=== PATIENT | female | born 1945 | race Caucasian/White ===

== ENCOUNTER → 2017-05-22 | Outpatient (CLI) | payer MEDICARE, OTHER ==
--- NOTE | 2017-05-22 14:22 | Diagnostic Imaging Report ---
PROCEDURE: CT CHEST WITHOUT CONTRAST CT scan of the chest WITHOUT intravenous contrast, using standard protocol. TECHNIQUE: The chest was scanned utilizing a multidetector helical scanner from the apex to the level of the adrenal glands. No IV contrast was administered because of a referring physician request Coronal and sagittal multiplanar reformations were obtained. COMPARISON: The report for a chest radiograph from 12/07/2014 was available for review.. INDICATIONS: CHRONIC COUGH FINDINGS: Lines/tubes: None. Lungs and Airways: Mild, symmetric bilateral lower lobe predominant bronchiectasis, without endobronchial lesion or filling defect. Minimal linear scar in the inferior lingula. The lungs are otherwise well-inflated without focal abnormality. Pleura: The pleural spaces are clear. Heart and mediastinum: Visualized portions of the thyroid gland are unremarkable. No axillary, hilar, or mediastinal lymphadenopathy. There is atherosclerotic calcification of the coronary arteries, aortic root and great vessel origins. Incidental note of a separate origin of the left vertebral artery directly from the aortic arch, between the origins of the left common carotid and subclavian arteries. There is no ectasia or aneurysmal dilatation of the thoracic aorta. The pulmonary outflow tract is of normal caliber. Heart size is normal. There is prominent epicardial fat likely accounting for the perceived cardiomegaly on the comparison chest radiograph 12/07/2014. Soft tissues: Normal. Abdomen: There is a sub-centimeter hypoattenuating lesion in hepatic segment 2, too small to further characterize but likely representing a small cyst. Visualized portions of the spleen and adrenal glands are unremarkable. Bones: No osseous destructive lesions. Multilevel degenerative disc changes of the cervical and thoracic spine. IMPRESSION: No acute thoracic CT abnormalities. Mild symmetric lower lobe bronchiectasis, likely a sequela of prior infection. Atherosclerotic vascular disease. Dictated by: Tanner Kelly M.D. on 05/22/2017 at 14:22 Electronically approved by: Tanner Kelly M.D. on 05/22/2017 at 14:22
== END ==
LOC: CT 13:39
PROVIDERS: ATTEND Internal Medicine
DX: R05 Cough (principal)
CPT/HCPCS: 71250

== ENCOUNTER → 2017-05-29 | Outpatient (CLI) | payer MEDICARE, OTHER | LOC: RESP 14:54 | PROVIDERS: ATTEND Internal Medicine | DX: R05 Cough (principal) ==

== ENCOUNTER 2017-07-09 08:12 | Emergency (ER) | payer MEDICARE, OTHER ==
[~2017-07-09] VITALS: Ht 165.1 cm; Wt 97.5 kg
--- OUTSIDE RECORDS SUMMARY | 2017-07-09 08:16 | XMS REPORT ---
Author Author [facility] Address Unknown Phone Unavailable Care Team Providers Care Editing Computer Publisher Name Role Phone LILI ERICKSON Unavailable Unavailable Problems This patient has no known problems. Allergies, Adverse Reactions, Alerts This patient has no known allergies or adverse reactions. Medications This patient has no known medications. Results Test Description Test Time Test Comments Text Results Atomic Results Result Comments CT CHEST WO [place] [address] Patient Name: COLLINS MAHAN MR #: [id number] : 1945 Age/Sex: 72/F Req #: [id number] Adm Physician: Ordered by: LILI ERICKSON MD Report #: [id number] Location: CT Room/Bed: Procedure: [id number] CT/CT CHEST WO Exam Date: 05/22/17 Exam Time: 1400 REPORT STATUS: Signed PROCEDURE: CT CHEST WITHOUT CONTRAST CT scan of the chest WITHOUT intravenous contrast, using standard protocol. TECHNIQUE: The chest was scanned utilizing a multidetector helical scanner from the apex to the level of the adrenal glands. No IV contrast was administered because of a referring physician request Coronal and sagittal multiplanar reformations were obtained. COMPARISON: The report for a chest radiograph from 12/07/2014 was available for review.. INDICATIONS : CHRONIC COUGH FINDINGS: Lines/tubes: None. Lungs and Airways: Mild, symmetric bilateral lower lobe predominant bronchiectasis, without endobronchial lesion or filling defect. Minimal linear scar in the inferior lingula. The lungs are otherwise well-inflated without focal abnormality. Pleura: The pleural spaces are clear. Heart and mediastinum: Visualized portions of the thyroid gland are unremarkable. No axillary, hilar, or mediastinal lymphadenopathy. There is atherosclerotic calcification of the coronary arteries, aortic root and great vessel origins. Incidental note of a separate origin of the left vertebral artery directly from the aortic arch, between the origins of the left common carotid and subclavian arteries. There is no ectasia or aneurysmal dilatation of the thoracic aorta. The pulmonary outflow tract is of normal caliber. Heart size is normal. There is prominent epicardial fat likely accounting for the perceived cardiomegaly on the comparison chest radiograph 12/07/2014. Soft tissues: Normal. Abdomen: There is a sub-centimeter hypoattenuating lesion in hepatic segment 2, too small to further characterize but likely representing a small cyst. Visualized portions of the spleen and adrenal glands are unremarkable. Bones: No osseous destructive lesions. Multilevel degenerative disc changes of the cervical and thoracic spine. IMPRESSION: No acute thoracic CT abnormalities. Mild symmetric lower lobe bronchiectasis, likely a sequela of prior infection. Atherosclerotic vascular disease. Dictated by: Amira Villalba M.D. on 05/22/2017 at 14:22 Electronically approved by: Amira Villalba M.D. on 05/22/2017 at 14:22 Dictated By : AMIRA VILLALBA MD 1422 Transcribed By: EUGENE on 05/22/17 1422 COPY TO: LILI ERICKSON MD
--- NOTE | 2017-07-09 09:14 | Diagnostic Imaging Report ---
PROCEDURE:KNEE LEFT THREE VIEWS COMPARISON:None. INDICATIONS:FALL FINDINGS: No acute, displaced fracture or dislocation. Moderate medial compartment predominant tricompartmental joint space narrowing with marginal osteophytosis. No definite joint effusion. Soft tissues are unremarkable. CONCLUSION: No acute osseous abnormality. Dictated by: Tanner Kelly M.D. on 07/09/2017 at 9:15 Electronically approved by: Tanner Kelly M.D. on 07/09/2017 at 9:15
--- NOTE | 2017-07-09 09:18 | Diagnostic Imaging Report ---
PROCEDURE:X-RAY RIGHT SHOULDER, COMPLETE COMPARISON:None. INDICATIONS:FALL FINDINGS: No acute, displaced fracture or dislocation. The humeral head projects appropriately adjacent to the glenoid. Mild acromioclavicular and glenohumeral degenerative joint disease. Soft tissues are unremarkable.. CONCLUSION: No acute osseous abnormality. Dictated by: Tanner Kelly M.D. on 07/09/2017 at 9:19 Electronically approved by: Tanner Kelly M.D. on 07/09/2017 at 9:19
--- NOTE | 2017-07-09 09:19 | Diagnostic Imaging Report ---
PROCEDURE:X-RAY RIGHT HUMERUS, TWO OR MORE VIEWS COMPARISON:Right shoulder radiographs same day. INDICATIONS:FALL FINDINGS: No acute, displaced fracture or dislocation. Mild acromioclavicular and glenohumeral degenerative joint disease. Soft tissues are unremarkable. CONCLUSION: No acute osseous abnormalities. Dictated by: Tanner Kelly M.D. on 07/09/2017 at 9:21 Electronically approved by: Tanner Kelly M.D. on 07/09/2017 at 9:21
[2017-07-09] MEDS ORDERED: TRAMADOL HCL 50 MG TAB ONE (09:40)
[2017-07-09] MEDS ORDERED: TRAMADOL HCL 50 MG TAB PO ONE (09:45)
[2017-07-09 10:38] VITALS: BP 159/100
== END 2017-07-09 10:48 | disposition home or self-care (01) ==
LOC: ER 08:12
DX: M25.461 Effusion, right knee (principal); S80.01XA Contusion of right knee, initial encounter; S83.411A Sprain of medial collateral ligament of right knee, initial encounter; S83.421A Sprain of lateral collateral ligament of right knee, initial encounter; S40.011A Contusion of right shoulder, initial encounter; S40.021A Contusion of right upper arm, initial encounter; W01.0XXA Fall on same level from slipping, tripping and stumbling without subsequent striking against object, initial encounter; Y92.008 Other place in unspecified non-institutional (private) residence as the place of occurrence of the external cause
CPT/HCPCS: 99284

== ENCOUNTER → 2017-12-28 | Outpatient (CLI) | payer MEDICARE, OTHER ==
--- NOTE | 2018-01-13 09:06 | Diagnostic Imaging Report ---
#[id number] - MGSCRBIL #BILATERAL DIGITAL SCREENING MAMMOGRAM WITH CAD: 12/28/2017 CLINICAL: Routine screening. Comparison to 06/13/2016 mammogram - [facility] is NOT possible due to issues with PACS retrieval. Current study contains 4 films. There are scattered fibroglandular elements in both breasts. Current study was also evaluated with a Computer Aided Detection (CAD) system. There are benign calcifications and an intramammary node in the right breast. There also is a benign calcification in the left breast. Breast tissue asymmetry in the upper outer aspect of the left breast is present. No significant masses, calcifications, or other findings are seen in either breast. There has been no significant interval change. IMPRESSION: BENIGN There is no mammographic evidence of malignancy. A 1 year screening mammogram is recommended. The patient will be notified by letter of the results. Alessandro Villanueva Jr., D.O. cw/:01/12/2018 14:20:00 [employer]: Felecia WARREN(Salma)(Agustin), [facility] letter sent: Normal Exam Mammogram BI-RADS: 2 Benign
== END ==
LOC: MAMMO 11:45
PROVIDERS: ATTEND Internal Medicine
DX: Z12.31 Encounter for screening mammogram for malignant neoplasm of breast (principal)
CPT/HCPCS: 77067

== ENCOUNTER 2018-04-23 13:40 | Emergency (ER) | payer MEDICARE, OTHER ==
[~2018-04-23] VITALS: Ht 165.1 cm; Wt 97.5 kg
[2018-04-23] MEDS ORDERED: BUPROPION XL150 MG PO (14:15)
[2018-04-23] MEDS ORDERED: GLYBURIDE5 MG PO (14:15)
[2018-04-23] MEDS ORDERED: LEVOTHYROXINE75 MCG PO (14:15)
[2018-04-23] MEDS ORDERED: FLUPHENAZINE H2.5 MG PO (14:15)
[2018-04-23] MEDS ORDERED: MELOXICAM7.5 MG PO (14:15)
[2018-04-23] MEDS ORDERED: OXAZEPAM15 MG PO (14:15)
[2018-04-23] MEDS ORDERED: ASPIRIN CHEW81 MG PO (14:15)
[2018-04-23] MEDS ORDERED: LOSARTAN POTASS25 MG PO (14:15)
[2018-04-23] MEDS ORDERED: TRIHEXYPHENIDYL5 MG PO (14:15)
--- NOTE | 2018-04-23 15:10 | Diagnostic Imaging Report ---
CT BRAIN [facility] HISTORY: Fall COMPARISON: None. Technique: Noncontrast axial scans were obtained from skull base to the vertex. Coronal and sagittal reconstructions obtained from the axial data. One or more of the following dose reduction techniques were used: Automated exposure control, adjustment of the mA and/or kV according to patient size, and/or utilization of iterative reconstruction technique. DISCUSSION: Scalp/Skull: Right frontal scalp/superficial periorbital hematoma is present. No calvarial fracture is seen. Brain sulci: Mildly prominent. Ventricles: Compensatory dilatation. Extra-axial spaces: No masses or fluid collections. Carotid siphon and vertebral artery calcifications are present. Parenchyma: Mild bilateral deep white matter hypodensity is likely chronic microvascular ischemic change. Otherwise, no masses, hemorrhage, or large vascular territory acute infarct. Dural sinuses: No abnormal densities. Sellar/Suprasellar region: Intact. Skull base: Intact. Incidental findings: The right ocular lens is thinned. IMPRESSION: 1. No acute intracranial abnormalities. 2. Mild supratentorial chronic microvascular ischemic change. Mild generalized cerebral volume loss. Signed by: Dr. Benito Gonzalez M.D. on 04/23/2018 3:07 PM
--- NOTE | 2018-04-23 15:35 | Diagnostic Imaging Report ---
Radiographs of the right knee - 2 views HISTORY: Pain COMPARISON: None available. FINDINGS: Bones: No acute displaced fracture. Osseous alignment is within normal limits. Joints: Moderate tricompartmental degenerative arthrosis. No osseous erosion Soft tissues: The soft tissues appear unremarkable. IMPRESSION: Moderate tricompartmental degenerative arthrosis. No osseous erosion Signed by: Dr. John Juraez M.D. on 04/23/2018 3:31 PM
--- NOTE | 2018-04-23 15:36 | Diagnostic Imaging Report ---
Radiographs of the right shoulder - 2 views HISTORY: Pain COMPARISON: None available. FINDINGS: Bones: No acute displaced fracture. Osseous alignment is within normal limits. Joints: Scattered degenerative change. No osseous erosion. Surgical anchors in the right humeral head. Soft tissues: The soft tissues appear unremarkable. IMPRESSION: Scattered degenerative change. No osseous erosion. Signed by: Dr. John Juarez M.D. on 04/23/2018 3:32 PM
[2018-04-23] MEDS ORDERED: ULTRAM50 MG PO (15:44)
== END 2018-04-23 16:00 | disposition home or self-care (01) ==
LOC: FSED 13:40
DX: S00.83XA Contusion of other part of head, initial encounter (principal); S00.11XA Contusion of right eyelid and periocular area, initial encounter; S80.01XA Contusion of right knee, initial encounter; M25.511 Pain in right shoulder; W01.0XXA Fall on same level from slipping, tripping and stumbling without subsequent striking against object, initial encounter; Y92.008 Other place in unspecified non-institutional (private) residence as the place of occurrence of the external cause; I10 Essential (primary) hypertension; E11.9 Type 2 diabetes mellitus without complications; E03.9 Hypothyroidism, unspecified; F31.9 Bipolar disorder, unspecified; Z85.850 Personal history of malignant neoplasm of thyroid
CPT/HCPCS: 70450; 99284

== ENCOUNTER 2018-05-02 08:25 | Emergency (ER) | payer MEDICARE ==
[~2018-05-02] VITALS: Ht 165.1 cm; Wt 99.8 kg
[~2018-05-02 08:25] MED LIST: ASPIRIN CHEW81 MG PO; BUPROPION XL150 MG PO; FLUPHENAZINE H2.5 MG PO; GLYBURIDE5 MG PO; LEVOTHYROXINE75 MCG PO; LOSARTAN POTASS25 MG PO; MELOXICAM7.5 MG PO; OXAZEPAM15 MG PO; TRIHEXYPHENIDYL5 MG PO; ULTRAM50 MG PO
[2018-05-02] MEDS ORDERED: ONDANSETRON HCL 4 MG ORAL DISINTEGRATING TAB PO ONE (09:00)
[2018-05-02] MEDS ORDERED: ACETAMINOPHEN 325 MG TAB PO ONE (09:00)
--- NOTE | 2018-05-02 10:16 | NUR ---
PT WAITING FOR SHOULDER XRAY. XRAY MACHINE IS DOWN. PT AND FAMILY MADE AWARE OF SITUATION. DR AT BEDSIDE TO DISCUSS OTHER OPTIONS WITH PATIENT
--- NOTE | 2018-05-02 10:30 | NUR ---
INFORMATION BROKER ADVISED SHE IS ABLE TO TAKE SHOULDER XRAY. PT TO RADIOLOGY FOR XRAY.
[2018-05-02 10:42] VITALS: BP 175/77
--- NOTE | 2018-05-02 10:53 | Diagnostic Imaging Report ---
Left Shoulder - Two Views HISTORY: Shoulder pain. COMPARISON: None FINDINGS: Bones: No acute displaced fracture. Osseous alignment is within normal limits. Joints: Mild degenerative changes in the left glenohumeral and acromioclavicular joints. Soft tissues: The soft tissues appear unremarkable.] IMPRESSION: No acute radiographic abnormality. Mild left shoulder osteoarthritis. Signed by: Dr. Bailey Shay MD on 05/02/2018 10:50 AM
== END 2018-05-02 10:59 | disposition home or self-care (01) ==
LOC: FSED 08:25
DX: M25.512 Pain in left shoulder (principal); S43.422A Sprain of left rotator cuff capsule, initial encounter; W01.0XXA Fall on same level from slipping, tripping and stumbling without subsequent striking against object, initial encounter; Y92.008 Other place in unspecified non-institutional (private) residence as the place of occurrence of the external cause
CPT/HCPCS: 73030; 99283; Q0162

== ENCOUNTER → 2018-06-09 | Outpatient (CLI) | payer MEDICARE, BC ==
--- NOTE | 2018-06-09 13:44 | Diagnostic Imaging Report ---
History:Pain right side of the head Comparison studies:CT head 2 8745 Technique: Axial images were obtained from the skull base to the vertex. Coronal and sagittal images reconstructed from the axial data. Intravenous contrast: None Dose modulation, iterative reconstruction, and/or weight based adjustment of the mA/kV was utilized to reduce the radiation dose to as low as reasonably achievable. Findings: Scalp/skull: Near resolution of the right frontal scalp hematoma. Extra-axial spaces: No masses. No fluid collections. Brain sulci: Mildly prominent. Ventricles: Mild compensatory dilatation. No hydrocephalus. Parenchyma: Few small hypodensities in the supratentorial white matter are small vessel ischemic changes. Small hypodensity at the left anterior limb internal capsule, likely related to chronic lacunar infarct No masses, hemorrhage, acute or chronic cortical vascular insults. Sellar/suprasellar region: No abnormalities. Craniocervical junction: Patent foramen magnum. No Chiari one malformation. Incidental findings: Atherosclerotic calcifications in the carotid siphons and vertebral arteries . Impression: No acute abnormalities. Chronic findings: 1. Mild generalized volume loss. 2. Mild supratentorial white matter small vessel ischemic changes. Signed by: DR Alexy Cummins M.D. on 06/09/2018 1:40 PM
== END ==
LOC: CT 11:39
PROVIDERS: ATTEND Internal Medicine
DX: S00.83XA Contusion of other part of head, initial encounter (principal); W18.30XA Fall on same level, unspecified, initial encounter
CPT/HCPCS: 70450

== ENCOUNTER → 2018-12-21 | Outpatient (CLI) | payer MEDICARE | LOC: MAMMO 12:46 | PROVIDERS: ATTEND Internal Medicine | DX: Z12.31 Encounter for screening mammogram for malignant neoplasm of breast (principal) | CPT/HCPCS: 77067 ==

== ENCOUNTER → 2019-05-18 | Outpatient (CLI) | payer MEDICARE ==
[~2019-05-18] MED LIST changes: +CRESTOR10 MG PO; +METFORMIN HCL850 MG PO; +METOPROLOL SUCC50 MG PO
[2019-05-18 12:23] LABS: BASOPHILS % 0.6 % (0.0-1.0); EOSINOPHILS # (AUTO) 0.1 (0.0-0.4); EOSINOPHILS % 1.4 % (0.0-6.0); HEMATOCRIT 38.5 % (34.2-44.1); HEMOGLOBIN 12.6 g/dL (12.0-16.0); LYMPHOCYTES # (AUTO) 1.9 (1.0-3.2); LYMPHOCYTES % 27.3 % (18.0-39.1); MEAN CORPUSCULAR HEMOGLOBIN 31.1 pg (28-32); MEAN CORPUSCULAR HGB CONC 32.7 g/dL (31-35); MEAN CORPUSCULAR VOLUME 95.1 fL (81-99); MONOCYTES # (AUTO) 0.5 (0.2-0.8); MONOCYTES % 6.6 % (4.4-11.3); NEUTROPHILS # (AUTO) 4.4 (2.1-6.9); NEUTROPHILS % 63.7 % (38.7-80.0); PLATELET COUNT 205 x10e3/uL (140-360); RED BLOOD COUNT 4.05 x10e6/uL (3.6-5.1); RED CELL DISTRIBUTION WIDTH 12.7 % (11.7-14.4)
== END ==
LOC: DX 15:22 → EDSTATUS 05-20 13:30
PROVIDERS: ATTEND Internal Medicine Gastroenterology
DX: Z01.818 Encounter for other preprocedural examination (principal); K92.1 Melena; K59.00 Constipation, unspecified; K30 Functional dyspepsia
CPT/HCPCS: 36415; 85025; 93005

== ENCOUNTER 2019-08-12 15:30 | Observation (INO) | payer MEDICARE, OTHER ==
[~2019-08-12] VITALS: Ht 165.1 cm; Wt 96.8 kg
--- OUTSIDE RECORDS SUMMARY | 2019-08-12 15:33 | XMS REPORT ---
Author Author [facility] t Organization [facility] Address [address] [place] [address] [address]. [address] [place] [address] Phone Unavailable Care Team Providers Care Medical Observer Name Role Phone KATHERIN KRAMER MD PCP KATHERIN KRAMER Attphys Unavailable Julia TIWARI Attphys Unavailable DUCHAMP, A PREETHI Attphys Unavailable Pete PELLETIER Attphys Unavailable GEORGINALILI Attphys Unavailable Payers Payer Name Policy Type Policy Number Effective Date Expiration Date S sacha [employer]et[employer] Medicare Replacement [id number] 2018 00:00:00 [facility] AARP [id number] 2017 00:00:00 [facility] Aetna Pos [id number] 2015 00:00:00 [facility] Medicare A & B [id number] 2010 00:00:00 Pete [facility] Problems This patient has no known problems. Allergies, Adverse Reactions, Alerts Allergy Name Allergy Type Status Severity Reaction(s) Onset Date Inacti ve Date Treating Clinician Comments Source codeine DA Active SV 2017-08-14 00:00:00 [facility] Codeine Allergy to Substance Active 2017-07-09 00:00:00 [facility] Medications Ordered Medication Name Filled Medication Name Start Date Stop Da te Current Medication? Ordering Clinician Indication Dosage Frequency Signature (SIG) Comments Components Source Tramadol Hcl (Ultram) 50 Mg Tablet Tramadol Hcl (Ultram) 50 Mg Tablet 2018-04-23 00:00:00 Yes Preethi Trujillo Md 1 Every 6 Hours as n eeded for Pain [facility] Aspirin (Aspirin Chew) 81 Mg Chew Aspirin (Aspirin Chew) 81 Mg Chew Yes 81 Daily [facility] Bupropion Hcl (Bupropion Xl) 150 Mg Tab.er.24h Bupropi on Hcl (Bupropion Xl) 150 Mg Tab.er.24h Yes 300 Daily [facility] Fluphenazine Hcl 2.5 Mg Tab Fluphenazine Hcl 2.5 Mg Tab Yes 1 Four Times Daily [facility] Glyburide 5 Mg Tablet Glyburide 5 Mg Tablet Yes 2 Twice A Day [facility] Levothyroxine Sodium 75 Mcg Tablet Levothyroxine Sodium 75 Mcg Tablet Yes 75 Daily [facility] Losartan Potassium 25 Mg Tablet Losartan Potassium 25 Mg Tablet Yes 1 Daily [facility] Meloxicam 7.5 Mg Tablet Meloxicam 7.5 Mg Tablet Yes 7. 5 Daily [facility] Oxazepam 15 Mg Cap Oxazepam 15 Mg Cap Yes 1 Th ree Times A Day [facility] Trihexyphenidyl Hcl 5 Mg Tablet Trihexyphenidyl Hcl 5 Mg Tablet Yes 1 Daily [facility] Procedures This patient has no known procedures. Encounters Start Date/Time End Date/Time Encounter Type Admission Type Attendi RUST Care Department Encounter ID Source 2018-11-09 11:28:00 2018-11-09 11:28:00 Outpatient SE [id number] 2018-05-02 08:25:00 2018-05-02 10:59:00 Departed Emergency Room 1 PEDRO TIWARI [facility] [id number] [facility] 2018-04-23 13:40:00 2018-04-23 16:00:00 Departed Emergency Room 1 PREETHI TRUJILLO [facility] [id number] [facility] 2017-12-28 11:45:2017-12-28 11:45:00 Registered Clinic 3 KATHERIN ROSSI [facility] [id number] [facility] 2017-07-09 08:12:00 2017-07-09 10:48:00 Departed Emergency Room ER MICHELLE PELLETIER [facility] [id number] [facility] 2017-05-29 14:54:00 2017-05-29 14:54:00 Registered Clinic [facility] [id number] [facility] 2017-05-22 13:39:00 2017-05-22 13:39:00 Registered Clinic LILI MUJICA [facility] [id number] [facility] Results Test Description Test Time Test Comments Results Result Comments Source MAMMOGRAPHY DIGITAL SCR BILAT 2018-12-21 13:16:00 [place] [address] Patient Name: COLLINS MAHAN MR #: [id number] : 1945 Age/Sex: 73/F Req #: [id number] [facility] Physician: Ordered by: KATHERIN KRAMER MD Report #: [id number] Location: MAMMO Room/Bed: Procedure: [id number] MG/MAMMOGRAPHY DIGITAL SCR BILAT Exam Date: 12/21/18 Exam Time: 1300 REPORT STATUS: Signed #[id number] - MGSCRBIL #BILATERAL DIGITAL SCREENING MAMMOGRAM WITH CAD: 12/21/2018 CLINICAL: Routine screening. Comparison is made to exams dated: 12/28/2017 mammogram and 06/13/2016 mammogram - [facility]. Current study contains 4 films. There are scattered fibroglandular elements in both breasts. Current study was also evaluated with a Computer Aided Detection (CAD) system. There are benign calcifications and an intramammary node in the right breast. There also is a benign calcification in the left breast. Breast tissue asymmetry in the upper outer aspect of the left breast is stab le. No significant masses, calcifications, or other findings are seen in either breast. IMPRESSION: BENIGN There is no mammographic evidence of malignancy. A 1 year screening mammogram is recommended. The patient will be notified by letter of the results. SARA harrison/freida:12/23/2018 09:11:02 University Librarian: Felecia CAPONE)(Agustin), [facility] letter sent: Normal Exam Mammogram BI-RADS: 2 Benign Dictated By: SARA HUNTER MD 0 Transcribed By: FREIDA on 12/23/18910 COPY TO: KATHERIN KRAMER MD CT BRAIN WO 2018-06-09 13:38:00 [place] [address] Patient Name: COLLINS MAHAN MR #: [id number] : 1945 Age/Sex: 73/F Req #: [id number] Adm Physician: Ordered by: KATHERIN KRAMER MD Report #: [id number] Location: CT Room/Bed: Procedure: [id number] CT/CT BRAIN WO Exam Date: 06/09/18 Exam Time: 1210 REPORT STATUS: Signed History:Pain right side of the head Comparison studies:CT head 2 6756 Technique: Axial images were obtained from the skull base to the vertex. Coronal and sagittal images reconstructed from the axial data. Intravenous contrast: None Dose modulation, iterative reconstruction, and/or weight based adjustment of the mA/kV was utilized to reduce the radiation dose to as low as reasonably achievable. Findings: Scalp/skull: Near resolution of the right frontal scalp hematoma. Extra-axial spaces: No masses. No fluid collections. Brain sulci: Mildly prominent. Ventricles: Mild compensatory dilatation. No hydrocephalus. Parenchyma: Few small hypodensities in the supratentorial white matter are small vessel ischemic changes. Small hypodensity at the left anterior limb internal capsule, likely related to chronic lacunar infarct No masses, hemorrhage, acute or chronic cortical vascular insults. Sellar/suprasellar region: No abnormalities. Craniocervical junction: Patent foramen magnum. No Chiari one malformation. Incidental findings: Atherosclerotic calcifications in the carotid siphons and vertebral arteries . Impression: No acute abnormalities. Chronic findings: 1. Mild generalized volume loss. 2. Mild supratentorial white matter small vessel ischemic changes. Signed by: DR Alexy Cummins M.D. on 06/09/2018 1:40 PM Dictated By: ALEXY SNIDER MD 1340 Transcribed By: ELIER on 06/09/18 1340 COPY TO: KATHERIN KRAMER MD [facility] 2018-05-02 10:48:00 [place] [address] Patient Name: COLLINS MAHAN MR #: [id number] : 1945 Age/Sex: 73/F Req #: [id number] Adm Physician: Ordered by: PEDRO TIWARI MD Report #: [id number] Location: [facility] Room/Bed: Procedure: [id number] HOPD/SHOULDER 2+VW LT -HOPD Exam Date: 05/02/18 Exam Time: 1028 REPORT STATUS: Signed Left Shoulder - Two Views HISTORY: Shoulder pain. COMPARISON: None FINDINGS: Bones: No acute displaced fracture. Osseous alignment is within normal limits. Joints: Mild degenerative changes in the left glenohumeral and acromioclavicular joints. Soft tissues: The soft tissues appear unremarkable.] IMPRESSION: No acute radiographic abnormality. Mild left shoulder osteoarthritis. Signed by: Dr. Gilberto Fall MD on 05/02/2018 10:50 AM Dictated By: GILBERTO FALL MD 1050 Transcribed By: ELIER on 05/02/18 1050 COPY TO: PEDRO TIWARI MD SHOULDER 2+VW RT - HOPD 2018-04-23 15:31:00 [place] [address] Patient Name: COLLINS MAHAN MR #: [id number] : 1945 Age/Sex: 73/F Req #: [id number] [facility] Physician: Ordered by: PREETHI TRUJILLO MD Report #: [id number] Location: [facility] Room/Bed: Procedure: HOPD/SHOULDER 2+VW RT - HOPD Exam Date: 04/23/18 Exam Time: 1508 REPORT STATUS: Signed Radiographs of the right shoulder - 2 views HISTORY: Pain COMPARISON: None available. FINDINGS: Bones: No acute displaced fracture. Osseous alignment is within normal limits. Joints: Scattered degenerative change. No osseous erosion. Surgical anchors in the right humeral head. Soft tissues: The soft tissues appear unremarkable. IMPRESSION: Scattered degenerative change. No osseous erosion. Signed by: Dr. Raymond Juarez M.D. on 04/23/2018 3:32 PM Dictated By: RAYMOND JUAREZ MD, MD 153 Transcribed By: ELIER on 04/23/18 153 COPY TO: PREETHI TRUJILLO MD KNEE 2VIEW RT - HOPD 2018-04-23 15:30:00 [place] [address] Patient Name: COLLINS MAHAN MR #: [id number] : 1945 Age/Sex: 73/F Req #: [id number] Adm Physician: Ordered by: PREETHI TRUJILLO MD Report #: [id number] Location: [facility] Room/Bed: Procedure: [id number] HOPD/KNEE 2VIEW RT - HOPD Exam Date: 04/23/18 Exam Time: 1511 REPORT STATUS: Signed Radiographs of the right knee - 2 views HISTORY: Pain COMPARISON: None available. FINDINGS: Bones: No acute displaced fracture. Osseous alignment is within normal limits. Joints: Moderate tricompartmental degenerative arthrosis. No osseous erosion Soft tissues: The soft tissues appear unremarkable. IMPRESSION: Moderate tricompartmental degenerative arthrosis. No osseous erosion Signed by: Dr. Raymond Juarez M.D. on 04/23/2018 3:31 PM Dictated By: RAYMOND JUAREZ MD, MD 1531 Transcribed By: ELIER on 04/23/18 1531 COPY TO: PREETHI TRUJILLO MD CT BRAIN WO-HOPD 2018-04-23 15:02:00 [place] [address] Patient Name: COLLINS MAHAN MR #: [id number] : 1945 Age/Sex: 73/F Req #: [id number] Adm Physician: Ordered by: PREETHI TRUJILLO MD Report #: [id number] Location: [facility] Room/Bed: Procedure: [id number] HOPD/CT BRAIN WO-HOPD Exam Date: 04/23/18 Exam Time: 1459 REPORT STATUS: Signed CT BRAIN WO-HOPD HISTORY: Fall COMPARISON: None. Technique: Noncontrast axial scans were obtained from skull base to the vertex. Coronal and sagittal reconstructions obtained from the axial data. One or more of the following dose reduction techniques were used: Automated exposure control, adjustment of the mA and/or kV according to patient size, and/or utilization of iterative reconstruction technique. DISCUSSION: Scalp/Skull: Right frontal scalp/superficial periorbital hematoma is present. No calvarial fracture is seen. Brain sulci: Mildly prominent. Ventricles: Compensatory dilatation. Extra-axial spaces: No masses or fluid collections. Carotid siphon and vertebral artery calcifications are present. Parenchyma: Mild bilateral deep white matter hypodensity is likely chronic microvascular ischemic change. Otherwise, no masses, hemorrhage, or large vascular territory acute infarct. Dural sinuses: No abnormal densities. Sellar/Suprasellar region: Intact. Skull base: Intact. Incidental findings: The right ocular lens is thinned. IMPRESSION: 1. No acute intracranial abnormalities. 2. Mild supratentorial chronic microvascular ischemic change. Mild generalized cerebral volume loss. Signed by: Dr. Benito Gonzalez M.D. on 04/23/2018 3:07 PM Dictated By: BENITO GONZALEZ MD 06 Transcribed By: ELIER on 04/23/180 COPY TO: PREETHI TRUJILLO MD MAMMOGRAPHY DIGITAL SCR BILAT 2017-12-28 12:32:00 [place] [address] Patient Name: COLLINS MAHAN MR #: [id number] : 1945 Age/Sex: 73/F Req #: [id number] Adm Physician: Ordered by: KATHERIN KRAMER MD Report #: [id number] Location: MAMMO Room/Bed: Procedure: [id number] MG/MAMMOGRAPHY DIGITAL SCR BILAT Exam Date: 12/28/17 Exam Time: 1150 REPORT STATUS: Signed #[id number] - MGSCRBIL #BILATERAL DIGITAL SCREENING MAMMOGRAM WITH CAD: 12/28/2017 CLINICAL: Routine screening. Comparison to 06/13/2016 mammogram - [facility] is NOT possible due to issues with PACS retrieval. Current study contains 4 films. There are scattered fibroglandular elements in both breasts. Current study was also evaluated with a Computer Aided Detection (CAD) system. There are benign calcifications and an intramammary node in the right breast. There also is a benign calcification in the left breast. Breast tissue asymmetry in the upper outer aspect of the left breast is present. No significant masses, calcifications, or other findings are seen in either breast. There has been no significant interval change. IMPRESSION: BENIGN There is no mammographic evidence of malignancy. A 1 year screening mammogram is recommended. The patient will be notified by letter of the results. Alessandro Lynne Jr., D.O. cw/:01/12/2018 14:20:00 University Librarian: Felecia MYERS (R)), [facility] letter sent: Normal Exam Mammogram BI-RADS: 2 Benign Dictated By: ALESSANDRO LYNNE DO 19 Transcribed By: FREIDA on 01/12/181419 COPY TO: KATHERIN KRAMER MD KNEE LEFT THREE VIEWS [place] [address] Patient Name: COLLINS MAHAN MR #: [id number] : 1945 Age/Sex: 72/F Req #: [id number] Adm Physician: Ordered by: TERESA FORD NP Report #: [id number] Location: ER Room/Bed: Procedure: [id number] DX/KNEE LEFT THREE VIEWS Exam Date: 07/09/17 Exam Time: 0840 REPORT STATUS: Signed PROCEDURE: KNEE LEFT THREE VIEWS COMPARISON: None. INDICATIONS: FALL FINDINGS: No acute, displaced fracture or dislocation. Moderate medial compartment predominant tricompartmental joint space narrowing with marginal osteophytosis. No definite joint effusion. Soft tissues are unremarkable. CONCLUSION: No acute osseous abnormality. Dictated by: Amira Kelly M.D. on 07/09/2017 at 9:15 Electronically approved by: Amira Kelly M.D. on 07/09/2017 at 9:15 Dictated By: AMIRA KELLY MD 4 Transcribed By: EUGENE on 07/09/17914 COPY TO: TERESA FORD NP SHOULDER RIGHT COMPLETE [facility] [address] [place] [address] Patient Name: COLLINS MAHAN MR #: [id number] : 1945 Age/Sex: 72/F Req #: [id number] Adm Physician: Ordered by: TERESA FORD NP Report #: [id number] Location: ER Room/Bed: Procedure: [id number] DX/SHOULDER RIGHT COMPLETE Exam Date: 07/09/17 Exam Time: 0840 REPORT STATUS: Signed PROCEDURE: X-RAY RIGHT SHOULDER, COMPLETE COMPARISON: None. INDICATIONS: FALL FINDINGS: No acute, displaced fracture or dislocation. The humeral head projects appropriately adjacent to the glenoid. Mild acromioclavicular and glenohumeral degenerative joint disease. Soft tissues are unremarkable.. CONCLUSION: No acute osseous abnormality. Dictated by: Amira Kelly M.D. on 07/09/2017 at 9:19 Electronically approved by: Amira Kelly M.D. on 07/09/2017 at 9:19 Dictated By: AMIRA KELLY MD 8 Transcribed By: EUGENE on 07/09/17918 COPY TO: TERESA FORD NP HUMERUS RIGHT 2+VIEWS [place] [address] Patient Name: COLLINS MAHAN MR #: [id number] : 1945 Age/Sex: 72/F Req #: [id number] Adm Physician: Ordered by: TERESA FORD NP Report #: [id number] Location: ER Room/Bed: Procedure: [id number] DX/HUMERUS RIGHT 2+VIEWS Exam Date: 07/09/17 Exam Time: 0840 REPORT STATUS: Signed PROCEDURE: X-RAY RIGHT HUMERUS, TWO OR MORE VIEWS COMPARISON: Right shoulder radiographs same day. INDICATIONS: FALL FINDINGS: No acute, displaced fracture or dislocation. Mild acromioclavicular and glenohu meral degenerative joint disease. Soft tissues are unremarkable. CONCLUSION: No acute osseous abnormalities. Dictated by: Amira Kelly M.D. on 07/09/2017 at 9:21 Electronically approved by: Amira Kelly M.D. on 07/09/2017 at 9:21 Dictated By: AMIRA KELLY MD 0 Transcribed By: EUGENE on 07/09/17920 COPY TO: TERESA FORD BIOCHEMICAL DEVELOPMENT ENGINEER CT CHEST WO [place] [address] Patient Name: COLLINS MAHAN MR #: [id number] : 1945 Age/Sex: 72/F Req #: [id number] Adm Physician: Ordered by: LILI ERICKSON MD Report #: [id number] Location: CT Room/Bed: Procedure: [id number] CT/CT CHEST WO Exam Date: 05/22/17 Exam [...] radiograph from 12/07/2014 was available for review.. INDICATIONS: CHRONIC COUGH FINDINGS: Lines/tubes: None. Lungs and [...] infection. Atherosclerotic vascular disease. Dictated by: Amira Kelly M.D. on 05/22/2017 at 14:22 Electronically approved by: Amira Kelly M.D. on 05/22/2017 at 14:22 Dictated By: AMIRA KELLY MD 1422 Transcribed By: EUGENE on 05/22/17 1422 COPY TO: LILI ERICKSON MD
[2019-08-12] MEDS ORDERED: ASPIRIN 325 MG TAB PO ONE (16:00)
--- NOTE | 2019-08-12 16:22 | Emergency Department Note ---
History of Present Illnes History of Present Illness Chief Complaint: c/o drooling for the last 2 days History of Present Illness This is a 74 year old female . Historian: Patient, Family Member Arrival Mode: Car Additional Treatment STEAM ROOM ATTENDANT: none Cyber Incident Handler Required: No Quality: drooling out of the right side of her face Radiation: non-radiation Severity: mild Onset quality: gradual Duration (how long): day(s) Progression: unchanged Chronicity: new Relieving factors: none Exacerbating factors: none Associated symptoms: denies other symptoms Treatments prior to arrival: none Past Medical/Family History Physician Review I have reviewed the patient's past medical and family history. Any updates have been documented here. Past Medical History Recent Fever: No Clinical Suspicion of Infectio: No New/Unexplained Change in Ment: No Past Medical History: Hypertension, Diabetes, Hypothyroidism, Cancer, Depression, Other Mental Illness, Hyperlipedemia, Chronic Back Pain Other Medical History: BIPOLAR THYROID CANCER SCHIZOPHRENIA Past Surgical History: Cholecysctectomy, T&A, Back Surgery Other Surgery: THYROIDECTOMY LEFT OVARY REMOVED Social History Smoking Cessation: Former smoker Alcohol Use: None Any Illegal Drug Use: No TB Exposure/Symptoms: No Physically hurt or threatened: No Other Last Tetanus: OOD Any Pre-Existing Lines (PICC,: No Review of Systems Review of Systems Constitutional: no symptoms EENTM: no symptoms Cardiovascular: no symptoms Respiratory: no symptoms Gastrointestinal: no symptoms Genitourinary: no symptoms Musculoskeletal: no symptoms Neurological: other (daughter states that pt not as alert as usual but has a history of dementia) Psychological: no symptoms Endocrine: no symptoms Hematological/Lymphatic: no symptoms Review of other systems All other systems reviewed and negative. Physical Exam Related Data Allergies: Coded Allergies: codeine (Verified Allergy, Unknown, 07/09/17) Triage Vital Signs Vital Signs Date Time Temp Pulse Resp B/P (MAP) Pulse Ox O2 Delivery O2 Flow Rate FiO2 08/12/19 15:43 98.4 67 14 184/84 97 Vital signs reviewed: Yes Physical Exam CONSTITUTIONAL Constitutional: well-developed, well-nourished HENT HENT: normocephalic, atraumatic, oropharynx clear/moist, oropharynx normal, nose normal, other (no drooling noted at this time daughter denies patient chocking with po intake) EYES Eyes: PERRL, conjunctivae normal, EOM normal, lids normal NECK Neck: ROM normal, supple; thyromegaly, tracheal deviation PULMONARY Pulmonary: effort normal, breath sounds normal, respiratory distress CARDIOVASCULAR Cardiovascular: regular rhythm, heart sounds normal, intact distal pulses, capillary refill normal, normal rate GASTROINTESTINAL Abdominal: soft, nontender, bowel sounds normal GENITOURINARY Genitourinary: exam deferred SKIN Skin: warm, dry MUSCULOSKELETAL Musculoskeletal: ROM normal NEUROLOGICAL Neurological: alert, oriented x 3, DTRs normal, no gross motor or sensory deficits, cranial nerve deficit PSYCHOLOGICAL Psychological: mood/affect normal, behavior normal Results Laboratory Laboratory cardiac markers bear 144 ow wnl. electrolytes glucose 175. U?A glucose 500 mg/dl high and small leuk esterase. CBC wnl except plt 142 vmildly decreased Imaging Imaging results reviewed: Yes Diagnostics Tests Diagnostic test(s) reviewed: Yes Diagnostic comments ekg nsr with 1st degree av block lateral t wave changes. CXR NAD and Ct brain small vessel ischemic changes and mild volume loss Critical Care Time Subsequent provider I assumed direction of critical care for this patient from another provider of my specialty. Assessment & Plan Assessment & Plan Final Impression: (1) PRSNL HX OF TIA (TIA), AND CEREB INFRC W/O RESID DEFICITS Depart Disposition: ADMITTED (admit for observation to DR pedraza) Last Vital Signs Date Time Temp Pulse Resp B/P (MAP) Pulse Ox O2 Delivery O2 Flow Rate FiO2 08/12/19 15:43 98.4 67 14 184/84 97 Home Meds Active Scripts Tramadol Hcl (ULTRAM) 50 Mg Tablet, 1 TAB PO Q6H PRN for PAIN, #20 TAB 0 Refills Prov:PARVEZ TRUJILLO MD 04/23/18 Reported Medications Metformin Hcl (METFORMIN HCL) 850 Mg Tablet, 1000 MG PO BID, #30 TAB 05/18/19 Metoprolol Succinate (METOPROLOL SUCCINATE) 50 Mg Tab.er.24h, 50 MG PO DAILY, MG 05/18/19 Rosuvastatin Calcium (CRESTOR) 10 Mg Tab, 5 MG PO HS THERAPEUTICALLY SUBSTITUTED WITH SIMVASTATIN 40MG 05/18/19 Aspirin (ASPIRIN CHEW) 81 Mg Chew, 81 MG PO DAILY, #30 TAB 04/23/18 Meloxicam (MELOXICAM) 7.5 Mg Tablet, 7.5 MG PO DAILY, #30 TAB 04/23/18 Levothyroxine Sodium (LEVOTHYROXINE SODIUM) 75 Mcg Tablet, 150 MCG PO DAILY, #30 TAB 04/23/18 Trihexyphenidyl Hcl (TRIHEXYPHENIDYL HCL) 5 Mg Tablet, 1 TAB PO DAILY 04/23/18 Bupropion Hcl (BUPROPION XL) 150 Mg Tab.er.24h, 300 MG PO DAILY 04/23/18 Fluphenazine Hcl (FLUPHENAZINE HCL) 2.5 Mg Tab, 1 TAB PO DAILY 04/23/18 Oxazepam (OXAZEPAM) 15 Mg Cap, 1 CAP PO HS 04/23/18 Medications in the ED Aspirin 325 mg ONCE ONCE PO ; Start 08/12/19 at 16:00; Stop 08/12/19 at 16:16; Status DC ROBBIE GUTIERREZ MD August 12, 2019 16:22
--- NOTE | 2019-08-12 16:43 | Diagnostic Imaging Report ---
History:Slurred speech for 2 days Comparison studies: CT brain 06/09/2018 Technique: Axial images were obtained from the skull base to the vertex. Coronal and sagittal images reconstructed from the axial data. Dose modulation, iterative reconstruction, and/or weight based adjustment of the mA/kV was utilized to reduce the radiation dose to as low as reasonably achievable. Intravenous contrast: None Findings: Scalp/skull: No abnormalities. Extra-axial spaces: No masses. No fluid collections. Brain sulci: Mildly prominent. Ventricles: Mild compensatory dilatation. No hydrocephalus. Parenchyma: Scattered hypodensities in the supratentorial white matter are small vessel ischemic changes. No masses, hemorrhage, acute or chronic cortical vascular insults. Sellar/suprasellar region: No abnormalities. Craniocervical junction: Patent foramen magnum. No Chiari one malformation. Incidental findings: Right intraocular lens replacement. Atherosclerotic calcifications in the carotid siphons an in the intradural vertebral arteries. IMPRESSION: No acute abnormalities. Chronic findings: 1. Mild generalized parenchymal volume loss. 2. Mild supratentorial white matter small vessel ischemic changes. I, Dr. Cabrera, agree with the preliminary impression of this report. Signed by: Dr. Tanner Cabrera M.D. on 08/12/2019 7:28 PM
--- NOTE | 2019-08-12 17:12 | NUR ---
lactic, bc x 2, covid swab obtained and called sql server consultant for transport to main lab.
--- NOTE | 2019-08-12 17:14 | Diagnostic Imaging Report ---
Examination: PA and lateral view of the chest. COMPARISON: None. INDICATION: Possible stroke DISCUSSION: Lines/tubes: None. Lungs: The lungs are well inflated and clear. No pneumonia or pulmonary edema. Pleura: No pleural effusion or pneumothorax. Heart and mediastinum: The heart and the mediastinum are unremarkable. Bones and soft tissues: No acute bony abnormalities. IMPRESSION: 1. No acute cardiopulmonary abnormalities. Signed by: Dr. Eldon Martinez M.D. on 08/12/2019 5:11 PM
[2019-08-12] MEDS ORDERED: CEFTRIAXONE SOD 1 GRAM/0.9% SOD CHL 50ML BAG IV ONE (17:30)
[2019-08-12] MEDS ORDERED: DEXTROSE 50% SYRINGE 50 ML IV PRN ×2 (17:30→19:00)
--- OUTSIDE RECORDS SUMMARY | 2019-08-12 17:46 | XMS REPORT ---
Author Author [facility] t Organization [facility] Address [facility] [address] [place] [address] Phone Unavailable Care Team Providers Care Car Dispatcher Name Role Phone WILLIAMS IVORY, KATHERIN PCP ROBBIE GUTIERREZ Attphys Unavailable KATHERIN KRAMER Attphys Unavailable Julia TIWARI Attphys Unavailable Johnnie TRUJILLO Attphys Unavailable Pete PELLETIER Attphys Unavailable GEORGINA, LILI Attphys Unavailable Payers Payer Name Policy Type Policy Number Effective Date Expiration Date S sacha [employer]etna Medicare Replacement [id number] 2018 00:00:00 [facility] AARP [id number] 2017 00:00:00 [facility] Aetna Pos [id number] 2015 00:00:00 [facility] Medicare A & B [id number] 2010 00:00:00 Pete [facility] Problems This patient has no known problems. Allergies, Adverse Reactions, Alerts Allergy Name Allergy Type Status Severity Reaction(s) Onset Date Inacti ve Date Treating Clinician Comments Source codeine DA Active SV 2017-08-14 00:00:00 [facility] Codeine Allergy to Substance Active 2017-07-09 00:00:00 [facility] Medications Ordered Medication Name Filled Medication Name Start Date Stop Da te Current Medication? Ordering Clinician Indication Dosage Frequency Signature (SIG) Comments Components Source Tramadol Hcl (Ultram) 50 Mg Tablet Tramadol Hcl (Ultram) 50 Mg Tablet 2018-04-23 00:00:00 Yes Preethi Trujillo Md 1 Every 6 Hours as n eeded for Pain [facility] Aspirin (Aspirin Chew) 81 Mg Chew Aspirin (Aspirin Chew) 81 Mg Chew Yes 81 Daily [facility] Bupropion Hcl (Bupropion Xl) 150 Mg Tab.er.24h Bupropi on Hcl (Bupropion Xl) 150 Mg Tab.er.24h Yes 300 Daily [facility] Fluphenazine Hcl 2.5 Mg Tab Fluphenazine Hcl 2.5 Mg Tab Yes 1 Four Times Daily [facility] Glyburide 5 Mg Tablet Glyburide 5 Mg Tablet Yes 2 Twice A Day [facility] Levothyroxine Sodium 75 Mcg Tablet Levothyroxine Sodium 75 Mcg Tablet Yes 75 Daily [facility] Losartan Potassium 25 Mg Tablet Losartan Potassium 25 Mg Tablet Yes 1 Daily [facility] Meloxicam 7.5 Mg Tablet Meloxicam 7.5 Mg Tablet Yes 7. 5 Daily [facility] Oxazepam 15 Mg Cap Oxazepam 15 Mg Cap Yes 1 Th ree Times A Day [facility] Trihexyphenidyl Hcl 5 Mg Tablet Trihexyphenidyl Hcl 5 Mg Tablet Yes 1 Daily [facility] Procedures This patient has no known procedures. Encounters Start Date/Time End Date/Time Encounter Type Admission Type [facility] Department Encounter ID Source 2018-11-09 11:28:00 2018-11-09 11:28:00 Outpatient SE [id number] 2018-05-02 08:25:00 2018-05-02 10:59:00 Departed Emergency Room 1 PEDRO TIWARI [facility] [id number] [facility] 2018-04-23 13:40:00 2018-04-23 16:00:00 Departed Emergency Room 1 PREETHI TRUJILLO [facility] [id number] [facility] 2017-12-28 11:45:00 2017-12-28 11:45:00 Registered Clinic KATHERIN PHILLIPS [facility] [id number] [facility] 2017-07-09 08:12:00 2017-07-09 10:48:00 Departed Emergency Room ER MICHELLE PELLETIER [facility] [id number] [facility] 2017-05-29 14:54:00 2017-05-29 14:54:00 Registered Clinic [facility] [id number] [facility] 2017-05-22 13:39:00 2017-05-22 13:39:00 Registered Clinic LILI MUJICA [facility] [id number] [facility] Results Test Description Test Time Test Comments Results Result Comments Source CXR 2 [facility] 2019-08-12 17:10:00 [place] [address] Patient Name: COLLINS MAHAN MR #: [id number] : 1945 Age/Sex: 74/F Req #: [id number] Adm Physician: Ordered by: ROBBIE GUTIERREZ MD Report #: [id number] Location: [facility] Room/Bed: Procedure: [id number] HOPD/CXR 2 VIEW - [facility] Exam Date: 08/12/19 Exam Time: 1636 REPORT STATUS: Signed Examination: PA and lateral view of the chest. COMPARISON: None. INDICATION: Possible stroke DISCUSSION: Lines/tubes: None. Lungs: The lungs are well inflated and clear. No pneumonia or pulmonary edema. Pleura: No pleural effusion or pneumothorax. Heart and mediastinum: The heart and the mediastinum are unremarkable. Bones and soft tissues: No acute bony abnormalities. IMPRESSION: 1. No acute cardiopulmonary abnormalities. Signed by: Dr. Donald Duran M.D. on 08/12/2019 5:11 PM Dictated By: DONALD DURAN MD 10 Transcribed By: ELIER on 08/12/191710 COPY TO: ROBBIE GUTIERREZ MD MAMMOGRAPHY DIGITAL SCR BILAT 2018-12-21 13:16:00 [place] [address] Patient Name: COLLINS MAHAN MR #: [id number] : 1945 Age/Sex: 73/F Req #: [id number] Adm Physician: Ordered by: KATHERIN KRAMER MD Report #: [id number] Location: MAMMO Room/Bed: Procedure: [id number] MG/MAMMOGRAPHY DIGITAL SCR BILAT Exam Date: 12/21/18 Exam Time: 1300 REPORT STATUS: Signed #[id number] - MGSCRBIL #BILATERAL DIGITAL SCREENING MAMMOGRAM WITH CAD: 12/21/2018 CLINICAL: Routine screening. Comparison is made to exams dated: 12/28/2017 mammogram and 06/13/2016 mammogram - [facility]. Current study contains 4 films. There are [...] letter of the results. SARA harrison/freida:12/23/2018 09:11:02 Wrist Closer: Felecia CAPONE)(Agustin), [facility] letter sent: Normal Exam Mammogram BI-RADS: 2 Benign Dictated By: SARA HUNTER MD 0 Transcribed By: FREIDA on 12/23/18910 COPY TO: KATHERIN KRAMER MD CT BRAIN WO 2018-06-09 13:38:00 [place] [address] Patient Name: COLLINS MAHAN MR #: [id number] : 1945 Age/Sex: 73/F Req #: [id number] Adm Physician: Ordered by: KATHERIN KRAMER MD Report #: [id number] Location: CT Room/Bed: Procedure: [id number] CT/CT BRAIN WO Exam Date: 06/09/18 Exam Time: 1210 REPORT STATUS: Signed History:Pain right side of the head Comparison studies:CT head 2 9681 Technique: Axial images were obtained from the [...] 06/09/18 1340 COPY TO: KATHERIN KRAMER MD SHOULDER 2+VW LT -HOPD 2018-05-02 10:48:00 [place] [address] Patient Name: COLLINS MAHAN MR #: [id number] : 1945 Age/Sex: 73/F Req #: [id number] Adm Physician: Ordered by: PEDRO TIWARI MD Report #: [id number] Location: [facility] Room/Bed: Procedure: [id number] HOPD/SHOULDER 2+VW LT -HOPD Exam Date: 05/02/18 [...] SHOULDER 2+VW RT - HOPD 2018-04-23 15:31:00 [place] [address] Patient Name: COLLINS MAHAN MR #: [id number] : 1945 Age/Sex: 73/F Req #: [id number] Adm Physician: Ordered by: PREETHI TRUJILLO MD Report #: [id number] Location: [facility] Room/Bed: Procedure: [id number] HOPD/SHOULDER 2+VW RT - HOPD Exam Date: [...] PM Dictated By: RAYMOND JUAREZ MD, MD 1532 Transcribed By: ELIER on 04/23/18 153 COPY TO: PREETHI TRUJILLO MD KNEE 2VIEW RT - HOPD 2018-04-23 15:30:00 [place] [address] Patient Name: COLLINS MAHAN MR #: [id number] : 1945 Age/Sex: 73/F Req #: [id number] Adm Physician: Ordered by: PREETHI TRUJILLO MD Report #: [id number] Location: [facility] Room/Bed: Procedure: [id number] HOPD/KNEE 2VIEW RT - HOPD Exam Date: [...] 04/23/18 153 COPY TO: PREETHI TRUJILLO MD CT BRAIN WO-HOPD 2018-04-23 15:02:00 [place] [address] Patient Name: COLLINS MAHAN MR #: [id number] : 1945 Age/Sex: 73/F Req #: [id number] Adm Physician: Ordered by: PREETHI TRUJILLO MD Report #: [id number] Location: [facility] Room/Bed: Procedure: [id number] HOPD/CT BRAIN WO-HOPD Exam Date: 04/23/18 Exam [...] 3:07 PM Dictated By: BENITO GONZALEZ MD 3276 Transcribed By: ELIER on 04/23/18 9881 COPY TO: PREETHI TRUJILLO MD TRIRIGA DIGITAL SCR BILAT 2017-12-28 12:32:00 [facility] [address] [place] [address] Patient Name: COLLINS MAHAN MR #: [id number] : 1945 Age/Sex: 73/F Req #: [id number] Adm Physician: Ordered by: KATHERIN KRAMER MD Report #: [id number] Location: MAMMO Room/Bed: Procedure: [id number] MG/MAMMOGRAPHY DIGITAL SCR BILAT Exam Date: 12/28/17 Exam Time: 1150 REPORT STATUS: Signed #[id number] - MGSCRBIL #BILATERAL DIGITAL SCREENING MAMMOGRAM WITH CAD: 12/28/2017 CLINICAL: Routine screening. Comparison to 06/13/2016 mammogram - [facility] is NOT possible due to issues with [...] results. Alessandro Lynne Jr., D.O. cw/:01/12/2018 14:20:00 Wrist Closer: Felecia CAPONE)(Agustin), [facility] letter sent: Normal Exam Mammogram BI-RADS: 2 Benign Dictated By: ALESSANDRO LYNNE DO 19 Transcribed By: FREIDA on 01/12/181419 COPY TO: KATHERIN KRAMER MD KNEE LEFT THREE VIEWS [place] [address] Patient Name: COLLINS MAHAN MR #: [id number] : 1945 Age/Sex: 72/F Req #: [id number] Adm Physician: Ordered by: TERESA FORD NP Report #: [id number] Location: ER Room/Bed: Procedure: [id number] DX/KNEE LEFT THREE VIEWS Exam Date: 07/09/17 [...] TO: TERESA FORD NP SHOULDER RIGHT COMPLETE [place] [address] Patient Name: COLLINS MAHAN MR #: [id number] : 1945 Age/Sex: 72/F Req #: [id number] Adm Physician: Ordered by: TERESA FORD AIRCRAFT ENGINE SPECIALIST Report #: [id number] Location: ER Room/Bed: Procedure: [id number] DX/SHOULDER RIGHT COMPLETE Exam Date: 07/09/17 Exam [...] TO: TERESA FORD NP HUMERUS RIGHT 2+VIEWS [place] [address] Patient Name: COLLINS MAHAN MR #: [id number] : 1945 Age/Sex: 72/F Req #: [id number] Adm Physician: Ordered by: TERESA FORD AIRCRAFT ENGINE SPECIALIST Report #: [id number] Location: ER Room/Bed: Procedure: [id number] DX/HUMERUS RIGHT 2+VIEWS Exam Date: 07/09/17 Exam [...] EUGENE on 07/09/17920 COPY TO: TERESA FORD AIRCRAFT ENGINE SPECIALIST CT CHEST WO [place] [address] Patient Name: COLLINS MAHAN MR #: [id number] : 1945 Age/Sex: 72/F Req #: [id number] Adm Physician: Ordered by: LILI ERICKSON MD Report #: [id number] Location: CT Room/Bed: Procedure: [id number] CT/CT CHEST WO Exam Date: 05/22/17 Exam [...]
--- NOTE | 2019-08-12 17:51 | NUR ---
called [facility] for transport.
[2019-08-12] MEDS ORDERED: ACETAMINOPHEN 325 MG TAB PO PRN (19:00)
[2019-08-12] MEDS ORDERED: ONDANSETRON HCL INJ 2MG/ML 2ML 2 MG/ML VIAL IV PRN (19:00)
--- NOTE | 2019-08-12 19:55 | NUR ---
PTS GONZALO FERREIRA [phone], PTS DAUGHTER HAS PERMISSION TO SPEAK AND RECEIVE INFORMATION ON PATIENTS CARE.
[2019-08-12 21:38] VITALS: BP 186/68
--- NOTE | 2019-08-12 21:44 | Diagnostic Imaging Report ---
History: Left-sided facial droop Comparison studies: None Technique: Sagittal and axial T2 FS, axial DWI, axial T2*GRE, axial T1 FLAIR and axial coronal T2 FLAIR. Intravenous contrast: None Findings: Scalp: Normal in signal. No masses. Bone marrow: Normal in signal intensity. Brain sulci: Mildly prominent. Ventricles: Mild compensatory dilatation.. No hydrocephalus. Extra axial spaces: No mass, no fluid collection. Parenchyma: No mass or hemorrhage. Increased magnetic susceptibility related to metallic hardware within the oral cavity results in distortion of the DWI sequence. No abnormal restricted diffusion in the areas of the brain which are not distorted by artifact. A few scattered T2 FLAIR hyperintense foci in the supratentorial white matter are nonspecific but are most compatible with chronic microvascular ischemic changes. Suprasellar region: No abnormalities. Craniocervical junction: Patent foramen magnum. No Chiari malformation. Vessels: Normal flow-voids in the arteries and sinuses. Incidental findings: Right intraocular lens replacement. IMPRESSION: 1. The DWI sequence is limited due to artifact from metallic hardware in the oral cavity; no gross large acute ischemic insult. No other acute intracranial abnormalities. 2. Mild general parenchymal volume loss. 3. Mild microvascular ischemic changes. Signed by: Dr. Tanner Cabrera M.D. on 08/12/2019 9:41 PM
[2019-08-12] MEDS: HYDRALAZINE HCL 20 MG/ML VIAL IV PRN (22:00)
[2019-08-12] MEDS: INSULIN LISPRO 100 UNIT/1 ML 3ML VIAL SQ SCH (22:00)
[2019-08-12] MEDS: SODIUM CHLORIDE 0.9% 1000ML 1,000 ML IV SCH (22:00)
[2019-08-12] MEDS: CEFTRIAXONE SOD 1 GM/NS 50 ML 50 ML IV SCH (22:00)
[2019-08-12] MEDS: OXAZEPAM 15 MG CAP PO SCH (22:03)
[2019-08-12] MEDS: SIMVASTATIN 20 MG TAB PO SCH (22:03)
[2019-08-13] VITALS (9 sets, daily range): BP systolic 145–175; BP diastolic 48–88
[2019-08-13] MEDS: SODIUM CHLORIDE 0.9% 1000ML 1,000 ML IV SCH ×2 (02:00→10:00)
[2019-08-13] MEDS: LEVOTHYROXINE SODIUM 75 MCG TAB PO SCH (05:30)
[2019-08-13] MEDS: HYDRALAZINE HCL 20 MG/ML VIAL IV PRN ×2 (05:32→20:51)
[2019-08-13 05:36] LABS: BASOPHILS % 0.6 % (0.0-1.0); EOSINOPHILS # (AUTO) 0.1 (0.0-0.4); EOSINOPHILS % 1.6 % (0.0-6.0); HEMATOCRIT 39.8 % (34.2-44.1); HEMOGLOBIN 12.8 g/dL (12.0-16.0); LYMPHOCYTES # (AUTO) 2.1 (1.0-3.2); LYMPHOCYTES % 31.1 % (18.0-39.1); MEAN CORPUSCULAR HEMOGLOBIN 30.8 pg (28-32); MEAN CORPUSCULAR HGB CONC 32.2 g/dL (31-35); MEAN CORPUSCULAR VOLUME 95.7 fL (81-99); MONOCYTES # (AUTO) 0.5 (0.2-0.8); MONOCYTES % 7.7 % (4.4-11.3); NEUTROPHILS % 58.6 % (38.7-80.0); PLATELET COUNT 172 x10e3/uL (140-360); RED BLOOD COUNT 4.16 x10e6/uL (3.6-5.1); RED CELL DISTRIBUTION WIDTH 12.6 % (11.7-14.4)
[2019-08-13 05:57] LABS: ALBUMIN 3.1 g/dL (3.5-5.0); ANION GAP 13.8 mmol/L (8-16); CALCIUM 9.1 mg/dL (8.4-10.2); CHOL/HDL RATIO 4.2 (3.0-3.6); CREATININE, SERUM 1.14 mg/dL (0.57-1.11); POTASSIUM 3.8 mmol/L (3.5-5.1)
[2019-08-13 06:17] LABS: THYROID STIMULATING HORMONE 0.994 uIU/mL (0.350-4.940)
--- NOTE | 2019-08-13 07:30 | NUR ---
The pt. is in bed awake and is aware that we need to have one of her non formulary mend brought in from home and she reports that her daughter will bring the med from home.
[2019-08-13] MEDS: TRIHEXYPHENIDYL HCL PO SCH (09:00)
[2019-08-13] MEDS ORDERED: FLUPHENAZINE HCL 2.5 MG TAB PO SCH (09:00)
[2019-08-13] MEDS: METOPROLOL SUCCINATE 50 MG TAB XL PO SCH (09:21)
[2019-08-13] MEDS: FAMOTIDINE 20 MG/2 ML VIAL IV SCH ×2 (09:21→17:21)
[2019-08-13] MEDS: ASPIRIN 81 MG CHEW TAB PO SCH (09:21)
[2019-08-13] MEDS: INSULIN LISPRO 100 UNIT/1 ML 3ML VIAL SQ SCH ×7 (09:21→21:00)
[2019-08-13] MEDS: MELOXICAM 7.5 MG TAB PO SCH (09:21)
[2019-08-13] MEDS: BUPROPION HCL 150 MG TABCR PO SCH (09:22)
[2019-08-13] MEDS ORDERED: TRICOR48 MG PO (10:26)
[2019-08-13] MEDS ORDERED: DEXTROSE 50% SYRINGE 50 ML IV PRN (11:15)
[2019-08-13] MEDS: TRAMADOL HCL 50 MG TAB PO PRN (15:15)
[2019-08-13] MEDS ORDERED: BISACODYL 5 MG TAB EC PO NR (17:00)
[2019-08-13] MEDS: SIMVASTATIN 20 MG TAB PO SCH (20:51)
[2019-08-13] MEDS: CEFTRIAXONE SOD 1 GM/NS 50 ML 50 ML IV SCH (20:51)
[2019-08-13] MEDS: OXAZEPAM 15 MG CAP PO SCH (20:51)
[2019-08-13] MEDS ORDERED: PROAIR HFA INH8.5 GM INH (21:59)
--- NOTE | 2019-08-13 22:25 | NUR ---
spoke to Isi SOTELO of Dr. Casillas at this time regarding patients home meds. New orders received. See EMR for list of orders.
[2019-08-13] MEDS ORDERED: ALBUTEROL SULFATE HFA 8GM INHALATION AEROSOL INH PRN (22:30)
[2019-08-13] MEDS ORDERED: OXAZEPAM 10 MG CAP PO PRN (22:30)
[2019-08-13] MEDS ORDERED: OXAZEPAM15 MG PO (22:38)
[2019-08-13] MEDS ORDERED: OXAZEPAM 15 MG CAP PO PRN (22:55)
[2019-08-14] VITALS: BP 174/66
[2019-08-14] MEDS: HYDRALAZINE HCL 20 MG/ML VIAL IV PRN (01:05)
[2019-08-14] MEDS: TRAMADOL HCL 50 MG TAB PO PRN (02:21)
[2019-08-14 04:00] VITALS: BP 160/64
[2019-08-14] MEDS: LEVOTHYROXINE SODIUM 75 MCG TAB PO SCH (05:46)
[2019-08-14 07:01] LABS: BASOPHILS % 0.3 % (0.0-1.0); EOSINOPHILS % 0.3 % (0.0-6.0); HEMATOCRIT 42.3 % (34.2-44.1); HEMOGLOBIN 13.6 g/dL (12.0-16.0); LYMPHOCYTES # (AUTO) 1.3 (1.0-3.2); LYMPHOCYTES % 11.3 % (18.0-39.1); MEAN CORPUSCULAR HGB CONC 32.2 g/dL (31-35); MEAN CORPUSCULAR VOLUME 93.4 fL (81-99); MONOCYTES # (AUTO) 0.6 (0.2-0.8); MONOCYTES % 5.3 % (4.4-11.3); NEUTROPHILS # (AUTO) 9.6 (2.1-6.9); NEUTROPHILS % 82.4 % (38.7-80.0); PLATELET COUNT 216 x10e3/uL (140-360); RED BLOOD COUNT 4.53 x10e6/uL (3.6-5.1); RED CELL DISTRIBUTION WIDTH 13.1 % (11.7-14.4)
[2019-08-14 07:25] LABS: ALBUMIN 3.6 g/dL (3.5-5.0); ALBUMIN/GLOBULIN RATIO 1.1 (0.8-2.0); ANION GAP 16.2 mmol/L (8-16); CALCIUM 9.5 mg/dL (8.4-10.2); CREATININE, SERUM 1.11 mg/dL (0.57-1.11); MAGNESIUM 1.6 MG/DL (1.3-2.1); POTASSIUM 4.2 mmol/L (3.5-5.1)
[2019-08-14] MEDS: INSULIN LISPRO 100 UNIT/1 ML 3ML VIAL SQ SCH ×4 (07:30→11:30)
--- NOTE | 2019-08-14 07:30 | NUR ---
Received bedside shift report from off going nurse. Patient in stable condition, no s/s of distress noted. Telemetry applied. Bed in lowest position and locked. Call light within reach.
[2019-08-14 07:38] VITALS: BP 127/62
[2019-08-14 08:00] VITALS: BP 127/62
--- NOTE | 2019-08-14 08:04 | NUR ---
Met with pt to discuss dc plan, home with home health SN and PT. She agreed w/ plan and chose [facility]. She signed choice letter. Copy to her and original placed in chart. Clinical sent to [facility]: [phone]
[2019-08-14] MEDS: TRIHEXYPHENIDYL HCL PO SCH (08:18)
[2019-08-14] MEDS: FAMOTIDINE 20 MG/2 ML VIAL IV SCH (08:18)
[2019-08-14] MEDS: MELOXICAM 7.5 MG TAB PO SCH (08:19)
[2019-08-14] MEDS: ASPIRIN 81 MG CHEW TAB PO SCH (08:19)
[2019-08-14] MEDS: METOPROLOL SUCCINATE 50 MG TAB XL PO SCH (08:20)
[2019-08-14] MEDS: BUPROPION HCL 150 MG TABCR PO SCH (08:21)
[2019-08-14] MEDS ORDERED: FLUPHENAZINE HCL 2.5 MG TAB PO SCH (09:00)
[2019-08-14] MEDS ORDERED: FENOFIBRATE 145 MG TAB PO SCH (09:00)
--- NOTE | 2019-08-14 11:56 | NUR ---
Patient discharged home home health paper given with the phone number- Patient off the unit @ [phone] via wheelchair accompanied by RN to the lobby. Patient in stable condition, no s/s of distress noted. No pain voiced. IV access removed with tip intact. Telemetry removed. All personal items taken with the patient. Discharge teaching and instructions given to the patient and family. Patient and family verbalized understand.
--- NOTE | 2019-08-14 20:30 | Discharge Summary ---
ADMISSSION DIAGNOSES: 1. Right facial drooping with drooling out of her mouth. 2. Hypertension. 3. Hyperlipidemia. 4. Hypothyroidism. 5. Schizophrenia. 6. Bipolar. 7. Obesity with a BMI of 36.6. 8. Type 2 diabetes. DISCHARGE DIAGNOSES: 1. Right facial drooping with drooling out of her mouth. 2. Hypertension. 3. Hyperlipidemia. 4. Hypothyroidism. 5. Schizophrenia. 6. Bipolar. 7. Obesity with a BMI of 36.6. 8. Type 2 diabetes. 9. Rule out cerebrovascular accident. HISTORY: Hypertension, type 2 diabetes, hypothyroidism, thyroid cancer, schizophrenia, bipolar, hyperlipidemia, and chronic back pain. SURGICAL HISTORY: Thyroidectomy, cholecystectomy, tonsillectomy, adenoidectomy, and back surgery. FAMILY HISTORY: The patient's mom has diabetes. SOCIAL HISTORY: Noncontributory. HOSPITAL COURSE: A 74-year-old female, admits with complaints of drooling from the right side of her mouth for 2 days. She denies focal weakness, dysphagia, vision changes, and facial drooping. She said the symptoms resolved right after admission. On admission, CT of the brain and MRI of the brain were ordered and both were negative. Chest x-ray was negative. Lipid panel showed elevated triglycerides. TSH was within normal limits. Echo was 60-65% EF. PT saw the patient and recommended home health. Carotid Doppler showed no significant stenosis. She will be discharged home with new prescription for TriCor. The patient will follow up with primary care in 1 to 2 weeks. The patient understands discharge instructions and agrees to plan. Vital signs are stable. The patient is afebrile. Dictated by Urmila Duke NP Onel Casillas MD YULI/MODL /[id number]
--- NOTE | 2019-08-16 13:53 | NUR ---
[facility] CALLED AND STATES THEY HAVE CALLED PT AND DAUGHTER SEVERAL TIMES AND ARE UNABLE TO REACH THEM TO SET UP SERVICES.
== END 2019-08-14 11:25 | disposition home or self-care (01) ==
LOC: FSED 15:30 → ERHOLD 17:30 → MED/SURG2 21:02
PROVIDERS: ADMIT Internal Medicine; ATTEND Internal Medicine
DX: R29.810 Facial weakness (principal); I10 Essential (primary) hypertension; E78.5 Hyperlipidemia, unspecified; F20.9 Schizophrenia, unspecified; F31.9 Bipolar disorder, unspecified; E11.9 Type 2 diabetes mellitus without complications; E66.9 Obesity, unspecified; Z68.36 Body mass index [BMI] 36.0-36.9, adult; Z85.850 Personal history of malignant neoplasm of thyroid; G89.29 Other chronic pain
CPT/HCPCS: 36415 ×3; 70450; 70551; 71046; 80048; 80053 ×3; 80061; 80076; 81003; 82553; 82607; 82948 ×3; 83036; 83605; 83735; 84443; 84484; 85025 ×3; 87040; 87086; 87635; 92526; 92610; 93005; 93306; 93880; 96372; 97116; 97161; 97530; 99284; G0378 ×3; J0360 ×3; J0696 ×2; J2405; J7030

== ENCOUNTER 2019-09-02 17:00 | Observation (INO) | payer MEDICARE, OTHER ==
[~2019-09-02] VITALS: Ht 165.1 cm; Wt 96.6 kg
[~2019-09-02 17:00] MED LIST changes: +PROAIR HFA INH8.5 GM INH; +TRICOR48 MG PO
[2019-09-02] MEDS ORDERED: NITROGLYCERIN 2% OINT 1 GM PKT TOP ONE (17:45)
[2019-09-02] MEDS ORDERED: ASPIRIN 81 MG CHEW TAB PO ONE (17:45)
--- NOTE | 2019-09-02 17:51 | Emergency Department Note ---
History of Present Illnes History of Present Illness Chief Complaint: CP History of Present Illness This is a 74 year old female . Historian: Patient Arrival Mode: Car History limited by: condition of the patient (NORMAL) Tape Rules Printing Machine Operator Required: No Onset (how long ago): hour(s) (1.5) Location: SUBSTERNAL Quality: sharp Radiation: Reports non-radiation Severity: moderate Onset quality: gradual Duration (how long): hour(s) (1.5) Timing of current episode: constant Progression: improving (ic=4) Chronicity: new Context: Denies recent illness, Denies recent surgery, Denies recent immobilization, Denies recent travel, Denies trauma/injury, Denies new medications, Denies hx of DVT/PE, Denies non-compliance w/ medications Relieving factors: rest Exacerbating factors: movement Associated symptoms: Reports denies other symptoms Treatments prior to arrival: none Past Medical/Family History Physician Review I have reviewed the patient's past medical and family history. Any updates have been documented here. Past Medical History Recent Fever: No Clinical Suspicion of Infectio: No New/Unexplained Change in Ment: No Past Medical History: Hypertension, Diabetes, Hypothyroidism, Cancer, Depression, Other Mental Illness, Hyperlipedemia, Chronic Back Pain Other Medical History: BIPOLAR THYROID CANCER SCHIZOPHRENIA Past Surgical History: Cholecysctectomy, T&A, Back Surgery Other Surgery: THYROIDECTOMY LEFT OVARY REMOVED Social History Smoking Cessation: Never Smoker Alcohol Use: Social Any Illegal Drug Use: No TB Exposure/Symptoms: No Physically hurt or threatened: No Other Last Tetanus: OOD Any Pre-Existing Lines (PICC,: No Is patient up to date on immun: No Review of Systems Review of Systems Constitutional: Reports no symptoms EENTM: Reports no symptoms Cardiovascular: Reports as per HPI, Reports chest pain Respiratory: Reports no symptoms Gastrointestinal: Reports no symptoms Genitourinary: Reports no symptoms Musculoskeletal: Reports no symptoms Integumentary: Reports no symptoms Neurological: Reports no symptoms Psychological: Reports no symptoms Endocrine: Reports no symptoms Hematological/Lymphatic: Reports no symptoms Review of other systems: All other systems negative Physical Exam Related Data Allergies: Coded Allergies: codeine (Verified Allergy, Unknown, 07/09/17) Vital signs reviewed: Yes Physical Exam CONSTITUTIONAL Constitutional: Present well-developed, Present well-nourished HENT HENT: Present normocephalic, Present atraumatic, Present oropharynx clear/moist, Present nose normal HENT L/R: Present left ext ear normal, Present right ext ear normal EYES Eyes: Reports PERRL, Reports conjunctivae normal NECK Neck: Present ROM normal, Present supple PULMONARY Pulmonary: Present effort normal, Present breath sounds normal CARDIOVASCULAR Cardiovascular: Present regular rhythm, Present heart sounds normal, Present capillary refill normal, Present normal rate GASTROINTESTINAL Abdominal: Present soft, Present nontender, Present bowel sounds normal GENITOURINARY Genitourinary: Present exam deferred SKIN Skin: Present warm, Present dry MUSCULOSKELETAL Musculoskeletal: Present ROM normal NEUROLOGICAL Neurological: Present alert, Present oriented x 3, Present no gross motor or sensory deficits PSYCHOLOGICAL Psychological: Present mood/affect normal, Present judgement normal Results Laboratory Lab results reviewed: Yes (cbc/cmp/coags/cardiac enzymes all normal) Imaging Imaging results reviewed: Yes Impressions [place] [address] Patient Name: COLLINS MAHAN MR #: [id number] : 1945 Age/Sex: 74/F Req #: [id number] Adm Physician: Ordered by: MONAE EWING Report #: [id number] Location: [facility] Room/Bed: Procedure: [id number] HOPD/CXR 1 VEW - HOPD Exam Date: 09/02/19 Exam Time: 1758 REPORT STATUS: Signed Examination: Single AP view of the chest. COMPARISON: Chest 2 views 08/12/2019 INDICATION: Chest pain IMPRESSION: 1. Lines and Tubes: None 2. Lungs are grossly clear. No consolidation or effusion. 3. Stable borderline size of the cardiac silhouette. Pulmonary vasculature is normal. Atherosclerotic calcification of the aortic arch. 4. No acute bony abnormalities. Signed by: Dr. Domonique Ryan M.D. on 09/02/2019 6:37 PM Dictated By: DOMONIQUE RYAN MD 36 Transcribed By: ELIER on 09/02/191836 COPY TO: MONAE EWING~ Procedures 12 Lead ECG Interpretation ECG Interpretation : ECG: ECG 1 Tape Rules Printing Machine Operator: Interpreted by ED physician Date: Sep 02, 2019 Time: 17:07 Prior ECG tracings: reviewed Rhythm: A-V block (1st) Ectopy: PVC's QRS axis: normal ST segments normal: Yes T wave inversion: I, aVL Clinical Impression: abnormal ECG Assessment & Plan Medical Decision Making MDM admit to hosp Reassessment Reassessment pt has NO CP S/P ASPIRIN AND NITRO. SPOKE TO DR IRELAND AT 2000HRS AND ACCEPTS TRANSFER OF PT Assessment & Plan Final Impression: (1) Acute chest pain (2) Chest pain, rule out acute myocardial infarction (3) Abnormal EKG Home Meds Active Scripts Fenofibrate (TRICOR) 48 Mg Tab, 48 MG PO DAILY, #30 TAB Prov:JONO PRUITT THEATRE DIRECTOR 08/13/19 Tramadol Hcl (ULTRAM) 50 Mg Tablet, 1 TAB PO Q6H PRN for PAIN, #20 TAB 0 Refills Prov:PARVEZ TRUJILLO MD 04/23/18 Reported Medications Oxazepam (OXAZEPAM) 15 Mg Cap, 15 MG PO TID PRN for ANXIETY, CAP 08/13/19 Albuterol Sulf* (PROAIR HFA INHALER*) 8.5 Gm Inh, 2 INH INH Q6H PRN for SHORTNESS OF BREATH 2 PUFFS 08/13/19 Metformin Hcl (METFORMIN HCL) 850 Mg Tablet, 1000 MG PO BID, #30 TAB 05/18/19 Metoprolol Succinate (METOPROLOL SUCCINATE) 50 Mg Tab.er.24h, 50 MG PO DAILY, MG 05/18/19 Rosuvastatin Calcium (CRESTOR) 10 Mg Tab, 5 MG PO HS THERAPEUTICALLY SUBSTITUTED WITH SIMVASTATIN 40MG 05/18/19 Aspirin (ASPIRIN CHEW) 81 Mg Chew, 81 MG PO DAILY, #30 TAB 04/23/18 Meloxicam (MELOXICAM) 7.5 Mg Tablet, 7.5 MG PO DAILY, #30 TAB 04/23/18 Levothyroxine Sodium (LEVOTHYROXINE SODIUM) 75 Mcg Tablet, 150 MCG PO DAILY, #30 TAB 04/23/18 Trihexyphenidyl Hcl (TRIHEXYPHENIDYL HCL) 5 Mg Tablet, 1 TAB PO DAILY 04/23/18 Bupropion Hcl (BUPROPION XL) 150 Mg Tab.er.24h, 300 MG PO DAILY 04/23/18 Fluphenazine Hcl (FLUPHENAZINE HCL) 2.5 Mg Tab, 5 MG PO DAILY 04/23/18 Oxazepam (OXAZEPAM) 15 Mg Cap, 1 CAP PO HS 04/23/18 Medications in the ED Aspirin 324 mg ONCE ONCE PO ; Start 09/02/19 at 17:45; Stop 09/02/19 at 17:46; Status UNV Nitroglycerin 1 gm ONCE ONCE TOP ; Start 09/02/19 at 17:45; Stop 09/02/19 at 17:46 MONAE EWING Sep 02, 2019 17:50
--- NOTE | 2019-09-02 18:40 | Diagnostic Imaging Report ---
Examination: Single AP view of the chest. COMPARISON: Chest 2 views 08/12/2019 INDICATION: Chest pain IMPRESSION: 1. Lines and Tubes: None 2. Lungs are grossly clear. No consolidation or effusion. 3. Stable borderline size of the cardiac silhouette. Pulmonary vasculature is normal. Atherosclerotic calcification of the aortic arch. 4. No acute bony abnormalities. Signed by: Dr. Jose Ryan M.D. on 09/02/2019 6:37 PM
[2019-09-02] MEDS ORDERED: ASPIRIN 81 MG CHEW TAB ONE (18:44)
[2019-09-02] MEDS ORDERED: NITROGLYCERIN 2% OINT 1 GM PKT ONE (18:44)
[2019-09-02] MEDS: METOPROLOL TARTRATE 25 MG TAB PO SCH (20:30)
[2019-09-02] MEDS: FAMOTIDINE 20 MG TAB PO SCH (20:30)
[2019-09-02] MEDS ORDERED: ACETAMINOPHEN 325 MG TAB PO PRN ×2 (20:45→23:00)
--- NOTE | 2019-09-02 20:48 | NUR ---
GALEN IN TO OBTAIN COVID SWAB, DRESSED IN PPE
--- NOTE | 2019-09-02 21:30 | NUR ---
REPORT TO NIK ELY FOR ROOM 297
[2019-09-02] MEDS ORDERED: BASAGLAR K100 UNIT/1 SC (21:37)
[2019-09-02] MEDS ORDERED: ACETAMINOPHEN 325 MG TAB ONE (21:51)
[2019-09-02] MEDS ORDERED: ENOXAPARIN SODIUM INJ 100 MG/ML SYR SC STA (22:27)
[2019-09-02] MEDS ORDERED: NITROGLYCERIN 0.4 MG SUBL SL ONE (22:30)
--- NOTE | 2019-09-02 22:35 | NUR ---
MEDICATED WITH NTG SL X1 ANBD LOVENOX WHEN PT HAD SUDDEN ONSET CP WHILE SITTING AT BEDSIDE. REPLACED IN BED AND BACK ON MONITOR. PT HAD REMOVED HERSELF FROM MONITOR WHEN SHE WENT TO RESTROOM.
--- NOTE | 2019-09-02 22:36 | NUR ---
MD IS AWARE OF EPISODE OF CP
--- NOTE | 2019-09-02 22:40 | NUR ---
CALLED [facility] DUE TO LATE ARRIVAL OF TRANSPORT. THEY ARE IN ROUTE AT THIS TIME. PT AND DAUGHTER INFORMED.
--- NOTE | 2019-09-02 22:44 | NUR ---
PAIN FREE AT THIS TIME
[2019-09-02] MEDS ORDERED: ENALAPRILAT DIHYDRATE 1.25 MG/ML 2ML VIAL IV PRN (23:00)
[2019-09-02] MEDS ORDERED: OXAZEPAM 15 MG CAP PO PRN (23:00)
[2019-09-02] MEDS ORDERED: ONDANSETRON HCL INJ 2MG/ML 2ML 2 MG/ML VIAL IV PRN (23:00)
[2019-09-02] MEDS ORDERED: HYDRALAZINE HCL 20 MG/ML VIAL IV PRN (23:00)
[2019-09-02] MEDS ORDERED: ALBUTEROL SULFATE HFA 8GM INHALATION AEROSOL INH PRN (23:00)
[2019-09-02] MEDS ORDERED: OXAZEPAM 15 MG CAP PO SCH (23:00)
[2019-09-02] MEDS ORDERED: TRAMADOL HCL 50 MG TAB PO PRN (23:00)
[2019-09-02] MEDS: METOPROLOL SUCCINATE 50 MG TAB XL PO SCH (23:00)
--- NOTE | 2019-09-02 23:24 | NUR ---
[facility] ARRIVED. REPORT GIVEN
[2019-09-03] VITALS (8 sets, daily range): BP systolic 141–179; BP diastolic 66–77
[2019-09-03] MEDS: NITROGLYCERIN 2% OINT 1 GM PKT TOP SCH ×3 (00:40→12:00)
[2019-09-03 02:03] LABS: CREATINE KINASE 36 IU/L (29-168)
[2019-09-03] MEDS ORDERED: LEVOTHYROXINE SODIUM 75 MCG TAB PO SCH (06:00)
[2019-09-03 06:30] LABS: CREATINE KINASE 33 IU/L (29-168)
[2019-09-03] MEDS ORDERED: FENOFIBRATE 48 MG TAB PO SCH (09:00)
[2019-09-03] MEDS ORDERED: BUPROPION HCL 150 MG TABCR PO SCH (09:00)
[2019-09-03] MEDS ORDERED: ASPIRIN 81 MG CHEW TAB PO SCH (09:00)
[2019-09-03] MEDS ORDERED: FLUPHENAZINE HCL 2.5 MG TAB PO SCH (09:00)
[2019-09-03] MEDS: METOPROLOL TARTRATE 25 MG TAB PO SCH (09:16)
[2019-09-03] MEDS: FAMOTIDINE 20 MG TAB PO SCH (09:16)
[2019-09-03] MEDS: METOPROLOL SUCCINATE 50 MG TAB XL PO SCH (09:16)
--- NOTE | 2019-09-03 11:28 | History and Physical ---
CHIEF COMPLAINT: Chest pain. HISTORY OF PRESENT ILLNESS: The patient is a 74-year-old female, who was just recently discharged from the hospital here at [facility]. At that time, she was admitted from , with right side facial droop with drooling out of her mouth. Apparently, the MRI of the brain at that time was negative. The patient's echocardiogram was with 60% ejection fraction. Carotid Doppler showed no significant stenosis. The patient now came back into the hospital with chest pain. The patient with multiple problems including baseline BMI of 36.6. She has history of schizophrenia, bipolar disorder. The chest pain is atypical. Per the patient, she had a cardiac catheterization with Dr. Broussard previously and which shows some blockage, but there was no intervention. The patient's cardiac enzyme has been negative x2 sets. PAST MEDICAL HISTORY: Hypothyroidism, dyslipidemia, hypertension, schizophrenia, bipolar disorder, moderate obesity, diabetes type 2, chronic lower back pain, history of thyroid cancer with thyroidectomy, and hypothyroidism. PAST SURGICAL HISTORY: Thyroidectomy, cholecystectomy, tonsillectomy, adenoidectomy, and lower back surgery. SOCIAL HISTORY: The patient does not smoke or use alcohol. No regular drug. ALLERGIES: CODEINE. HOME MEDICATIONS: The patient is on: 1. Albuterol. 2. Aspirin. 3. Bupropion. 4. Fenofibrate. 5. Fluphenazine. 6. Lantus insulin. 7. Levothyroxine. 8. Meloxicam. 9. Metformin. 10. Metoprolol. 11. Oxazepam. 12. Crestor. 13. Tramadol. 14. Trihexyphenidyl. PHYSICAL EXAMINATION: VITAL SIGNS: Temperature is 98, blood pressure 149/56, pulse rate 77, respirations 18. GENERAL: The patient is not in acute distress. She is awake. HEENT: Normocephalic and atraumatic. Anicteric. NECK: Supple grossly. PULMONARY: Clear. CARDIOVASCULAR: Regular rhythm. ABDOMEN: Soft and unremarkable. Moderately obese. EXTREMITIES: No cyanosis or edema. NEUROLOGIC: No focal deficit. LABORATORY DATA: Cardiac enzymes were negative x2 sets. Triglycerides 347, total cholesterol is 198. Chest x-ray is unremarkable. IMPRESSION: 1. Atypical chest pain associated with previous cardiac catheterization and per patient, there was significant blockage, but not enough for PCI. 2. Multiple chronic baseline problems including dyslipidemia, hypertension, diabetes type 2, schizophrenia, bipolar disorder, major depression. PLAN: Continue with home medication. Consultation with Dr. Sreekanth Broussard. The patient already had an echo recently. Continue with home medication. 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 Sreekanth Broussard's recommendation. MD KALE Kingston/MIKAELA /[id number]
[2019-09-03 12:47] LABS: CREATINE KINASE 33 IU/L (29-168)
[2019-09-03 14:59] LABS: CHOL/HDL RATIO 5.7 (3.0-3.6)
--- NOTE | 2019-09-03 15:30 | NUR ---
Assisted patient to use restroom, she ambulate with walker steady gait. Dr Kacy Ontiveros here for rounds
--- NOTE | 2019-09-03 16:56 | NUR ---
patient discharged home, Dr Kacy Ontiveros had rounds and cleared patient to go Home and f/up Dr Broussard outpatient for Stress test, discharge order recvd from Dr Adrian, IV canula removed with tip intact, no ss of infiltration noted, daughter at bed side taking patient home. transported via wheelchair to [facility]. Patient denies any pain, no distress noted
[2019-09-03] MEDS ORDERED: INSULIN GLARGINE 100 UNITS/ML VIAL SQ SCH (21:00)
[2019-09-03] MEDS ORDERED: SIMVASTATIN 20 MG TAB PO SCH (21:00)
== END 2019-09-03 17:15 | disposition home or self-care (01) ==
LOC: FSED 17:00 → ERHOLD 20:23 → MED/SURG3 21:58
PROVIDERS: ADMIT Internal Medicine; ATTEND Internal Medicine
DX: E78.5 Hyperlipidemia, unspecified (principal); I10 Essential (primary) hypertension; F31.9 Bipolar disorder, unspecified; F20.9 Schizophrenia, unspecified; E66.01 Morbid (severe) obesity due to excess calories; Z68.35 Body mass index [BMI] 35.0-35.9, adult; Z90.49 Acquired absence of other specified parts of digestive tract; Z11.59 Encounter for screening for other viral diseases
CPT/HCPCS: 36415; 71045; 80053; 80061; 81003; 82550; 82553 ×2; 82948; 84484 ×2; 85025; 87635; 93005; 93306; 99284; G0378 ×2; J1650; J1815; J2405

== ENCOUNTER 2020-08-28 20:23 | Emergency (ER) | payer MEDICARE ==
[~2020-08-28] VITALS: Ht 165.1 cm; Wt 96.6 kg
[~2020-08-28 20:23] MED LIST changes: +BASAGLAR K100 UNIT/1 SC
[2020-08-28 21:00] LABS: BASOPHILS # (AUTO) 0.1 (0.0-0.1); BASOPHILS % 0.6 % (0.0-1.0); EOSINOPHILS # (AUTO) 0.1 (0.0-0.4); EOSINOPHILS % 1.4 % (0.0-6.0); HEMATOCRIT 40.4 % (34.2-44.1); HEMOGLOBIN 12.8 g/dL (12.0-16.0); LYMPHOCYTES # (AUTO) 1.9 (1.0-3.2); LYMPHOCYTES % 22.7 % (18.0-39.1); MEAN CORPUSCULAR HEMOGLOBIN 29.8 pg (28-32); MEAN CORPUSCULAR HGB CONC 31.7 g/dL (31-35); MONOCYTES # (AUTO) 0.6 (0.2-0.8); MONOCYTES % 7.5 % (4.4-11.3); NEUTROPHILS # (AUTO) 5.8 (2.1-6.9); NEUTROPHILS % 67.6 % (38.7-80.0); PLATELET COUNT 208 x10e3/uL (140-360)
[2020-08-28] MEDS ORDERED: FUROSEMIDE INJ 10 MG/ML 4 ML VIAL IV ONE (21:15)
[2020-08-28 21:17] LABS: ALBUMIN 3.8 g/dL (3.5-5.0); ALBUMIN/GLOBULIN RATIO 1.1 (0.8-2.0); ANION GAP 19.7 mmol/L (8-16); CALCIUM 8.8 mg/dL (8.4-10.2); CREATININE, SERUM 1.42 mg/dL (0.57-1.11); POTASSIUM 4.7 mmol/L (3.5-5.1)
[2020-08-28 21:23] LABS: CREATINE KINASE MB 0.9 ng/mL (0-5.0)
[2020-08-28] MEDS ORDERED: SODIUM CHLORIDE 0.9% 50ML 50 ML ONE (21:33)
[2020-08-28] MEDS ORDERED: IOPAMIDOL 370 MG/ML 200 ML INFUS..BTL INJ ONE (21:33)
[2020-08-28] MEDS ORDERED: ONDANSETRON HCL INJ 2MG/ML 2ML 2 MG/ML VIAL ONE (23:40)
== END 2020-08-29 01:30 | disposition home or self-care (01) ==
LOC: ER 20:50
DX: R06.00 Dyspnea, unspecified (principal); Z95.5 Presence of coronary angioplasty implant and graft; E11.65 Type 2 diabetes mellitus with hyperglycemia; I10 Essential (primary) hypertension; E78.5 Hyperlipidemia, unspecified; E03.9 Hypothyroidism, unspecified; I25.10 Atherosclerotic heart disease of native coronary artery without angina pectoris; F31.9 Bipolar disorder, unspecified; Z85.850 Personal history of malignant neoplasm of thyroid
CPT/HCPCS: 36415; 71260; 80053; 82550; 82553; 83880; 84484; 85025; 93005; 99284; J2405; Q9967

== ENCOUNTER 2020-11-27 20:35 | Emergency (ER) | payer MEDICARE ==
[~2020-11-27] VITALS: Ht 165.1 cm; Wt 93.9 kg
[2020-11-27] MEDS ORDERED: IBUPROFEN IB200 MG PO (21:13)
[2020-11-27] MEDS ORDERED: ULTRAM 50MG50 MG PO (21:13)
[2020-11-27] MEDS ORDERED: ACETAMINOPHEN500 MG PO (21:13)
[2020-11-27] MEDS ORDERED: TRAMADOL HCL 50 MG TAB PO ONE (22:00)
== END 2020-11-27 22:08 | disposition home or self-care (01) ==
LOC: FSED 20:45
DX: S43.402A Unspecified sprain of left shoulder joint, initial encounter (principal); W19.XXXA Unspecified fall, initial encounter; Z88.5 Allergy status to narcotic agent
CPT/HCPCS: 99283

== ENCOUNTER 2021-04-24 09:22 | Inpatient (IN) | payer MEDICARE ==
[2021-04-24] VITALS (7 sets, daily range): BP systolic 139–206; BP diastolic 58–84
[~2021-04-24] VITALS: Ht 165.1 cm; Wt 93.9 kg
[~2021-04-24 09:22] MED LIST changes: +ACETAMINOPHEN500 MG PO; +IBUPROFEN IB200 MG PO; +ULTRAM 50MG50 MG PO
[2021-04-24 09:50] LABS: BASOPHILS % 0.5 % (0.0-1.0); EOSINOPHILS # (AUTO) 0.1 (0.0-0.4); EOSINOPHILS % 1.1 % (0.0-6.0); HEMATOCRIT 38.7 % (34.2-44.1); HEMOGLOBIN 12.1 g/dL (12.0-16.0); LYMPHOCYTES # (AUTO) 0.7 (1.0-3.2); LYMPHOCYTES % 11.8 % (18.0-39.1); MEAN CORPUSCULAR HEMOGLOBIN 31.3 pg (28-32); MEAN CORPUSCULAR HGB CONC 31.3 g/dL (31-35); MEAN CORPUSCULAR VOLUME 100.3 fL (81-99); MONOCYTES # (AUTO) 0.4 (0.2-0.8); NEUTROPHILS % 80.3 % (38.7-80.0); PLATELET COUNT 193 x10e3/uL (140-360); RED BLOOD COUNT 3.86 x10e6/uL (3.6-5.1); RED CELL DISTRIBUTION WIDTH 12.2 % (11.7-14.4)
[2021-04-24] MEDS ORDERED: SODIUM CHLORIDE 0.9% 1000ML 1,000 ML IV STA (10:08)
[2021-04-24 10:11] LABS: CLARITY,URINE CLEAR (CLEAR); COLOR,URINE YELLOW (YELLOW)
[2021-04-24 10:12] LABS: LEUKOCYTE ESTERASE ,URINE SMALL (NEGATIVE); NITRITE,URINE POSITIVE (NEGATIVE)
[2021-04-24 10:13] LABS: KETONES,URINE NEGATIVE (NEGATIVE); PROTEIN,URINE DIPSTICK NEGATIVE (NEGATIVE); URINE UROBILINOGEN 0.2 mg/dL (0.2 - 1)
[2021-04-24 10:24] LABS: ALBUMIN 3.5 g/dL (3.5-5.0); ANION GAP 14.2 mmol/L (8-16); CALCIUM 9.3 mg/dL (8.4-10.2); CREATININE, SERUM 1.35 mg/dL (0.57-1.11); POTASSIUM 4.2 mmol/L (3.5-5.1)
[2021-04-24 10:29] LABS: BACTERIA,URINE MANY /HPF; EPITHELIAL CELLS,URINE FEW /LPF; RBC,URINE 0-5 /HPF (0-5); WBC,URINE (MAN) 21-50 /HPF (0-5)
[2021-04-24 10:32] LABS: CREATINE KINASE MB 0.6 ng/mL (0-5.0)
[2021-04-24] MEDS ORDERED: PIPERACILLIN/TAZOBACTAM 2.25 GM in SODIUM CHLORIDE 0.9% 50ML 50 ML IV ONE (10:45)
[2021-04-24] MEDS ORDERED: ACETAMINOPHEN 325 MG TAB PO ONE (10:45)
[2021-04-24] MEDS ORDERED: DEXTROSE 50% SYRINGE 50 ML IV PRN ×2 (11:15→11:45)
[2021-04-24] MEDS ORDERED: GLIMEPIRIDE2 MG PO (11:20)
[2021-04-24] MEDS ORDERED: NEURONTIN300 MG PO (11:20)
[2021-04-24] MEDS ORDERED: ZUPLENZ4 MG PO (11:20)
[2021-04-24] MEDS ORDERED: RANEXA500 MG PO (11:20)
[2021-04-24] MEDS ORDERED: METHOCARBAMOL750 MG PO (11:20)
[2021-04-24] MEDS ORDERED: NAMENDA5 MG PO (11:20)
[2021-04-24] MEDS ORDERED: CLOPIDOGREL75 MG PO (11:20)
[2021-04-24] MEDS ORDERED: ONDANSETRON HCL INJ 2MG/ML 2ML 2 MG/ML VIAL IV PRN (11:45)
[2021-04-24] MEDS ORDERED: DOCUSATE SODIUM 100 MG CAP PO PRN (11:45)
[2021-04-24] MEDS ORDERED: ALBUTEROL/IPRATROPIUM 3 ML NEB NEB PRN (11:45)
[2021-04-24] MEDS ORDERED: PHENAZOPYRIDINE HCL 100 MG TAB PO PRN (11:45)
[2021-04-24] MEDS ORDERED: POTASSIUM CHLORIDE 20 MEQ TAB CR PO PRN (11:45)
[2021-04-24] MEDS ORDERED: DIPHENHYDRAMINE HCL 25 MG CAP PO PRN (11:45)
[2021-04-24] MEDS ORDERED: SIMETHICONE 80 MG CHEW PO PRN (11:45)
[2021-04-24] MEDS ORDERED: BENZONATATE 100 MG CAP PO PRN (11:45)
[2021-04-24] MEDS: INSULIN LISPRO 100 UNIT/1 ML 3ML VIAL SQ SCH ×3 (13:09→21:30)
[2021-04-24] MEDS: SODIUM CHLORIDE 0.9% 1000ML 1,000 ML IV SCH (13:09)
[2021-04-24] MEDS: MEROPENEM 500 MG in SODIUM CHLORIDE 0.9% 50ML 50 ML IV SCH ×2 (13:10→21:24)
[2021-04-24] MEDS: ENOXAPARIN SOD INJ 40 MG/0.4 ML SYR SC SCH (16:09)
[2021-04-24] MEDS ORDERED: PIPERACILLIN/TAZOBACTAM 2.25 GM in SODIUM CHLORIDE 0.9% 50ML 50 ML IV SCH (16:15)
[2021-04-24] MEDS ORDERED: MELATONIN 5 MG TABLET PO PRN (21:00)
[2021-04-24] MEDS: TRAMADOL HCL 50 MG TAB PO PRN (21:28)
[2021-04-24] MEDS: HYDRALAZINE HCL 20 MG/ML VIAL IV PRN (23:47)
[2021-04-24] MEDS: ACETAMINOPHEN 325 MG TAB PO PRN (23:52)
[2021-04-25] VITALS (7 sets, daily range): BP systolic 129–177; BP diastolic 50–71
[2021-04-25 05:01] LABS: BASOPHILS % 0.9 % (0.0-1.0); EOSINOPHILS % 0.9 % (0.0-6.0); HEMATOCRIT 36.6 % (34.2-44.1); HEMOGLOBIN 11.4 g/dL (12.0-16.0); LYMPHOCYTES # (AUTO) 1.1 (1.0-3.2); LYMPHOCYTES % 25.8 % (18.0-39.1); MEAN CORPUSCULAR HEMOGLOBIN 31.5 pg (28-32); MEAN CORPUSCULAR HGB CONC 31.1 g/dL (31-35); MEAN CORPUSCULAR VOLUME 101.1 fL (81-99); MONOCYTES # (AUTO) 0.4 (0.2-0.8); MONOCYTES % 9.8 % (4.4-11.3); NEUTROPHILS # (AUTO) 2.7 (2.1-6.9); NEUTROPHILS % 62.1 % (38.7-80.0); PLATELET COUNT 156 x10e3/uL (140-360); RED BLOOD COUNT 3.62 x10e6/uL (3.6-5.1); RED CELL DISTRIBUTION WIDTH 12.3 % (11.7-14.4)
[2021-04-25 05:18] LABS: ALBUMIN 3.1 g/dL (3.5-5.0); ANION GAP 13.6 mmol/L (8-16); CALCIUM 8.9 mg/dL (8.4-10.2); CREATININE, SERUM 1.12 mg/dL (0.57-1.11); POTASSIUM 3.6 mmol/L (3.5-5.1)
[2021-04-25] MEDS: SODIUM CHLORIDE 0.9% 1000ML 1,000 ML IV SCH (05:42)
[2021-04-25] MEDS ORDERED: FLUPHENAZINE HCL 2.5 MG TAB PO SCH (06:00)
[2021-04-25] MEDS: LEVOTHYROXINE SODIUM 75 MCG TAB PO SCH (06:49)
[2021-04-25] MEDS: LEVOTHYROXINE SODIUM 100 MCG TAB PO SCH (06:49)
[2021-04-25] MEDS: LIDOCAINE 4% PATCH TP PRN (08:48)
[2021-04-25] MEDS: TRAMADOL HCL 50 MG TAB PO PRN (08:48)
[2021-04-25] MEDS: CLOPIDOGREL BISULFATE 75 MG TAB PO SCH (08:49)
[2021-04-25] MEDS: MEMANTINE 10 MG TAB PO SCH (08:49)
[2021-04-25] MEDS: METOPROLOL SUCCINATE 50 MG TAB XL PO SCH (08:50)
[2021-04-25] MEDS: ASPIRIN 81 MG CHEW TAB PO SCH (08:50)
[2021-04-25] MEDS: MEROPENEM 500 MG in SODIUM CHLORIDE 0.9% 50ML 50 ML IV SCH ×2 (08:50→21:53)
[2021-04-25] MEDS: BUPROPION HCL 150 MG TABCR PO SCH (08:51)
[2021-04-25] MEDS: FENOFIBRATE 48 MG TAB PO SCH (08:51)
[2021-04-25] MEDS: INSULIN LISPRO 100 UNIT/1 ML 3ML VIAL SQ SCH ×4 (08:58→21:58)
[2021-04-25] MEDS: RANOLAZINE 500 MG TABSR PO SCH ×2 (09:02→18:14)
[2021-04-25] MEDS: NYSTATIN 15 GM POWDER UD BTL TOP SCH ×2 (09:02→18:14)
[2021-04-25] MEDS: PANTOPRAZOLE SOD 40 MG TABEC PO SCH (11:16)
[2021-04-25] MEDS ORDERED: TRIHEXYPHENIDYL5 MG PO (11:40)
[2021-04-25] MEDS: ENOXAPARIN SOD INJ 40 MG/0.4 ML SYR SC SCH (18:14)
[2021-04-25] MEDS: Vancomycin IV 1 GM in SODIUM CHLORIDE 0.9% 250ML 250 ML IV SCH (18:14)
[2021-04-25] MEDS: CRESTOR 10MG PO SCH (21:55)
[2021-04-25] MEDS: FLUPHENAZINE HCL 2.5 MG TAB PO SCH (21:59)
[2021-04-26] VITALS (8 sets, daily range): BP systolic 155–188; BP diastolic 63–82
[2021-04-26] MEDS: LEVOTHYROXINE SODIUM 75 MCG TAB PO SCH (05:56)
[2021-04-26] MEDS: LEVOTHYROXINE SODIUM 100 MCG TAB PO SCH (05:56)
[2021-04-26] MEDS: FLUPHENAZINE HCL 2.5 MG TAB PO SCH ×3 (05:56→20:30)
[2021-04-26] MEDS: Vancomycin IV 1 GM in SODIUM CHLORIDE 0.9% 250ML 250 ML IV SCH (05:56)
[2021-04-26] MEDS: PANTOPRAZOLE SOD 40 MG TABEC PO SCH (08:30)
[2021-04-26] MEDS: MEROPENEM 500 MG in SODIUM CHLORIDE 0.9% 50ML 50 ML IV SCH (08:30)
[2021-04-26] MEDS: ASPIRIN 81 MG CHEW TAB PO SCH (08:30)
[2021-04-26] MEDS: MEMANTINE 10 MG TAB PO SCH (08:30)
[2021-04-26] MEDS: CLOPIDOGREL BISULFATE 75 MG TAB PO SCH (08:30)
[2021-04-26] MEDS: INSULIN LISPRO 100 UNIT/1 ML 3ML VIAL SQ SCH ×4 (08:30→20:30)
[2021-04-26] MEDS: METOPROLOL SUCCINATE 50 MG TAB XL PO SCH (08:31)
[2021-04-26] MEDS: FENOFIBRATE 48 MG TAB PO SCH (08:31)
[2021-04-26] MEDS: BUPROPION HCL 150 MG TABCR PO SCH (08:31)
[2021-04-26] MEDS: RANOLAZINE 500 MG TABSR PO SCH ×2 (08:31→16:45)
[2021-04-26] MEDS ORDERED: ONDANSETRON HCL 4 MG ORAL DISINTEGRATING TAB PO PRN (10:30)
[2021-04-26] MEDS: NYSTATIN 15 GM POWDER UD BTL TOP SCH ×2 (10:42→16:45)
[2021-04-26] MEDS: ACETAMINOPHEN 325 MG TAB PO PRN (12:39)
[2021-04-26] MEDS: TRAMADOL HCL 50 MG TAB PO PRN ×2 (12:39→20:31)
[2021-04-26] MEDS: HYDRALAZINE HCL 20 MG/ML VIAL IV PRN (14:07)
[2021-04-26] MEDS ORDERED: NIFEDIPINE CR 30 MG TAB PO SCH (16:30)
[2021-04-26] MEDS ORDERED: HYDRALAZINE HCL 100 MG TABLET PO SCH (16:30)
[2021-04-26] MEDS: ENOXAPARIN SOD INJ 40 MG/0.4 ML SYR SC SCH (16:47)
[2021-04-26] MEDS: LOSARTAN POTASSIUM 100 MG TAB PO SCH (16:47)
[2021-04-26] MEDS: LIDOCAINE 4% PATCH TP PRN (20:30)
[2021-04-26] MEDS: CRESTOR 10MG PO SCH (20:30)
[2021-04-27] VITALS (7 sets, daily range): BP systolic 138–175; BP diastolic 61–91
[2021-04-27] MEDS: LEVOTHYROXINE SODIUM 100 MCG TAB PO SCH (05:58)
[2021-04-27] MEDS: FLUPHENAZINE HCL 2.5 MG TAB PO SCH (05:58)
[2021-04-27] MEDS: LEVOTHYROXINE SODIUM 75 MCG TAB PO SCH (05:58)
[2021-04-27] MEDS: LIDOCAINE 4% PATCH TP PRN (06:30)
[2021-04-27] MEDS: ACETAMINOPHEN 325 MG TAB PO PRN (07:52)
[2021-04-27] MEDS: PANTOPRAZOLE SOD 40 MG TABEC PO SCH (07:53)
[2021-04-27] MEDS: BUPROPION HCL 150 MG TABCR PO SCH (08:17)
[2021-04-27] MEDS: CLOPIDOGREL BISULFATE 75 MG TAB PO SCH (08:17)
[2021-04-27] MEDS: ASPIRIN 81 MG CHEW TAB PO SCH (08:17)
[2021-04-27] MEDS: FENOFIBRATE 48 MG TAB PO SCH (08:17)
[2021-04-27] MEDS: LOSARTAN POTASSIUM 100 MG TAB PO SCH (08:18)
[2021-04-27] MEDS: RANOLAZINE 500 MG TABSR PO SCH (08:18)
[2021-04-27] MEDS: METOPROLOL SUCCINATE 50 MG TAB XL PO SCH (08:19)
[2021-04-27] MEDS: INSULIN LISPRO 100 UNIT/1 ML 3ML VIAL SQ SCH ×2 (08:24→12:17)
[2021-04-27] MEDS: MEMANTINE 10 MG TAB PO SCH (08:25)
[2021-04-27] MEDS: NYSTATIN 15 GM POWDER UD BTL TOP SCH (08:26)
[2021-04-27] MEDS ORDERED: CEFTRIAXONE 2 GM in SODIUM CHLORIDE 0.9% 100 ML IV SCH (09:00)
[2021-04-27] MEDS: TRAMADOL HCL 50 MG TAB PO PRN ×2 (12:23→13:00)
== END 2021-04-27 15:07 | disposition home or self-care (01) | DRG 689 ==
LOC: EDBD 09:22 → ER 09:30 → ERHOLD 11:10 → MED/SURG3 11:41
PROVIDERS: ADMIT Internal Medicine; ATTEND Internal Medicine
DX: N39.0 Urinary tract infection, site not specified (principal); G93.41 Metabolic encephalopathy; N17.9 Acute kidney failure, unspecified; E53.8 Deficiency of other specified B group vitamins; I25.10 Atherosclerotic heart disease of native coronary artery without angina pectoris; Z95.5 Presence of coronary angioplasty implant and graft; F31.9 Bipolar disorder, unspecified; E11.9 Type 2 diabetes mellitus without complications
CPT/HCPCS: 36415; 70450; 74176; 80053; 80202; 81001; 82140; 82550; 82553; 82607; 82948; 83605; 83735; 84443; 84484; 85025; 87040; 87086; 87186; 94799; 96372; 97139; 99251; 99284; J0360; J0696; J1650; J2185; J2543; J3370; J7030; J7050; U0002

== ENCOUNTER → 2021-05-17 | Day surgery (SDC) | payer MEDICARE ==
[2021-05-15 11:54] LABS: BASOPHILS % 0.6 % (0.0-1.0); EOSINOPHILS # (AUTO) 0.1 (0.0-0.4); EOSINOPHILS % 1.5 % (0.0-6.0); HEMOGLOBIN 12.5 g/dL (12.0-16.0); LYMPHOCYTES # (AUTO) 1.7 (1.0-3.2); LYMPHOCYTES % 24.6 % (18.0-39.1); MEAN CORPUSCULAR HEMOGLOBIN 31.6 pg (28-32); MEAN CORPUSCULAR HGB CONC 32.9 g/dL (31-35); MEAN CORPUSCULAR VOLUME 96.2 fL (81-99); MONOCYTES # (AUTO) 0.5 (0.2-0.8); MONOCYTES % 6.6 % (4.4-11.3); NEUTROPHILS # (AUTO) 4.5 (2.1-6.9); NEUTROPHILS % 66.1 % (38.7-80.0); PLATELET COUNT 236 x10e3/uL (140-360); RED BLOOD COUNT 3.95 x10e6/uL (3.6-5.1); RED CELL DISTRIBUTION WIDTH 12.2 % (11.7-14.4)
[~2021-05-17] MED LIST changes: +B&O 60MG R/S 60 MG SUPP PR ONE; +BUPIVACAINE HCL 0.5% INJ 30 ML VIAL INJ ONE; +CLOPIDOGREL75 MG PO; +DEXAMETHASONE SOD PHOS INJ 4 MG/ML SDV ONE; +EXCEDRIN EXTRA1 EAC1; +FENTANYL CITRATE/PF 100MCG/2 ML INJ ONE; +GENTAMICIN 80MG/NS 100 ML 200 ML IV ONE; +GLIMEPIRIDE2 MG PO; +IOPAMIDOL 300MG/ML 50ML INFUS..BTL IV ONE; +LIDOCAINE 2%/ EPINEPHRINE 20ML MDV ONE; +LIDOCAINE HCL 2% LOCAL INJ 5 ML SDV VIAL INJ ONE; +METHOCARBAMOL750 MG PO; +MIDAZOLAM HCL 2 MG/2 ML VIAL ONE; +NAMENDA5 MG PO; +NEURONTIN300 MG PO; +ONDANSETRON HCL INJ 2MG/ML 2ML 2 MG/ML VIAL ONE; +PHENYLEPHRINE HCL 1% 10 MG/ML VIAL ONE; +PIPERACILLIN/TAZOBACTAM 3.375 GM VIAL ONE; +POVIDONE IODINE 0.05% 0.05 % ML PO ONE; +PROPOFOL IV EMULSION 10 MG/ML 20 ML VIAL ONE; +RANEXA500 MG PO; +SEVOFLURANE INHAL SOLN 250 ML PEN BTL ONE; +SODIUM CHLORIDE 0.9% 50ML 50 ML ONE; +ZUPLENZ4 MG PO
[2021-05-17 08:51] LABS: ANION GAP 13.5 mmol/L (8-16); CALCIUM 9.8 mg/dL (8.4-10.2); CREATININE, SERUM 1.41 mg/dL (0.57-1.11); POTASSIUM 4.5 mmol/L (3.5-5.1)
[2021-05-17 10:40] VITALS: BP 146/68
== END | disposition home or self-care (01) ==
LOC: OR 07:42
PROVIDERS: ATTEND Urology
DX: N39.0 Urinary tract infection, site not specified (principal); N95.2 Postmenopausal atrophic vaginitis; N81.6 Rectocele; N36.8 Other specified disorders of urethra; J45.909 Unspecified asthma, uncomplicated; I25.10 Atherosclerotic heart disease of native coronary artery without angina pectoris; I10 Essential (primary) hypertension; E78.5 Hyperlipidemia, unspecified; E11.9 Type 2 diabetes mellitus without complications; E66.9 Obesity, unspecified; K21.9 Gastro-esophageal reflux disease without esophagitis; K76.9 Liver disease, unspecified; E03.9 Hypothyroidism, unspecified; F31.9 Bipolar disorder, unspecified; F20.9 Schizophrenia, unspecified; Z88.6 Allergy status to analgesic agent; Z01.810 Encounter for preprocedural cardiovascular examination; Z01.812 Encounter for preprocedural laboratory examination; Z01.818 Encounter for other preprocedural examination; Z20.822 Contact with and (suspected) exposure to COVID-19; Z68.34 Body mass index [BMI] 34.0-34.9, adult; Z95.5 Presence of coronary angioplasty implant and graft; Z79.02 Long term (current) use of antithrombotics/antiplatelets; Z79.82 Long term (current) use of aspirin; Z79.84 Long term (current) use of oral hypoglycemic drugs; Z79.899 Other long term (current) drug therapy
CPT/HCPCS: 36415 ×2; 51040; 52005; 71046; 74420; 80048; 82948; 85025; 86850; 86900; 87086; 93005; C1758; J1100; J1580; J2001 ×2; J2250; J2370; J2405; J2543; J2704; J3010; Q9967; U0002

== ENCOUNTER 2021-06-01 11:18 | Inpatient (IN) | payer MEDICARE ==
[~2021-06-01] VITALS: Ht 165.1 cm; Wt 95.7 kg
[~2021-06-01 11:18] MED LIST changes: -B&O 60MG R/S 60 MG SUPP PR ONE; -BUPIVACAINE HCL 0.5% INJ 30 ML VIAL INJ ONE; -DEXAMETHASONE SOD PHOS INJ 4 MG/ML SDV ONE; -FENTANYL CITRATE/PF 100MCG/2 ML INJ ONE; -GENTAMICIN 80MG/NS 100 ML 200 ML IV ONE; -IOPAMIDOL 300MG/ML 50ML INFUS..BTL IV ONE; -LIDOCAINE 2%/ EPINEPHRINE 20ML MDV ONE; -LIDOCAINE HCL 2% LOCAL INJ 5 ML SDV VIAL INJ ONE; -MIDAZOLAM HCL 2 MG/2 ML VIAL ONE; -ONDANSETRON HCL INJ 2MG/ML 2ML 2 MG/ML VIAL ONE; -PHENYLEPHRINE HCL 1% 10 MG/ML VIAL ONE; -PIPERACILLIN/TAZOBACTAM 3.375 GM VIAL ONE; -POVIDONE IODINE 0.05% 0.05 % ML PO ONE; -PROPOFOL IV EMULSION 10 MG/ML 20 ML VIAL ONE; -SEVOFLURANE INHAL SOLN 250 ML PEN BTL ONE; -SODIUM CHLORIDE 0.9% 50ML 50 ML ONE
[2021-06-01 11:40] LABS: BASOPHILS # (AUTO) 0.1 (0.0-0.1); BASOPHILS % 0.7 % (0.0-1.0); EOSINOPHILS # (AUTO) 0.2 (0.0-0.4); EOSINOPHILS % 2.1 % (0.0-6.0); HEMATOCRIT 36.1 % (34.2-44.1); HEMOGLOBIN 11.9 g/dL (12.0-16.0); LYMPHOCYTES # (AUTO) 1.7 (1.0-3.2); LYMPHOCYTES % 23.2 % (18.0-39.1); MEAN CORPUSCULAR HEMOGLOBIN 31.2 pg (28-32); MEAN CORPUSCULAR VOLUME 94.5 fL (81-99); MONOCYTES # (AUTO) 0.6 (0.2-0.8); MONOCYTES % 8.8 % (4.4-11.3); NEUTROPHILS # (AUTO) 4.7 (2.1-6.9); NEUTROPHILS % 64.2 % (38.7-80.0); PLATELET COUNT 262 x10e3/uL (140-360); RED BLOOD COUNT 3.82 x10e6/uL (3.6-5.1)
[2021-06-01 11:46] LABS: INR 0.89; PROTHROMBIN TIME 12.9 seconds (11.9-14.5)
[2021-06-01 11:47] LABS: PARTIAL THROMBOPLASTIN TIME 26.4 seconds (23.8-35.5)
[2021-06-01 11:59] LABS: ALBUMIN 3.3 g/dL (3.5-5.0); ALBUMIN/GLOBULIN RATIO 0.9 (0.8-2.0); ANION GAP 12.5 mmol/L (8-16); CALCIUM 8.8 mg/dL (8.4-10.2); CREATININE, SERUM 1.31 mg/dL (0.57-1.11); POTASSIUM 4.5 mmol/L (3.5-5.1)
[2021-06-01] MEDS ORDERED: ALBUTEROL/IPRATROPIUM 3 ML NEB NEB NR (12:00)
[2021-06-01] MEDS ORDERED: DEXAMETHASONE SOD PHOS 10 MG/1 ML VIAL IV NR (12:00)
[2021-06-01 12:07] LABS: CREATINE KINASE MB 0.9 ng/mL (0-5.0)
[2021-06-01 12:09] LABS: CLARITY,URINE CLEAR (CLEAR); COLOR,URINE YELLOW (YELLOW); LEUKOCYTE ESTERASE ,URINE TRACE (NEGATIVE); NITRITE,URINE NEGATIVE (NEGATIVE); PROTEIN,URINE DIPSTICK NEGATIVE (NEGATIVE)
[2021-06-01 12:10] LABS: KETONES,URINE NEGATIVE (NEGATIVE); URINE UROBILINOGEN 0.2 mg/dL (0.2 - 1)
[2021-06-01 12:13] LABS: BACTERIA,URINE FEW /HPF; EPITHELIAL CELLS,URINE FEW /LPF
[2021-06-01 13:37] LABS: ABG HCO3 28 mmol/L (22-26); ABG PCO2 45 mmHg (35-45); ABG PO2 79 mmHg (80-105); ABG TCO2 29
[2021-06-01] MEDS: CEFTRIAXONE 1 GM in SODIUM CHLORIDE 0.9% 50ML 50 ML IV SCH ×2 (14:00→22:27)
[2021-06-01] MEDS ORDERED: SODIUM CHLORIDE 0.9% 1000ML 1,000 ML IV ONE (15:00)
[2021-06-01] MEDS ORDERED: ONDANSETRON HCL INJ 2MG/ML 2ML 2 MG/ML VIAL IV PRN (15:00)
[2021-06-01] MEDS: ALBUTEROL/IPRATROPIUM 3 ML NEB NEB SCH ×3 (16:20→23:45)
[2021-06-01 16:45] VITALS: BP 170/104
[2021-06-01] MEDS ORDERED: MELOXICAM15 MG PO (17:58)
[2021-06-01] MEDS ORDERED: POLYETHYLENE GLYCOL 3350 17 GM PACK PO PRN (18:45)
[2021-06-01] MEDS ORDERED: METHOCARBAMOL 750 MG TAB PO PRN (19:00)
[2021-06-01] MEDS ORDERED: ALBUTEROL SULFATE HFA 8GM INHALATION AEROSOL INH PRN (19:00)
[2021-06-01 20:00] VITALS: BP 180/90
[2021-06-01 22:00] VITALS: BP 180/90
[2021-06-01] MEDS: FAMOTIDINE 20 MG TAB PO SCH (22:26)
[2021-06-01] MEDS: DOCUSATE SODIUM 100 MG CAP PO SCH (22:26)
[2021-06-01] MEDS: RANOLAZINE 500 MG TABSR PO SCH (22:27)
[2021-06-01] MEDS: SIMVASTATIN 20 MG TAB PO SCH (22:27)
[2021-06-01] MEDS: METHYLPREDNISOLONE SOD SUCC 125 MG/2ML VIAL IV SCH (22:27)
[2021-06-01] MEDS: HYDRALAZINE HCL 20 MG/ML VIAL IV PRN (22:28)
[2021-06-01] MEDS: TEMAZEPAM 7.5 MG CAP PO PRN (22:40)
[2021-06-01] MEDS ORDERED: DEXTROSE 50% SYRINGE 50 ML IV PRN (23:30)
[2021-06-02] VITALS (8 sets, daily range): BP systolic 143–176; BP diastolic 66–97
[2021-06-02] MEDS: INSULIN REGULAR, HUMAN 100 UNIT/1 ML SQ SCH ×5 (00:11→21:00)
[2021-06-02 00:38] LABS: CHOL/HDL RATIO 3.8 (3.0-3.6); PHOSPHORUS 2.6 MG/DL (2.3-4.7)
[2021-06-02 00:48] LABS: CREATINE KINASE MB 0.9 ng/mL (0-5.0)
[2021-06-02 00:59] LABS: THYROID STIMULATING HORMONE 0.276 uIU/mL (0.350-4.940)
[2021-06-02] MEDS: ALBUTEROL/IPRATROPIUM 3 ML NEB NEB SCH ×6 (04:05→23:20)
[2021-06-02] MEDS ORDERED: GUAIFENESIN/CODEINE 5 ML LIQD PO PRN (04:30)
[2021-06-02] MEDS: GUAIFENESIN 200 MG/10 ML UDC PO PRN ×4 (05:05→22:04)
[2021-06-02] MEDS: ACETAMINOPHEN 325 MG TAB PO PRN (05:47)
[2021-06-02] MEDS: METHYLPREDNISOLONE SOD SUCC 125 MG/2ML VIAL IV SCH ×2 (05:47→13:55)
[2021-06-02 07:05] LABS: BASOPHILS % 0.2 % (0.0-1.0); HEMATOCRIT 37.2 % (34.2-44.1); HEMOGLOBIN 12.4 g/dL (12.0-16.0); LYMPHOCYTES # (AUTO) 0.8 (1.0-3.2); LYMPHOCYTES % 14.1 % (18.0-39.1); MEAN CORPUSCULAR HEMOGLOBIN 31.5 pg (28-32); MEAN CORPUSCULAR HGB CONC 33.3 g/dL (31-35); MEAN CORPUSCULAR VOLUME 94.4 fL (81-99); MONOCYTES # (AUTO) 0.1 (0.2-0.8); MONOCYTES % 1.7 % (4.4-11.3); NEUTROPHILS # (AUTO) 4.8 (2.1-6.9); NEUTROPHILS % 82.4 % (38.7-80.0); PLATELET COUNT 288 x10e3/uL (140-360); RED BLOOD COUNT 3.94 x10e6/uL (3.6-5.1); RED CELL DISTRIBUTION WIDTH 11.9 % (11.7-14.4)
[2021-06-02] MEDS ORDERED: INSULIN REGULAR, HUMAN 100 UNIT/1 ML SQ SCH (07:30)
[2021-06-02 07:32] LABS: ALBUMIN 3.3 g/dL (3.5-5.0); ALBUMIN/GLOBULIN RATIO 0.9 (0.8-2.0); ANION GAP 11.9 mmol/L (8-16); CALCIUM 9.3 mg/dL (8.4-10.2); CREATININE, SERUM 1.19 mg/dL (0.57-1.11); POTASSIUM 3.9 mmol/L (3.5-5.1)
[2021-06-02] MEDS: FAMOTIDINE 20 MG TAB PO SCH ×2 (08:45→17:25)
[2021-06-02] MEDS: DOCUSATE SODIUM 100 MG CAP PO SCH ×2 (08:45→17:25)
[2021-06-02] MEDS: LEVOTHYROXINE SODIUM 50 MCG TAB PO SCH (08:45)
[2021-06-02] MEDS: MEMANTINE 10 MG TAB PO SCH (08:45)
[2021-06-02] MEDS: CLOPIDOGREL BISULFATE 75 MG TAB PO SCH (08:45)
[2021-06-02] MEDS: ASPIRIN 81 MG CHEW TAB PO SCH (08:45)
[2021-06-02] MEDS: RANOLAZINE 500 MG TABSR PO SCH ×2 (08:45→17:25)
[2021-06-02] MEDS: CEFTRIAXONE 1 GM in SODIUM CHLORIDE 0.9% 50ML 50 ML IV SCH ×2 (08:45→21:11)
[2021-06-02] MEDS: METOPROLOL SUCCINATE 50 MG TAB XL PO SCH (08:46)
[2021-06-02] MEDS: BUPROPION HCL 150 MG TABCR PO SCH (08:46)
[2021-06-02] MEDS ORDERED: FLUPHENAZINE HCL 2.5 MG TAB PO SCH (09:00)
[2021-06-02] MEDS: OXAZEPAM 15 MG CAP PO PRN ×2 (11:48→21:13)
[2021-06-02] MEDS ORDERED: INSULIN REGULAR, HUMAN 100 UNIT/1 ML SQ NR (13:30)
[2021-06-02] MEDS ORDERED: INSULIN GLARGINE 100 UNITS/ML VIAL SQ SCH (21:00)
[2021-06-02] MEDS: SIMVASTATIN 20 MG TAB PO SCH (21:12)
[2021-06-02] MEDS: TEMAZEPAM 7.5 MG CAP PO PRN (21:13)
[2021-06-03] VITALS (8 sets, daily range): BP systolic 67–174; BP diastolic 61–81
[2021-06-03] MEDS: ALBUTEROL/IPRATROPIUM 3 ML NEB NEB SCH ×4 (03:10→23:10)
[2021-06-03 06:14] LABS: BASOPHILS % 0.1 % (0.0-1.0); HEMOGLOBIN 11.3 g/dL (12.0-16.0); LYMPHOCYTES # (AUTO) 1.7 (1.0-3.2); LYMPHOCYTES % 15.6 % (18.0-39.1); MEAN CORPUSCULAR HEMOGLOBIN 31.3 pg (28-32); MEAN CORPUSCULAR HGB CONC 33.2 g/dL (31-35); MEAN CORPUSCULAR VOLUME 94.2 fL (81-99); MONOCYTES # (AUTO) 0.7 (0.2-0.8); MONOCYTES % 6.9 % (4.4-11.3); NEUTROPHILS # (AUTO) 8.3 (2.1-6.9); NEUTROPHILS % 76.8 % (38.7-80.0); PLATELET COUNT 280 x10e3/uL (140-360); RED BLOOD COUNT 3.61 x10e6/uL (3.6-5.1); RED CELL DISTRIBUTION WIDTH 12.1 % (11.7-14.4)
[2021-06-03 06:35] LABS: ANION GAP 11.8 mmol/L (8-16); CALCIUM 9.3 mg/dL (8.4-10.2); CREATININE, SERUM 1.4 mg/dL (0.57-1.11); POTASSIUM 3.8 mmol/L (3.5-5.1)
[2021-06-03] MEDS: INSULIN REGULAR, HUMAN 100 UNIT/1 ML SQ SCH ×4 (07:30→21:00)
[2021-06-03] MEDS: LEVOTHYROXINE SODIUM 50 MCG TAB PO SCH (08:00)
[2021-06-03] MEDS: FAMOTIDINE 20 MG TAB PO SCH ×2 (08:40→17:12)
[2021-06-03] MEDS: DOCUSATE SODIUM 100 MG CAP PO SCH ×2 (08:41→17:12)
[2021-06-03] MEDS: FLUPHENAZINE 2.5 MG PO SCH (08:41)
[2021-06-03] MEDS: ASPIRIN 81 MG CHEW TAB PO SCH (08:41)
[2021-06-03] MEDS: CLOPIDOGREL BISULFATE 75 MG TAB PO SCH (08:41)
[2021-06-03] MEDS: BUPROPION HCL 150 MG TABCR PO SCH (08:42)
[2021-06-03] MEDS: METOPROLOL SUCCINATE 50 MG TAB XL PO SCH (08:46)
[2021-06-03] MEDS: RANOLAZINE 500 MG TABSR PO SCH ×2 (09:00→17:13)
[2021-06-03] MEDS: MEMANTINE 10 MG TAB PO SCH (09:00)
[2021-06-03] MEDS: GUAIFENESIN 200 MG/10 ML UDC PO PRN ×4 (10:30→21:05)
[2021-06-03] MEDS ORDERED: ULTRAM 50MG50 MG PO (10:32)
[2021-06-03] MEDS ORDERED: SODIUM CHLORIDE 0.9% 500ML 500 ML IV ONE (10:45)
[2021-06-03] MEDS: TRAMADOL HCL 50 MG TAB PO PRN ×2 (11:51→21:05)
[2021-06-03] MEDS ORDERED: LEVOFLOXACIN 500MG/D5W 100ML 100 ML IV SCH ×2 (13:00→19:00)
[2021-06-03] MEDS: LACTATED RINGER'S 1,000 ML INJ SCH (18:13)
[2021-06-03] MEDS: INSULIN GLARGINE 100 UNITS/ML VIAL SQ SCH (21:00)
[2021-06-03] MEDS: SIMVASTATIN 20 MG TAB PO SCH (21:04)
[2021-06-03] MEDS: TEMAZEPAM 7.5 MG CAP PO PRN (21:04)
[2021-06-03] MEDS: OXAZEPAM 15 MG CAP PO PRN (21:05)
[2021-06-04] VITALS (7 sets, daily range): BP systolic 142–165; BP diastolic 56–78
[2021-06-04] MEDS: ALBUTEROL/IPRATROPIUM 3 ML NEB NEB SCH ×5 (03:05→19:39)
[2021-06-04] MEDS: LACTATED RINGER'S 1,000 ML INJ SCH (04:05)
[2021-06-04 05:55] LABS: BASOPHILS % 0.4 % (0.0-1.0); EOSINOPHILS # (AUTO) 0.1 (0.0-0.4); HEMATOCRIT 33.5 % (34.2-44.1); HEMOGLOBIN 11.1 g/dL (12.0-16.0); LYMPHOCYTES # (AUTO) 2.6 (1.0-3.2); LYMPHOCYTES % 30.7 % (18.0-39.1); MEAN CORPUSCULAR HEMOGLOBIN 31.7 pg (28-32); MEAN CORPUSCULAR HGB CONC 33.1 g/dL (31-35); MEAN CORPUSCULAR VOLUME 95.7 fL (81-99); MONOCYTES # (AUTO) 0.8 (0.2-0.8); MONOCYTES % 9.5 % (4.4-11.3); NEUTROPHILS # (AUTO) 4.8 (2.1-6.9); NEUTROPHILS % 57.4 % (38.7-80.0); PLATELET COUNT 244 x10e3/uL (140-360); RED CELL DISTRIBUTION WIDTH 12.4 % (11.7-14.4)
[2021-06-04] MEDS: LEVOTHYROXINE SODIUM 75 MCG TAB PO SCH (06:00)
[2021-06-04 06:30] LABS: ALBUMIN/GLOBULIN RATIO 1.1 (0.8-2.0); ANION GAP 9.9 mmol/L (8-16); CALCIUM 9.3 mg/dL (8.4-10.2); CREATININE, SERUM 1.33 mg/dL (0.57-1.11); POTASSIUM 3.9 mmol/L (3.5-5.1)
[2021-06-04] MEDS: LEVOTHYROXINE SODIUM 100 MCG TAB PO SCH (06:37)
[2021-06-04] MEDS: INSULIN REGULAR, HUMAN 100 UNIT/1 ML SQ SCH ×4 (07:30→21:04)
[2021-06-04] MEDS ORDERED: LEVOTHYROXINE SODIUM 100 MCG TAB PO SCH (07:30)
[2021-06-04] MEDS: FAMOTIDINE 20 MG TAB PO SCH ×2 (08:00→16:58)
[2021-06-04] MEDS: ASPIRIN 81 MG CHEW TAB PO SCH (08:35)
[2021-06-04] MEDS: DOCUSATE SODIUM 100 MG CAP PO SCH ×2 (08:35→16:58)
[2021-06-04] MEDS: RANOLAZINE 500 MG TABSR PO SCH ×2 (08:38→16:59)
[2021-06-04] MEDS: CLOPIDOGREL BISULFATE 75 MG TAB PO SCH (08:38)
[2021-06-04] MEDS: FLUPHENAZINE 2.5 MG PO SCH (08:38)
[2021-06-04] MEDS: BUPROPION HCL 150 MG TABCR PO SCH (08:38)
[2021-06-04] MEDS: METOPROLOL SUCCINATE 50 MG TAB XL PO SCH (08:38)
[2021-06-04] MEDS: MEMANTINE 10 MG TAB PO SCH (08:38)
[2021-06-04] MEDS: TRAMADOL HCL 50 MG TAB PO PRN (08:50)
[2021-06-04] MEDS ORDERED: AZITHROMYCIN 250 MG TAB PO SCH (09:00)
[2021-06-04] MEDS: CIPROFLOXACIN 400 MG/D5W 200ML 200 ML IV SCH (16:58)
[2021-06-04] MEDS ORDERED: SODIUM CHLORIDE 0.9% 1000ML 1,000 ML ONE (17:50)
[2021-06-04] MEDS: SIMVASTATIN 20 MG TAB PO SCH (21:03)
[2021-06-04] MEDS: GUAIFENESIN 200 MG/10 ML UDC PO PRN (21:04)
[2021-06-04] MEDS: INSULIN GLARGINE 100 UNITS/ML VIAL SQ SCH (21:04)
[2021-06-05] MEDS: ALBUTEROL/IPRATROPIUM 3 ML NEB NEB SCH ×7 (00:20→19:00)
[2021-06-05] MEDS: HYDRALAZINE HCL 20 MG/ML VIAL IV PRN ×2 (00:21→13:14)
[2021-06-05] MEDS: ACETAMINOPHEN 325 MG TAB PO PRN (00:21)
[2021-06-05] MEDS: TEMAZEPAM 7.5 MG CAP PO PRN (00:21)
[2021-06-05] MEDS: CIPROFLOXACIN 400 MG/D5W 200ML 200 ML IV SCH ×2 (04:45→16:08)
[2021-06-05] MEDS: LEVOTHYROXINE SODIUM 100 MCG TAB PO SCH (05:32)
[2021-06-05] MEDS: LEVOTHYROXINE SODIUM 75 MCG TAB PO SCH (05:32)
[2021-06-05 05:48] VITALS: BP 139/77
[2021-06-05] MEDS: TRAMADOL HCL 50 MG TAB PO PRN ×3 (05:55→21:31)
[2021-06-05 06:11] LABS: BASOPHILS % 0.4 % (0.0-1.0); EOSINOPHILS # (AUTO) 0.2 (0.0-0.4); HEMATOCRIT 36.3 % (34.2-44.1); HEMOGLOBIN 12.1 g/dL (12.0-16.0); LYMPHOCYTES # (AUTO) 2.1 (1.0-3.2); LYMPHOCYTES % 27.1 % (18.0-39.1); MEAN CORPUSCULAR HEMOGLOBIN 31.4 pg (28-32); MEAN CORPUSCULAR HGB CONC 33.3 g/dL (31-35); MEAN CORPUSCULAR VOLUME 94.3 fL (81-99); MONOCYTES # (AUTO) 0.8 (0.2-0.8); MONOCYTES % 9.6 % (4.4-11.3); NEUTROPHILS # (AUTO) 4.7 (2.1-6.9); NEUTROPHILS % 60.1 % (38.7-80.0); PLATELET COUNT 271 x10e3/uL (140-360); RED BLOOD COUNT 3.85 x10e6/uL (3.6-5.1); RED CELL DISTRIBUTION WIDTH 12.4 % (11.7-14.4)
[2021-06-05 06:27] LABS: ALBUMIN 3.1 g/dL (3.5-5.0); ANION GAP 10.8 mmol/L (8-16); CALCIUM 9.6 mg/dL (8.4-10.2); CREATININE, SERUM 1.28 mg/dL (0.57-1.11); POTASSIUM 3.8 mmol/L (3.5-5.1)
[2021-06-05] MEDS: FAMOTIDINE 20 MG TAB PO SCH ×2 (07:54→16:11)
[2021-06-05 08:15] VITALS: BP 158/78
[2021-06-05] MEDS: INSULIN REGULAR, HUMAN 100 UNIT/1 ML SQ SCH ×4 (08:15→21:12)
[2021-06-05 08:36] VITALS: BP 158/78
[2021-06-05] MEDS: DOCUSATE SODIUM 100 MG CAP PO SCH ×2 (09:08→16:08)
[2021-06-05] MEDS: CLOPIDOGREL BISULFATE 75 MG TAB PO SCH (09:08)
[2021-06-05] MEDS: ASPIRIN 81 MG CHEW TAB PO SCH (09:08)
[2021-06-05] MEDS: FLUPHENAZINE 2.5 MG PO SCH (09:08)
[2021-06-05] MEDS: MEMANTINE 10 MG TAB PO SCH (09:08)
[2021-06-05] MEDS: RANOLAZINE 500 MG TABSR PO SCH ×2 (09:09→16:08)
[2021-06-05] MEDS: METOPROLOL SUCCINATE 50 MG TAB XL PO SCH (09:09)
[2021-06-05] MEDS: BUPROPION HCL 150 MG TABCR PO SCH (09:09)
[2021-06-05] MEDS: ONDANSETRON HCL 4 MG ORAL DISINTEGRATING TAB PO PRN (09:34)
[2021-06-05 11:26] VITALS: BP 176/91
[2021-06-05] MEDS: GUAIFENESIN 200 MG/10 ML UDC PO PRN ×2 (13:14→21:11)
[2021-06-05 20:13] VITALS: BP 141/56
[2021-06-05] MEDS: SIMVASTATIN 20 MG TAB PO SCH (21:12)
[2021-06-05] MEDS: INSULIN GLARGINE 100 UNITS/ML VIAL SQ SCH (21:13)
[2021-06-05] MEDS ORDERED: OXAZEPAM 15 MG CAP PO PRN (21:30)
[2021-06-06] VITALS (7 sets, daily range): BP systolic 140–178; BP diastolic 64–89
[2021-06-06] MEDS: ALBUTEROL/IPRATROPIUM 3 ML NEB NEB SCH ×6 (02:07→23:45)
[2021-06-06] MEDS: CIPROFLOXACIN 400 MG/D5W 200ML 200 ML IV SCH ×2 (04:09→16:00)
[2021-06-06 06:13] LABS: BASOPHILS % 0.4 % (0.0-1.0); EOSINOPHILS # (AUTO) 0.2 (0.0-0.4); EOSINOPHILS % 3.3 % (0.0-6.0); HEMATOCRIT 36.3 % (34.2-44.1); HEMOGLOBIN 11.8 g/dL (12.0-16.0); LYMPHOCYTES # (AUTO) 2.1 (1.0-3.2); LYMPHOCYTES % 29.3 % (18.0-39.1); MEAN CORPUSCULAR HEMOGLOBIN 31.2 pg (28-32); MEAN CORPUSCULAR HGB CONC 32.5 g/dL (31-35); MONOCYTES # (AUTO) 0.6 (0.2-0.8); MONOCYTES % 8.7 % (4.4-11.3); NEUTROPHILS % 57.3 % (38.7-80.0); PLATELET COUNT 269 x10e3/uL (140-360); RED BLOOD COUNT 3.78 x10e6/uL (3.6-5.1); RED CELL DISTRIBUTION WIDTH 12.3 % (11.7-14.4)
[2021-06-06] MEDS: LEVOTHYROXINE SODIUM 75 MCG TAB PO SCH (06:13)
[2021-06-06] MEDS: LEVOTHYROXINE SODIUM 100 MCG TAB PO SCH (06:13)
[2021-06-06 06:50] LABS: ANION GAP 11.2 mmol/L (8-16); CREATININE, SERUM 1.22 mg/dL (0.57-1.11); POTASSIUM 4.2 mmol/L (3.5-5.1)
[2021-06-06] MEDS: FAMOTIDINE 20 MG TAB PO SCH ×2 (07:30→16:30)
[2021-06-06] MEDS: INSULIN REGULAR, HUMAN 100 UNIT/1 ML SQ SCH ×4 (07:30→22:26)
[2021-06-06] MEDS: BUPROPION HCL 150 MG TABCR PO SCH (09:00)
[2021-06-06] MEDS: CLOPIDOGREL BISULFATE 75 MG TAB PO SCH (09:00)
[2021-06-06] MEDS: FLUPHENAZINE 2.5 MG PO SCH (09:00)
[2021-06-06] MEDS: MEMANTINE 10 MG TAB PO SCH (09:00)
[2021-06-06] MEDS: RANOLAZINE 500 MG TABSR PO SCH ×2 (09:00→17:00)
[2021-06-06] MEDS: DOCUSATE SODIUM 100 MG CAP PO SCH ×2 (09:00→17:00)
[2021-06-06] MEDS: ASPIRIN 81 MG CHEW TAB PO SCH (09:00)
[2021-06-06] MEDS: HYDRALAZINE HCL 20 MG/ML VIAL IV PRN (13:00)
[2021-06-06] MEDS: TRAMADOL HCL 50 MG TAB PO PRN (14:25)
[2021-06-06] MEDS: GUAIFENESIN 200 MG/10 ML UDC PO PRN (14:46)
[2021-06-06] MEDS: METOPROLOL SUCCINATE 50 MG TAB XL PO SCH (17:00)
[2021-06-06] MEDS: ACETAMINOPHEN 325 MG TAB PO PRN (17:39)
[2021-06-06] MEDS: ONDANSETRON HCL 4 MG ORAL DISINTEGRATING TAB PO PRN (19:40)
[2021-06-06] MEDS: SIMVASTATIN 20 MG TAB PO SCH (22:25)
[2021-06-06] MEDS: INSULIN GLARGINE 100 UNITS/ML VIAL SQ SCH (22:27)
[2021-06-07] VITALS (9 sets, daily range): BP systolic 106–167; BP diastolic 48–93
[2021-06-07] MEDS: ALBUTEROL/IPRATROPIUM 3 ML NEB NEB SCH ×6 (03:08→23:15)
[2021-06-07] MEDS: CIPROFLOXACIN 400 MG/D5W 200ML 200 ML IV SCH (04:17)
[2021-06-07] MEDS: LEVOTHYROXINE SODIUM 100 MCG TAB PO SCH (05:55)
[2021-06-07] MEDS: LEVOTHYROXINE SODIUM 75 MCG TAB PO SCH (05:55)
[2021-06-07 06:10] LABS: BASOPHILS % 0.6 % (0.0-1.0); EOSINOPHILS # (AUTO) 0.1 (0.0-0.4); EOSINOPHILS % 1.8 % (0.0-6.0); HEMATOCRIT 38.6 % (34.2-44.1); LYMPHOCYTES # (AUTO) 1.8 (1.0-3.2); LYMPHOCYTES % 24.5 % (18.0-39.1); MEAN CORPUSCULAR HEMOGLOBIN 31.5 pg (28-32); MEAN CORPUSCULAR HGB CONC 33.7 g/dL (31-35); MEAN CORPUSCULAR VOLUME 93.5 fL (81-99); MONOCYTES # (AUTO) 0.4 (0.2-0.8); MONOCYTES % 4.9 % (4.4-11.3); NEUTROPHILS # (AUTO) 4.8 (2.1-6.9); NEUTROPHILS % 67.5 % (38.7-80.0); PLATELET COUNT 314 x10e3/uL (140-360); RED BLOOD COUNT 4.13 x10e6/uL (3.6-5.1); RED CELL DISTRIBUTION WIDTH 12.1 % (11.7-14.4)
[2021-06-07 06:34] LABS: ALBUMIN 3.1 g/dL (3.5-5.0); ALBUMIN/GLOBULIN RATIO 0.9 (0.8-2.0); ANION GAP 11.8 mmol/L (8-16); CALCIUM 9.3 mg/dL (8.4-10.2); CREATININE, SERUM 1.03 mg/dL (0.57-1.11); POTASSIUM 3.8 mmol/L (3.5-5.1)
[2021-06-07] MEDS: FAMOTIDINE 20 MG TAB PO SCH ×2 (07:30→16:30)
[2021-06-07] MEDS: INSULIN REGULAR, HUMAN 100 UNIT/1 ML SQ SCH ×4 (07:30→21:00)
[2021-06-07] MEDS: FLUPHENAZINE 2.5 MG PO SCH (09:00)
[2021-06-07] MEDS: ASPIRIN 81 MG CHEW TAB PO SCH (09:00)
[2021-06-07] MEDS: DOCUSATE SODIUM 100 MG CAP PO SCH ×2 (09:00→17:00)
[2021-06-07] MEDS: METOPROLOL SUCCINATE 50 MG TAB XL PO SCH ×2 (09:00→17:00)
[2021-06-07] MEDS: RANOLAZINE 500 MG TABSR PO SCH ×2 (09:00→17:00)
[2021-06-07] MEDS: CLOPIDOGREL BISULFATE 75 MG TAB PO SCH (09:00)
[2021-06-07] MEDS: BUPROPION HCL 150 MG TABCR PO SCH (09:00)
[2021-06-07] MEDS: MEMANTINE 10 MG TAB PO SCH (09:00)
[2021-06-07] MEDS: INSULIN GLARGINE 100 UNITS/ML VIAL SQ SCH (21:00)
[2021-06-07] MEDS: SIMVASTATIN 20 MG TAB PO SCH (21:00)
[2021-06-08] MEDS: ALBUTEROL/IPRATROPIUM 3 ML NEB NEB SCH ×6 (03:33→22:55)
[2021-06-08 04:00] VITALS: BP 151/60
[2021-06-08 06:14] LABS: BASOPHILS # (AUTO) 0.1 (0.0-0.1); BASOPHILS % 0.5 % (0.0-1.0); EOSINOPHILS # (AUTO) 0.1 (0.0-0.4); HEMATOCRIT 38.3 % (34.2-44.1); HEMOGLOBIN 12.8 g/dL (12.0-16.0); LYMPHOCYTES # (AUTO) 2.5 (1.0-3.2); LYMPHOCYTES % 25.7 % (18.0-39.1); MEAN CORPUSCULAR HEMOGLOBIN 31.3 pg (28-32); MEAN CORPUSCULAR HGB CONC 33.4 g/dL (31-35); MEAN CORPUSCULAR VOLUME 93.6 fL (81-99); MONOCYTES # (AUTO) 0.8 (0.2-0.8); MONOCYTES % 8.4 % (4.4-11.3); NEUTROPHILS # (AUTO) 6.2 (2.1-6.9); NEUTROPHILS % 63.6 % (38.7-80.0); PLATELET COUNT 317 x10e3/uL (140-360); RED BLOOD COUNT 4.09 x10e6/uL (3.6-5.1); RED CELL DISTRIBUTION WIDTH 12.4 % (11.7-14.4)
[2021-06-08] MEDS: LEVOTHYROXINE SODIUM 100 MCG TAB PO SCH (06:27)
[2021-06-08] MEDS: LEVOTHYROXINE SODIUM 75 MCG TAB PO SCH (06:27)
[2021-06-08 06:37] LABS: ALBUMIN 3.3 g/dL (3.5-5.0); ALBUMIN/GLOBULIN RATIO 1.1 (0.8-2.0); ANION GAP 11.1 mmol/L (8-16); CALCIUM 9.6 mg/dL (8.4-10.2); CREATININE, SERUM 1.36 mg/dL (0.57-1.11); POTASSIUM 4.1 mmol/L (3.5-5.1)
[2021-06-08] MEDS: FAMOTIDINE 20 MG TAB PO SCH ×2 (07:30→16:30)
[2021-06-08] MEDS: INSULIN REGULAR, HUMAN 100 UNIT/1 ML SQ SCH ×4 (07:30→21:00)
[2021-06-08 08:00] VITALS: BP 134/65
[2021-06-08 08:29] VITALS: BP 134/65
[2021-06-08] MEDS: MEMANTINE 10 MG TAB PO SCH (09:00)
[2021-06-08] MEDS: ASPIRIN 81 MG CHEW TAB PO SCH (09:00)
[2021-06-08] MEDS: CLOPIDOGREL BISULFATE 75 MG TAB PO SCH (09:00)
[2021-06-08] MEDS: METOPROLOL SUCCINATE 50 MG TAB XL PO SCH ×2 (09:00→17:00)
[2021-06-08] MEDS: FLUPHENAZINE 2.5 MG PO SCH (09:00)
[2021-06-08] MEDS: RANOLAZINE 500 MG TABSR PO SCH ×2 (09:00→17:00)
[2021-06-08] MEDS: DOCUSATE SODIUM 100 MG CAP PO SCH ×2 (09:00→17:00)
[2021-06-08 11:46] VITALS: BP 147/82
[2021-06-08 15:50] VITALS: BP 161/75
[2021-06-08] MEDS: BUPROPION HCL 150 MG TABCR PO SCH (17:00)
[2021-06-08 20:00] VITALS: BP 161/77
[2021-06-08] MEDS: SIMVASTATIN 20 MG TAB PO SCH (21:00)
[2021-06-08] MEDS: INSULIN GLARGINE 100 UNITS/ML VIAL SQ SCH (21:00)
[2021-06-09] VITALS (7 sets, daily range): BP systolic 133–185; BP diastolic 54–81
[2021-06-09] MEDS: ALBUTEROL/IPRATROPIUM 3 ML NEB NEB SCH ×6 (02:54→22:35)
[2021-06-09] MEDS: LEVOTHYROXINE SODIUM 75 MCG TAB PO SCH (05:36)
[2021-06-09] MEDS: LEVOTHYROXINE SODIUM 100 MCG TAB PO SCH (05:36)
[2021-06-09] MEDS: HYDRALAZINE HCL 20 MG/ML VIAL IV PRN (06:27)
[2021-06-09 06:51] LABS: BASOPHILS # (AUTO) 0.1 (0.0-0.1); BASOPHILS % 0.6 % (0.0-1.0); EOSINOPHILS # (AUTO) 0.1 (0.0-0.4); EOSINOPHILS % 1.3 % (0.0-6.0); HEMATOCRIT 38.5 % (34.2-44.1); HEMOGLOBIN 12.8 g/dL (12.0-16.0); LYMPHOCYTES # (AUTO) 2.6 (1.0-3.2); LYMPHOCYTES % 30.4 % (18.0-39.1); MEAN CORPUSCULAR HEMOGLOBIN 31.5 pg (28-32); MEAN CORPUSCULAR HGB CONC 33.2 g/dL (31-35); MEAN CORPUSCULAR VOLUME 94.8 fL (81-99); MONOCYTES # (AUTO) 0.8 (0.2-0.8); MONOCYTES % 9.3 % (4.4-11.3); NEUTROPHILS # (AUTO) 4.9 (2.1-6.9); NEUTROPHILS % 57.5 % (38.7-80.0); PLATELET COUNT 262 x10e3/uL (140-360); RED BLOOD COUNT 4.06 x10e6/uL (3.6-5.1); RED CELL DISTRIBUTION WIDTH 12.4 % (11.7-14.4)
[2021-06-09] MEDS: TRAMADOL HCL 50 MG TAB PO PRN ×2 (07:07→20:46)
[2021-06-09] MEDS: GUAIFENESIN 200 MG/10 ML UDC PO PRN ×2 (07:20→20:46)
[2021-06-09 07:22] LABS: ALBUMIN 3.3 g/dL (3.5-5.0); ALBUMIN/GLOBULIN RATIO 1.1 (0.8-2.0); ANION GAP 11.9 mmol/L (8-16); CALCIUM 9.3 mg/dL (8.4-10.2); CREATININE, SERUM 1.48 mg/dL (0.57-1.11); POTASSIUM 3.9 mmol/L (3.5-5.1)
[2021-06-09] MEDS ORDERED: TROLAMINE SALICYLATE 35.4 GM CR TP PRN (10:00)
[2021-06-09] MEDS: FAMOTIDINE 20 MG TAB PO SCH ×2 (11:46→16:30)
[2021-06-09] MEDS: DOCUSATE SODIUM 100 MG CAP PO SCH ×2 (11:48→17:00)
[2021-06-09] MEDS: MEMANTINE 10 MG TAB PO SCH (11:48)
[2021-06-09] MEDS: RANOLAZINE 500 MG TABSR PO SCH ×2 (11:48→17:00)
[2021-06-09] MEDS: INSULIN REGULAR, HUMAN 100 UNIT/1 ML SQ SCH ×4 (11:48→20:52)
[2021-06-09] MEDS: FLUPHENAZINE 2.5 MG PO SCH (11:48)
[2021-06-09] MEDS: CLOPIDOGREL BISULFATE 75 MG TAB PO SCH (11:48)
[2021-06-09] MEDS: ASPIRIN 81 MG CHEW TAB PO SCH (11:48)
[2021-06-09] MEDS: BUPROPION HCL 150 MG TABCR PO SCH (11:49)
[2021-06-09] MEDS: METOPROLOL SUCCINATE 50 MG TAB XL PO SCH ×2 (11:49→17:00)
[2021-06-09] MEDS: SIMVASTATIN 20 MG TAB PO SCH (20:49)
[2021-06-09] MEDS: INSULIN GLARGINE 100 UNITS/ML VIAL SQ SCH (20:55)
[2021-06-10] VITALS (7 sets, daily range): BP systolic 115–146; BP diastolic 43–64
[2021-06-10] MEDS: TRAMADOL HCL 50 MG TAB PO PRN (05:00)
[2021-06-10 05:40] LABS: BASOPHILS # (AUTO) 0.1 (0.0-0.1); BASOPHILS % 0.5 % (0.0-1.0); EOSINOPHILS # (AUTO) 0.2 (0.0-0.4); EOSINOPHILS % 1.4 % (0.0-6.0); HEMATOCRIT 37.4 % (34.2-44.1); HEMOGLOBIN 12.5 g/dL (12.0-16.0); LYMPHOCYTES # (AUTO) 2.4 (1.0-3.2); LYMPHOCYTES % 22.4 % (18.0-39.1); MEAN CORPUSCULAR HGB CONC 33.4 g/dL (31-35); MEAN CORPUSCULAR VOLUME 92.8 fL (81-99); MONOCYTES # (AUTO) 0.9 (0.2-0.8); MONOCYTES % 8.7 % (4.4-11.3); NEUTROPHILS % 66.2 % (38.7-80.0); PLATELET COUNT 270 x10e3/uL (140-360); RED BLOOD COUNT 4.03 x10e6/uL (3.6-5.1); RED CELL DISTRIBUTION WIDTH 12.4 % (11.7-14.4)
[2021-06-10] MEDS: LEVOTHYROXINE SODIUM 100 MCG TAB PO SCH (05:56)
[2021-06-10] MEDS: LEVOTHYROXINE SODIUM 75 MCG TAB PO SCH (05:56)
[2021-06-10 06:16] LABS: ALBUMIN 3.4 g/dL (3.5-5.0); ALBUMIN/GLOBULIN RATIO 1.1 (0.8-2.0); ANION GAP 12.9 mmol/L (8-16); CALCIUM 9.4 mg/dL (8.4-10.2); CREATININE, SERUM 1.36 mg/dL (0.57-1.11); POTASSIUM 3.9 mmol/L (3.5-5.1)
[2021-06-10] MEDS: ALBUTEROL/IPRATROPIUM 3 ML NEB NEB SCH ×4 (07:16→19:08)
[2021-06-10] MEDS: INSULIN REGULAR, HUMAN 100 UNIT/1 ML SQ SCH ×4 (08:30→21:47)
[2021-06-10] MEDS: FAMOTIDINE 20 MG TAB PO SCH ×2 (08:33→17:21)
[2021-06-10] MEDS: DOCUSATE SODIUM 100 MG CAP PO SCH ×2 (08:33→17:21)
[2021-06-10] MEDS: ASPIRIN 81 MG CHEW TAB PO SCH (08:33)
[2021-06-10] MEDS: CLOPIDOGREL BISULFATE 75 MG TAB PO SCH (08:33)
[2021-06-10] MEDS: MEMANTINE 10 MG TAB PO SCH (08:33)
[2021-06-10] MEDS: BUPROPION HCL 150 MG TABCR PO SCH (08:34)
[2021-06-10] MEDS: RANOLAZINE 500 MG TABSR PO SCH ×2 (08:34→17:22)
[2021-06-10] MEDS: METOPROLOL SUCCINATE 50 MG TAB XL PO SCH ×2 (08:34→17:22)
[2021-06-10] MEDS ORDERED: TRIHEXYPHENIDYL 5 MG PO SCH (10:00)
[2021-06-10] MEDS: FLUPHENAZINE 2.5 MG PO SCH (10:23)
[2021-06-10] MEDS: GUAIFENESIN 200 MG/10 ML UDC PO PRN (21:30)
[2021-06-10] MEDS: SIMVASTATIN 20 MG TAB PO SCH (21:30)
[2021-06-10] MEDS: INSULIN GLARGINE 100 UNITS/ML VIAL SQ SCH (21:48)
[2021-06-11] VITALS (10 sets, daily range): BP systolic 133–161; BP diastolic 44–65
[2021-06-11] MEDS: ALBUTEROL/IPRATROPIUM 3 ML NEB NEB SCH ×3 (00:12→07:15)
[2021-06-11 05:48] LABS: BASOPHILS % 0.5 % (0.0-1.0); EOSINOPHILS # (AUTO) 0.1 (0.0-0.4); EOSINOPHILS % 1.3 % (0.0-6.0); HEMATOCRIT 34.4 % (34.2-44.1); HEMOGLOBIN 11.3 g/dL (12.0-16.0); LYMPHOCYTES # (AUTO) 2.4 (1.0-3.2); LYMPHOCYTES % 29.7 % (18.0-39.1); MEAN CORPUSCULAR HGB CONC 32.8 g/dL (31-35); MEAN CORPUSCULAR VOLUME 94.5 fL (81-99); MONOCYTES # (AUTO) 0.7 (0.2-0.8); MONOCYTES % 8.6 % (4.4-11.3); NEUTROPHILS # (AUTO) 4.7 (2.1-6.9); NEUTROPHILS % 59.1 % (38.7-80.0); PLATELET COUNT 234 x10e3/uL (140-360); RED BLOOD COUNT 3.64 x10e6/uL (3.6-5.1); RED CELL DISTRIBUTION WIDTH 12.4 % (11.7-14.4)
[2021-06-11] MEDS: LEVOTHYROXINE SODIUM 100 MCG TAB PO SCH (06:08)
[2021-06-11] MEDS: LEVOTHYROXINE SODIUM 75 MCG TAB PO SCH (06:08)
[2021-06-11 06:32] LABS: ALBUMIN/GLOBULIN RATIO 1.1 (0.8-2.0); CREATININE, SERUM 1.31 mg/dL (0.57-1.11)
[2021-06-11] MEDS: INSULIN REGULAR, HUMAN 100 UNIT/1 ML SQ SCH ×4 (07:30→22:08)
[2021-06-11] MEDS: METOPROLOL SUCCINATE 50 MG TAB XL PO SCH ×2 (09:02→16:52)
[2021-06-11] MEDS: CLOPIDOGREL BISULFATE 75 MG TAB PO SCH (09:02)
[2021-06-11] MEDS: ASPIRIN 81 MG CHEW TAB PO SCH (09:02)
[2021-06-11] MEDS: DOCUSATE SODIUM 100 MG CAP PO SCH ×2 (09:02→16:52)
[2021-06-11] MEDS: FLUPHENAZINE 2.5 MG PO SCH (09:02)
[2021-06-11] MEDS: RANOLAZINE 500 MG TABSR PO SCH ×2 (09:02→16:52)
[2021-06-11] MEDS: BUPROPION HCL 150 MG TABCR PO SCH (09:02)
[2021-06-11] MEDS: MEMANTINE 10 MG TAB PO SCH (09:02)
[2021-06-11] MEDS: FAMOTIDINE 20 MG TAB PO SCH ×2 (09:02→16:52)
[2021-06-11] MEDS ORDERED: ALBUTEROL/IPRATROPIUM 3 ML NEB NEB PRN (10:45)
[2021-06-11] MEDS ORDERED: TRAMADOL HCL 50 MG TAB PO PRN (12:15)
[2021-06-11] MEDS: SIMVASTATIN 20 MG TAB PO SCH (22:06)
[2021-06-11] MEDS: INSULIN GLARGINE 100 UNITS/ML VIAL SQ SCH (22:08)
[2021-06-12 03:43] VITALS: BP 112/61
[2021-06-12] MEDS: LEVOTHYROXINE SODIUM 100 MCG TAB PO SCH (05:19)
[2021-06-12] MEDS: LEVOTHYROXINE SODIUM 75 MCG TAB PO SCH (05:19)
[2021-06-12 06:09] LABS: BASOPHILS # (AUTO) 0.1 (0.0-0.1); BASOPHILS % 0.6 % (0.0-1.0); EOSINOPHILS # (AUTO) 0.1 (0.0-0.4); EOSINOPHILS % 1.8 % (0.0-6.0); HEMATOCRIT 33.8 % (34.2-44.1); HEMOGLOBIN 11.1 g/dL (12.0-16.0); LYMPHOCYTES # (AUTO) 2.2 (1.0-3.2); LYMPHOCYTES % 27.9 % (18.0-39.1); MEAN CORPUSCULAR HEMOGLOBIN 31.4 pg (28-32); MEAN CORPUSCULAR HGB CONC 32.8 g/dL (31-35); MEAN CORPUSCULAR VOLUME 95.8 fL (81-99); MONOCYTES # (AUTO) 0.7 (0.2-0.8); MONOCYTES % 8.5 % (4.4-11.3); NEUTROPHILS # (AUTO) 4.7 (2.1-6.9); NEUTROPHILS % 60.6 % (38.7-80.0); PLATELET COUNT 233 x10e3/uL (140-360); RED BLOOD COUNT 3.53 x10e6/uL (3.6-5.1); RED CELL DISTRIBUTION WIDTH 12.5 % (11.7-14.4)
[2021-06-12 06:44] LABS: ALBUMIN/GLOBULIN RATIO 1.1 (0.8-2.0); ANION GAP 11.1 mmol/L (8-16); CALCIUM 8.7 mg/dL (8.4-10.2); CREATININE, SERUM 1.21 mg/dL (0.57-1.11); POTASSIUM 4.1 mmol/L (3.5-5.1)
[2021-06-12] MEDS: INSULIN REGULAR, HUMAN 100 UNIT/1 ML SQ SCH (07:30)
[2021-06-12 08:13] VITALS: BP 149/58
[2021-06-12 08:46] VITALS: BP 149/58
[2021-06-12] MEDS: DOCUSATE SODIUM 100 MG CAP PO SCH (08:53)
[2021-06-12] MEDS: CLOPIDOGREL BISULFATE 75 MG TAB PO SCH (08:53)
[2021-06-12] MEDS: FLUPHENAZINE 2.5 MG PO SCH (08:53)
[2021-06-12] MEDS: ASPIRIN 81 MG CHEW TAB PO SCH (08:53)
[2021-06-12] MEDS: FAMOTIDINE 20 MG TAB PO SCH (08:53)
[2021-06-12] MEDS: MEMANTINE 10 MG TAB PO SCH (08:53)
[2021-06-12] MEDS: METOPROLOL SUCCINATE 50 MG TAB XL PO SCH (08:54)
[2021-06-12] MEDS: RANOLAZINE 500 MG TABSR PO SCH (08:54)
[2021-06-12] MEDS: BUPROPION HCL 150 MG TABCR PO SCH (08:54)
[2021-06-12] MEDS ORDERED: BALSAM PERU/CASTOR OIL 60 GM OINT...G. TP SCH (09:00)
[2021-06-12 11:41] VITALS: BP 156/65
[2021-06-12] MEDS ORDERED: SYNTHROID75 MCG PO (13:03)
[2021-06-12] MEDS ORDERED: SYNTHROID100 MCG PO (13:03)
[2021-06-12] MEDS ORDERED: METOPROLOL SUCC50 MG PO (13:08)
[2021-06-12] MEDS: ACETAMINOPHEN 325 MG TAB PO PRN (13:15)
== END 2021-06-12 16:30 | disposition home health service (06) | DRG 698 ==
LOC: ER 11:20 → ERHOLD 15:04 → MED/SURG3 16:08
PROVIDERS: ADMIT Internal Medicine; ATTEND Internal Medicine
DX: T83.510A Infection and inflammatory reaction due to cystostomy catheter, initial encounter (principal); G93.41 Metabolic encephalopathy; J44.1 Chronic obstructive pulmonary disease with (acute) exacerbation; N17.9 Acute kidney failure, unspecified; N39.0 Urinary tract infection, site not specified; R47.01 Aphasia; E03.9 Hypothyroidism, unspecified; Z74.09 Other reduced mobility; E11.65 Type 2 diabetes mellitus with hyperglycemia; K76.0 Fatty (change of) liver, not elsewhere classified; F20.9 Schizophrenia, unspecified; G30.9 Alzheimer's disease, unspecified; F02.80 Dementia in other diseases classified elsewhere, unspecified severity, without behavioral disturbance, psychotic disturbance, mood disturbance, and anxiety; I25.10 Atherosclerotic heart disease of native coronary artery without angina pectoris; Z95.5 Presence of coronary angioplasty implant and graft; J20.9 Acute bronchitis, unspecified; Z85.850 Personal history of malignant neoplasm of thyroid; Z86.16 Personal history of COVID-19; F31.9 Bipolar disorder, unspecified; R62.7 Adult failure to thrive; Z68.35 Body mass index [BMI] 35.0-35.9, adult; B96.89 Other specified bacterial agents as the cause of diseases classified elsewhere; I12.9 Hypertensive chronic kidney disease with stage 1 through stage 4 chronic kidney disease, or unspecified chronic kidney disease; N18.9 Chronic kidney disease, unspecified; B19.20 Unspecified viral hepatitis C without hepatic coma; N18.30 Chronic kidney disease, stage 3 unspecified; Z87.891 Personal history of nicotine dependence; G89.29 Other chronic pain; M54.9 Dorsalgia, unspecified; L27.1 Localized skin eruption due to drugs and medicaments taken internally
CPT/HCPCS: 36415; 36600; 70450; 70551; 71045; 74018; 74230; 76770; 80048; 80053; 80061; 81001; 82140; 82550; 82553; 82805; 82948; 83036; 83735; 83880; 84100; 84165; 84443; 84484; 85025; 85610; 85730; 87040; 87086; 87186; 93005; 94640; 94799; 96361; 97139; 99251; 99285; J0360; J0456; J0696; J1100; J1815; J1817; J1956; J2930; J7030; J7040; J7050; J7121; Q0162; U0002

== ENCOUNTER 2021-09-26 15:22 | Inpatient (IN) | payer MEDICARE ==
[~2021-09-26] VITALS: Ht 165.1 cm; Wt 104.0 kg
[~2021-09-26 15:22] MED LIST changes: +MELOXICAM15 MG PO; +SYNTHROID100 MCG PO; +SYNTHROID75 MCG PO
[2021-09-26] MEDS ORDERED: SODIUM CHLORIDE 0.9% 1000ML 1,000 ML IV ONE ×2 (16:00→20:00)
[2021-09-26] MEDS ORDERED: SODIUM CHLORIDE 0.9% IV ONE (16:15)
[2021-09-26 16:19] LABS: BASOPHILS % 0.4 % (0.0-1.0); EOSINOPHILS % 0.5 % (0.0-6.0); HEMATOCRIT 33.9 % (34.2-44.1); HEMOGLOBIN 11.1 g/dL (12.0-16.0); LYMPHOCYTES # (AUTO) 0.4 (1.0-3.2); LYMPHOCYTES % 5.1 % (18.0-39.1); MEAN CORPUSCULAR HEMOGLOBIN 30.7 pg (28-32); MEAN CORPUSCULAR HGB CONC 32.7 g/dL (31-35); MEAN CORPUSCULAR VOLUME 93.9 fL (81-99); MONOCYTES # (AUTO) 0.5 (0.2-0.8); MONOCYTES % 5.9 % (4.4-11.3); NEUTROPHILS # (AUTO) 6.5 (2.1-6.9); NEUTROPHILS % 85.1 % (38.7-80.0); PLATELET COUNT 171 x10e3/uL (140-360); RED BLOOD COUNT 3.61 x10e6/uL (3.6-5.1); RED CELL DISTRIBUTION WIDTH 13.1 % (11.7-14.4)
[2021-09-26 16:31] LABS: CLARITY,URINE TURBID (CLEAR); COLOR,URINE YELLOW (YELLOW); KETONES,URINE NEGATIVE (NEGATIVE); LEUKOCYTE ESTERASE ,URINE 2+ (NEGATIVE); NITRITE,URINE POSITIVE (NEGATIVE); PROTEIN,URINE DIPSTICK >=300 (NEGATIVE); URINE UROBILINOGEN 4 mg/dL (0.2 - 1)
[2021-09-26 16:32] LABS: ABG HCO3 27 mmol/L (22-26); ABG PCO2 43 mmHg (35-45); ABG PH 7.41 (7.35-7.45); ABG PO2 103 mmHg (80-105); ABG TCO2 28
[2021-09-26 16:37] LABS: ALBUMIN 2.7 g/dL (3.5-5.0); ALBUMIN/GLOBULIN RATIO 0.8 (0.8-2.0); ANION GAP 15.7 mmol/L (8-16); CALCIUM 8.4 mg/dL (8.4-10.2); CREATININE, SERUM 1.76 mg/dL (0.57-1.11); POTASSIUM 4.7 mmol/L (3.5-5.1)
[2021-09-26 16:42] LABS: BACTERIA,URINE MANY /HPF; EPITHELIAL CELLS,URINE FEW /LPF; WBC,URINE (MAN) >50 /HPF (0-5)
[2021-09-26] MEDS: ACETAMINOPHEN 650 MG SUPP PR PRN (16:45)
[2021-09-26] MEDS ORDERED: SODIUM CHLORIDE FLUSH 10 ML SYR INJ PRN (17:45)
[2021-09-26] MEDS: MEROPENEM 1 GM in SODIUM CHLORIDE 0.9% 100 ML IV SCH (19:24)
[2021-09-26] MEDS ORDERED: SODIUM CHLORIDE 0.9% 1000ML 1,000 ML ONE (19:34)
[2021-09-26 23:45] VITALS: BP 113/56
[2021-09-27] VITALS (22 sets, daily range): BP systolic 91–149; BP diastolic 44–116
[2021-09-27] MEDS: ACETAMINOPHEN 650 MG SUPP PR PRN ×2 (03:25→14:28)
[2021-09-27] MEDS: ONDANSETRON HCL INJ 2MG/ML 2ML 2 MG/ML VIAL IV PRN (03:30)
[2021-09-27 05:01] LABS: BASOPHILS % 0.2 % (0.0-1.0); EOSINOPHILS % 0.2 % (0.0-6.0); HEMATOCRIT 31.9 % (34.2-44.1); HEMOGLOBIN 10.3 g/dL (12.0-16.0); LYMPHOCYTES # (AUTO) 0.6 (1.0-3.2); LYMPHOCYTES % 5.7 % (18.0-39.1); MEAN CORPUSCULAR HEMOGLOBIN 30.6 pg (28-32); MEAN CORPUSCULAR HGB CONC 32.3 g/dL (31-35); MEAN CORPUSCULAR VOLUME 94.7 fL (81-99); MONOCYTES # (AUTO) 1.1 (0.2-0.8); MONOCYTES % 9.9 % (4.4-11.3); NEUTROPHILS # (AUTO) 8.6 (2.1-6.9); NEUTROPHILS % 80.9 % (38.7-80.0); PLATELET COUNT 135 x10e3/uL (140-360); RED BLOOD COUNT 3.37 x10e6/uL (3.6-5.1); RED CELL DISTRIBUTION WIDTH 13.3 % (11.7-14.4)
[2021-09-27 05:19] LABS: ANION GAP 13.3 mmol/L (8-16); CALCIUM 7.6 mg/dL (8.4-10.2); CREATININE, SERUM 1.78 mg/dL (0.57-1.11); POTASSIUM 4.3 mmol/L (3.5-5.1)
[2021-09-27] MEDS: MEROPENEM 1 GM in SODIUM CHLORIDE 0.9% 100 ML IV SCH ×2 (05:32→16:58)
[2021-09-27 09:23] LABS: BAND NEUTROPHILS % (MANUAL) 6 %; METAMYELOCYTES % (MANUAL) 2 % (0-0); MONOCYTES % (MANUAL) 10 % (3.4-9.0); MYELOCYTES % (MANUAL) 1 % (0-0); NEUTROPHILS % (MANUAL) 81 % (40-74)
[2021-09-27 09:24] LABS: PLATELET ESTIMATE SLIGHTLY DECREASED; PLATELET MORPHOLOGY COMMENT NORMAL; RBC MORPHOLOGY COMMENT NORMAL
[2021-09-27] MEDS ORDERED: DEXTROSE 50% SYRINGE 50 ML IV PRN (11:15)
[2021-09-27] MEDS: INSULIN LISPRO 100 UNIT/1 ML 3ML VIAL SQ SCH ×3 (11:30→21:00)
[2021-09-27] MEDS ORDERED: INSULIN LISPRO 100 UNIT/1 ML 3ML VIAL SQ ONE (11:45)
[2021-09-27] MEDS ORDERED: ALBUTEROL SULFATE HFA 8GM INHALATION AEROSOL INH PRN (12:45)
[2021-09-27] MEDS: METFORMIN HCL 500 MG TAB PO SCH (16:57)
[2021-09-27] MEDS ORDERED: SODIUM CHLORIDE 0.9% 100 ML ONE (17:14)
[2021-09-27] MEDS: FLUPHENAZINE HCL 2.5 MG PO SCH (21:28)
[2021-09-27] MEDS: GABAPENTIN 300 MG CAP PO SCH (21:28)
[2021-09-27] MEDS: SIMVASTATIN 20 MG TAB PO SCH (21:28)
[2021-09-28] VITALS (8 sets, daily range): BP systolic 126–169; BP diastolic 59–75
[2021-09-28] MEDS: FLUPHENAZINE HCL 2.5 MG PO SCH ×4 (05:43→20:52)
[2021-09-28] MEDS: LEVOTHYROXINE SODIUM 100 MCG TAB PO SCH (05:45)
[2021-09-28] MEDS: MEROPENEM 1 GM in SODIUM CHLORIDE 0.9% 100 ML IV SCH ×2 (05:48→17:01)
[2021-09-28 06:11] LABS: BASOPHILS % 0.2 % (0.0-1.0); EOSINOPHILS # (AUTO) 0.1 (0.0-0.4); EOSINOPHILS % 1.2 % (0.0-6.0); HEMOGLOBIN 9.8 g/dL (12.0-16.0); LYMPHOCYTES # (AUTO) 1.1 (1.0-3.2); LYMPHOCYTES % 10.1 % (18.0-39.1); MEAN CORPUSCULAR HEMOGLOBIN 30.9 pg (28-32); MEAN CORPUSCULAR HGB CONC 32.7 g/dL (31-35); MEAN CORPUSCULAR VOLUME 94.6 fL (81-99); MONOCYTES % 9.2 % (4.4-11.3); NEUTROPHILS # (AUTO) 8.5 (2.1-6.9); NEUTROPHILS % 78.6 % (38.7-80.0); PLATELET COUNT 142 x10e3/uL (140-360); RED BLOOD COUNT 3.17 x10e6/uL (3.6-5.1); RED CELL DISTRIBUTION WIDTH 13.2 % (11.7-14.4)
[2021-09-28 06:37] LABS: ANION GAP 14.2 mmol/L (8-16); CALCIUM 7.8 mg/dL (8.4-10.2); CREATININE, SERUM 1.63 mg/dL (0.57-1.11); POTASSIUM 4.2 mmol/L (3.5-5.1)
[2021-09-28] MEDS: INSULIN LISPRO 100 UNIT/1 ML 3ML VIAL SQ SCH ×4 (07:30→20:48)
[2021-09-28] MEDS: MEMANTINE 10 MG TAB PO SCH (10:20)
[2021-09-28] MEDS: GLIMEPIRIDE 2 MG TAB PO SCH (10:21)
[2021-09-28] MEDS: METFORMIN HCL 500 MG TAB PO SCH ×2 (10:21→17:01)
[2021-09-28] MEDS: ASPIRIN 81 MG CHEW TAB PO SCH (10:21)
[2021-09-28] MEDS: TRIHEXYPHENIDYL 5 MG PO SCH (10:34)
[2021-09-28] MEDS: BUPROPION HCL 150 MG TABCR PO SCH (10:34)
[2021-09-28] MEDS ORDERED: ACETAMINOPHEN 325 MG TAB PO PRN (11:45)
[2021-09-28] MEDS: DICLOFENAC SOD 1% GEL 100 GM TUBE TP SCH ×2 (18:51→20:25)
[2021-09-28] MEDS: METOPROLOL SUCCINATE 25 MG TAB XL PO SCH (20:20)
[2021-09-28] MEDS: GABAPENTIN 300 MG CAP PO SCH (20:20)
[2021-09-28] MEDS: SIMVASTATIN 20 MG TAB PO SCH (20:21)
[2021-09-28] MEDS: ONDANSETRON HCL INJ 2MG/ML 2ML 2 MG/ML VIAL IV PRN (21:30)
[2021-09-29] VITALS (8 sets, daily range): BP systolic 142–162; BP diastolic 62–77
[2021-09-29] MEDS: LEVOTHYROXINE SODIUM 100 MCG TAB PO SCH (05:16)
[2021-09-29] MEDS: MEROPENEM 1 GM in SODIUM CHLORIDE 0.9% 100 ML IV SCH ×2 (05:21→17:08)
[2021-09-29] MEDS: INSULIN LISPRO 100 UNIT/1 ML 3ML VIAL SQ SCH ×4 (07:30→20:49)
[2021-09-29] MEDS ORDERED: METOPROLOL SUCCINATE 25 MG TAB XL PO SCH (09:00)
[2021-09-29] MEDS: METFORMIN HCL 500 MG TAB PO SCH ×2 (10:36→17:08)
[2021-09-29] MEDS: ASPIRIN 81 MG CHEW TAB PO SCH (10:36)
[2021-09-29] MEDS: CLOPIDOGREL BISULFATE 75 MG TAB PO SCH (10:36)
[2021-09-29] MEDS: GLIMEPIRIDE 2 MG TAB PO SCH (10:37)
[2021-09-29] MEDS: MEMANTINE 10 MG TAB PO SCH (10:38)
[2021-09-29] MEDS: BUPROPION HCL 150 MG TABCR PO SCH (10:38)
[2021-09-29] MEDS: TRIHEXYPHENIDYL 5 MG PO SCH (10:38)
[2021-09-29] MEDS: DICLOFENAC SOD 1% GEL 100 GM TUBE TP SCH ×4 (11:09→20:52)
[2021-09-29] MEDS: FLUPHENAZINE HCL 2.5 MG PO SCH ×3 (14:16→20:52)
[2021-09-29] MEDS: METOPROLOL SUCCINATE 25 MG TAB XL PO SCH (20:40)
[2021-09-29] MEDS: SIMVASTATIN 20 MG TAB PO SCH (20:44)
[2021-09-29] MEDS: GABAPENTIN 300 MG CAP PO SCH (20:44)
[2021-09-29] MEDS: NYSTATIN SUSPENSION 5 ML UDC PO SCH ×2 (21:47→23:03)
[2021-09-30] VITALS: BP 141/62
[2021-09-30 04:00] VITALS: BP 136/61
[2021-09-30] MEDS: NYSTATIN SUSPENSION 5 ML UDC PO SCH (05:23)
[2021-09-30] MEDS: MEROPENEM 1 GM in SODIUM CHLORIDE 0.9% 100 ML IV SCH (05:23)
[2021-09-30] MEDS: LEVOTHYROXINE SODIUM 100 MCG TAB PO SCH (05:24)
[2021-09-30 06:01] LABS: BASOPHILS # (AUTO) 0.1 (0.0-0.1); BASOPHILS % 0.7 % (0.0-1.0); EOSINOPHILS # (AUTO) 0.1 (0.0-0.4); EOSINOPHILS % 1.2 % (0.0-6.0); HEMATOCRIT 31.3 % (34.2-44.1); HEMOGLOBIN 10.3 g/dL (12.0-16.0); LYMPHOCYTES # (AUTO) 1.3 (1.0-3.2); LYMPHOCYTES % 19.2 % (18.0-39.1); MEAN CORPUSCULAR HGB CONC 32.9 g/dL (31-35); MEAN CORPUSCULAR VOLUME 94.3 fL (81-99); MONOCYTES # (AUTO) 0.6 (0.2-0.8); MONOCYTES % 9.4 % (4.4-11.3); NEUTROPHILS # (AUTO) 4.6 (2.1-6.9); NEUTROPHILS % 67.3 % (38.7-80.0); PLATELET COUNT 167 x10e3/uL (140-360); RED BLOOD COUNT 3.32 x10e6/uL (3.6-5.1); RED CELL DISTRIBUTION WIDTH 13.1 % (11.7-14.4)
[2021-09-30 06:30] LABS: ANION GAP 15.2 mmol/L (8-16); CALCIUM 8.2 mg/dL (8.4-10.2); CREATININE, SERUM 1.56 mg/dL (0.57-1.11); POTASSIUM 4.2 mmol/L (3.5-5.1)
[2021-09-30] MEDS: INSULIN LISPRO 100 UNIT/1 ML 3ML VIAL SQ SCH ×2 (07:30→11:30)
[2021-09-30 08:15] VITALS: BP 136/61
[2021-09-30 08:21] VITALS: BP 135/54
[2021-09-30] MEDS ORDERED: LACTOBACILLUS ACIDOPHILUS CAPSULE PO SCH (09:00)
[2021-09-30] MEDS: ASPIRIN 81 MG CHEW TAB PO SCH (09:24)
[2021-09-30] MEDS: BUPROPION HCL 150 MG TABCR PO SCH (09:25)
[2021-09-30] MEDS: MEMANTINE 10 MG TAB PO SCH (09:25)
[2021-09-30] MEDS: METFORMIN HCL 500 MG TAB PO SCH (09:26)
[2021-09-30] MEDS: CLOPIDOGREL BISULFATE 75 MG TAB PO SCH (09:26)
[2021-09-30] MEDS: GLIMEPIRIDE 2 MG TAB PO SCH (09:27)
[2021-09-30] MEDS: ONDANSETRON HCL INJ 2MG/ML 2ML 2 MG/ML VIAL IV PRN (10:29)
[2021-09-30] MEDS: DICLOFENAC SOD 1% GEL 100 GM TUBE TP SCH ×2 (10:29→13:06)
[2021-09-30] MEDS: TRIHEXYPHENIDYL 5 MG PO SCH (10:30)
[2021-09-30 11:24] VITALS: BP 165/83
== END 2021-09-30 13:29 | DRG 698 ==
LOC: ER 17:36 → ERHOLD 17:37 → ICU 23:47 → MED/SURG2 09-27 16:02
PROVIDERS: ADMIT Internal Medicine; ATTEND Internal Medicine
PROC: 3E03329 Introduction of Other Anti-infective into Peripheral Vein, Percutaneous Approach (ICD-10-PCS; 2021-09-28)
PROC: 02HV33Z Insertion of Infusion Device into Superior Vena Cava, Percutaneous Approach (ICD-10-PCS; principal; 2021-09-30)
DX: T83.510A Infection and inflammatory reaction due to cystostomy catheter, initial encounter (principal); A41.9 Sepsis, unspecified organism; G93.41 Metabolic encephalopathy; R65.20 Severe sepsis without septic shock; E11.65 Type 2 diabetes mellitus with hyperglycemia; E11.22 Type 2 diabetes mellitus with diabetic chronic kidney disease; R33.9 Retention of urine, unspecified; I25.10 Atherosclerotic heart disease of native coronary artery without angina pectoris; Z95.5 Presence of coronary angioplasty implant and graft; E03.9 Hypothyroidism, unspecified; Z86.73 Personal history of transient ischemic attack (TIA), and cerebral infarction without residual deficits; F25.0 Schizoaffective disorder, bipolar type; E66.01 Morbid (severe) obesity due to excess calories; Z68.38 Body mass index [BMI] 38.0-38.9, adult; F09 Unspecified mental disorder due to known physiological condition; Z86.16 Personal history of COVID-19; Z20.822 Contact with and (suspected) exposure to COVID-19
CPT/HCPCS: 36415; 36569; 36600; 70450; 71045; 80048; 80053; 81001; 82140; 82805; 82948; 83605; 84484; 85025; 87040; 87071; 87086; 87186; 87205; 93005; 94799; 99285; J0696; J2185; J2405; J7030; J7050

== ENCOUNTER 2021-10-23 07:57 | Inpatient (IN) | payer MEDICARE ==
[~2021-10-23] VITALS: Ht 165.1 cm; Wt 103.9 kg
[2021-10-23] MEDS ORDERED: LACTATED RINGER'S 1,000 ML INJ ONE (08:15)
[2021-10-23 08:26] LABS: BASOPHILS % 0.2 % (0.0-1.0); EOSINOPHILS % 0.2 % (0.0-6.0); HEMATOCRIT 34.4 % (34.2-44.1); HEMOGLOBIN 11.3 g/dL (12.0-16.0); LYMPHOCYTES # (AUTO) 0.9 (1.0-3.2); LYMPHOCYTES % 9.6 % (18.0-39.1); MEAN CORPUSCULAR HEMOGLOBIN 31.1 pg (28-32); MEAN CORPUSCULAR HGB CONC 32.8 g/dL (31-35); MEAN CORPUSCULAR VOLUME 94.8 fL (81-99); MONOCYTES # (AUTO) 0.9 (0.2-0.8); MONOCYTES % 10.4 % (4.4-11.3); NEUTROPHILS # (AUTO) 7.1 (2.1-6.9); NEUTROPHILS % 79.3 % (38.7-80.0); PLATELET COUNT 216 x10e3/uL (140-360); RED BLOOD COUNT 3.63 x10e6/uL (3.6-5.1); RED CELL DISTRIBUTION WIDTH 13.5 % (11.7-14.4)
[2021-10-23 08:44] LABS: ALBUMIN/GLOBULIN RATIO 0.8 (0.8-2.0); CALCIUM 8.9 mg/dL (8.4-10.2); CREATININE, SERUM 1.89 mg/dL (0.57-1.11)
[2021-10-23 09:42] LABS: CLARITY,URINE TURBID (CLEAR); COLOR,URINE YELLOW (YELLOW)
[2021-10-23] MEDS ORDERED: SIMETHICONE 40 MG/0.6 ML BTL PO ONE (09:45)
[2021-10-23 09:47] LABS: KETONES,URINE NEGATIVE (NEGATIVE); LEUKOCYTE ESTERASE ,URINE LARGE (NEGATIVE); NITRITE,URINE POSITIVE (NEGATIVE); PROTEIN,URINE DIPSTICK TRACE (NEGATIVE); URINE UROBILINOGEN 0.2 mg/dL (0.2 - 1)
[2021-10-23 09:50] LABS: BACTERIA,URINE MANY /HPF; RBC,URINE 0-5 /HPF (0-5); WBC,URINE (MAN) >50 /HPF (0-5)
[2021-10-23 09:51] LABS: RENAL EPITHELIAL CELLS,URINE RARE
[2021-10-23 09:52] LABS: EPITHELIAL CELLS,URINE FEW /LPF
[2021-10-23] MEDS ORDERED: TYLENOL325 MG PO (09:53)
[2021-10-23] MEDS ORDERED: METOPROLOL SUCC25 MG PO (09:53)
[2021-10-23] MEDS ORDERED: LOSARTAN POTASS25 MG PO (09:53)
[2021-10-23] MEDS ORDERED: SIMVASTATIN20 MG PO (09:53)
[2021-10-23] MEDS ORDERED: ACIDOPHILUS1 EAC1 PO (09:53)
[2021-10-23] MEDS ORDERED: METFORMIN HCL500 MG PO (09:53)
[2021-10-23] MEDS ORDERED: DICLOFENAC SOD100 GM TP (09:53)
[2021-10-23] MEDS ORDERED: HUMULIN R100 UNIT/2 INJ (09:53)
[2021-10-23] MEDS ORDERED: DEXTROSE 50% SYRINGE 50 ML IV PRN ×2 (10:00)
[2021-10-23] MEDS: SODIUM CHLORIDE 0.9% 1000ML 1,000 ML IV SCH ×2 (10:23→15:34)
[2021-10-23] MEDS: HYDRALAZINE HCL 20 MG/ML VIAL IV PRN ×2 (10:23→14:14)
[2021-10-23] MEDS: DOCUSATE SODIUM LIQD 100 MG/10 ML UDC NG SCH (10:23)
[2021-10-23] MEDS: INSULIN LISPRO 100 UNIT/1 ML 3ML VIAL SQ SCH ×3 (12:07→20:46)
[2021-10-23 14:08] VITALS: BP 172/69
[2021-10-23 14:25] VITALS: BP 192/72
[2021-10-23] MEDS: ONDANSETRON HCL INJ 2MG/ML 2ML 2 MG/ML VIAL IV PRN ×2 (15:43→21:11)
[2021-10-23] MEDS: Morphine 4mg INJECTION 4 MG/ML INJ IV PRN ×2 (15:43→21:11)
[2021-10-23 15:49] VITALS: BP 178/71
[2021-10-23 20:00] VITALS: BP 137/88
[2021-10-23 21:00] VITALS: BP 137/88
[2021-10-23] MEDS: HEPARIN SOD (PORCINE) 5,000 UNIT/ML VIAL SC SCH (21:00)
[2021-10-24] VITALS (8 sets, daily range): BP systolic 106–169; BP diastolic 40–74
[2021-10-24] MEDS: SODIUM CHLORIDE 0.9% 1000ML 1,000 ML IV SCH ×3 (00:14→23:07)
[2021-10-24] MEDS: Morphine 4mg INJECTION 4 MG/ML INJ IV PRN ×2 (05:10→11:58)
[2021-10-24] MEDS: ONDANSETRON HCL INJ 2MG/ML 2ML 2 MG/ML VIAL IV PRN ×2 (05:10→11:57)
[2021-10-24 05:23] LABS: BASOPHILS % 0.4 % (0.0-1.0); EOSINOPHILS % 0.4 % (0.0-6.0); HEMATOCRIT 27.6 % (34.2-44.1); HEMOGLOBIN 9.2 g/dL (12.0-16.0); LYMPHOCYTES # (AUTO) 1.1 (1.0-3.2); LYMPHOCYTES % 11.5 % (18.0-39.1); MEAN CORPUSCULAR HEMOGLOBIN 31.5 pg (28-32); MEAN CORPUSCULAR HGB CONC 33.3 g/dL (31-35); MEAN CORPUSCULAR VOLUME 94.5 fL (81-99); MONOCYTES # (AUTO) 1.1 (0.2-0.8); PLATELET COUNT 170 x10e3/uL (140-360); RED BLOOD COUNT 2.92 x10e6/uL (3.6-5.1)
[2021-10-24 05:54] LABS: ALBUMIN 2.4 g/dL (3.5-5.0); ALBUMIN/GLOBULIN RATIO 0.8 (0.8-2.0); ANION GAP 13.2 mmol/L (8-16); CALCIUM 8.1 mg/dL (8.4-10.2); CREATININE, SERUM 1.48 mg/dL (0.57-1.11); POTASSIUM 5.2 mmol/L (3.5-5.1)
[2021-10-24] MEDS: INSULIN LISPRO 100 UNIT/1 ML 3ML VIAL SQ SCH ×4 (07:30→23:00)
[2021-10-24] MEDS: DOCUSATE SODIUM LIQD 100 MG/10 ML UDC NG SCH (08:25)
[2021-10-24] MEDS: HEPARIN SOD (PORCINE) 5,000 UNIT/ML VIAL SC SCH ×2 (08:34→23:01)
[2021-10-25] VITALS (10 sets, daily range): BP systolic 111–178; BP diastolic 59–100
[2021-10-25] MEDS: DOCUSATE SODIUM LIQD 100 MG/10 ML UDC NG SCH (03:11)
[2021-10-25] MEDS: HYDRALAZINE HCL 20 MG/ML VIAL IV PRN ×2 (03:57→07:51)
[2021-10-25 05:27] LABS: BASOPHILS % 0.4 % (0.0-1.0); EOSINOPHILS # (AUTO) 0.1 (0.0-0.4); EOSINOPHILS % 0.9 % (0.0-6.0); HEMATOCRIT 31.6 % (34.2-44.1); HEMOGLOBIN 10.1 g/dL (12.0-16.0); LYMPHOCYTES # (AUTO) 1.7 (1.0-3.2); LYMPHOCYTES % 14.9 % (18.0-39.1); MEAN CORPUSCULAR HEMOGLOBIN 30.7 pg (28-32); MONOCYTES % 8.5 % (4.4-11.3); NEUTROPHILS # (AUTO) 8.2 (2.1-6.9); NEUTROPHILS % 73.3 % (38.7-80.0); PLATELET COUNT 185 x10e3/uL (140-360); RED BLOOD COUNT 3.29 x10e6/uL (3.6-5.1); RED CELL DISTRIBUTION WIDTH 13.5 % (11.7-14.4)
[2021-10-25] MEDS: SODIUM CHLORIDE 0.9% 1000ML 1,000 ML IV SCH ×2 (05:41→12:52)
[2021-10-25 05:51] LABS: ANION GAP 16.8 mmol/L (8-16); CALCIUM 8.7 mg/dL (8.4-10.2); CREATININE, SERUM 1.47 mg/dL (0.57-1.11); POTASSIUM 3.8 mmol/L (3.5-5.1)
[2021-10-25] MEDS ORDERED: MAGNESIUM HYDROXIDE 30 ML UDC PO PRN (07:15)
[2021-10-25] MEDS: ONDANSETRON HCL INJ 2MG/ML 2ML 2 MG/ML VIAL IV PRN (07:51)
[2021-10-25] MEDS: Morphine 4mg INJECTION 4 MG/ML INJ IV PRN (07:51)
[2021-10-25] MEDS: HEPARIN SOD (PORCINE) 5,000 UNIT/ML VIAL SC SCH ×2 (07:55→23:06)
[2021-10-25] MEDS: INSULIN LISPRO 100 UNIT/1 ML 3ML VIAL SQ SCH ×4 (08:05→23:06)
[2021-10-26] VITALS (7 sets, daily range): BP systolic 137–162; BP diastolic 60–78
[2021-10-26] MEDS: SODIUM CHLORIDE 0.9% 1000ML 1,000 ML IV SCH ×2 (08:28→21:29)
[2021-10-26] MEDS: HEPARIN SOD (PORCINE) 5,000 UNIT/ML VIAL SC SCH ×2 (08:41→21:08)
[2021-10-26] MEDS: INSULIN LISPRO 100 UNIT/1 ML 3ML VIAL SQ SCH ×4 (08:41→21:08)
[2021-10-26] MEDS: DOCUSATE SODIUM LIQD 100 MG/10 ML UDC NG SCH (09:00)
[2021-10-26] MEDS: LINEZOLID 600 MG TAB PO SCH ×2 (09:08→16:15)
[2021-10-27] VITALS: BP 167/70
[2021-10-27 04:00] VITALS: BP 149/69
[2021-10-27 08:00] VITALS: BP 149/69
[2021-10-27] MEDS ORDERED: MEROPENEM 1 GM in SODIUM CHLORIDE 0.9% 100 ML IV SCH (08:45)
[2021-10-27] MEDS: HYDRALAZINE HCL 20 MG/ML VIAL IV PRN (08:46)
[2021-10-27] MEDS: HEPARIN SOD (PORCINE) 5,000 UNIT/ML VIAL SC SCH (09:00)
[2021-10-27] MEDS: DOCUSATE SODIUM LIQD 100 MG/10 ML UDC NG SCH (09:00)
[2021-10-27] MEDS: LINEZOLID 600 MG TAB PO SCH (09:00)
[2021-10-27] MEDS: INSULIN LISPRO 100 UNIT/1 ML 3ML VIAL SQ SCH ×2 (09:41→12:35)
[2021-10-27 10:00] VITALS: BP 150/80
[2021-10-27 12:00] VITALS: BP 156/86
== END 2021-10-27 15:05 | DRG 690 ==
LOC: ER 08:23 → ERHOLD 09:40 → MED/SURG2 13:32 → OBSVTOIN 10-25 09:32
PROVIDERS: ADMIT Internal Medicine; ATTEND Internal Medicine
DX: N39.0 Urinary tract infection, site not specified (principal); Z16.12 Extended spectrum beta lactamase (ESBL) resistance; N17.9 Acute kidney failure, unspecified; E11.69 Type 2 diabetes mellitus with other specified complication; Z79.4 Long term (current) use of insulin; E78.49 Other hyperlipidemia; F03.90 Unspecified dementia, unspecified severity, without behavioral disturbance, psychotic disturbance, mood disturbance, and anxiety; R13.10 Dysphagia, unspecified; G20 Parkinson's disease; E03.9 Hypothyroidism, unspecified; F41.9 Anxiety disorder, unspecified; E11.65 Type 2 diabetes mellitus with hyperglycemia; E11.22 Type 2 diabetes mellitus with diabetic chronic kidney disease; I12.9 Hypertensive chronic kidney disease with stage 1 through stage 4 chronic kidney disease, or unspecified chronic kidney disease; N18.30 Chronic kidney disease, stage 3 unspecified; B96.20 Unspecified Escherichia coli [E. coli] as the cause of diseases classified elsewhere; B96.5 Pseudomonas (aeruginosa) (mallei) (pseudomallei) as the cause of diseases classified elsewhere; B95.2 Enterococcus as the cause of diseases classified elsewhere; B96.89 Other specified bacterial agents as the cause of diseases classified elsewhere; D64.9 Anemia, unspecified; R33.9 Retention of urine, unspecified; N31.9 Neuromuscular dysfunction of bladder, unspecified
CPT/HCPCS: 0223U; 36415; 72110; 73522; 80048; 80053; 81001; 82948; 83605; 85025; 87040; 87086; 87186; 93005; 94799; 96361; 96372; 99251; 99284; G0378; J0360; J0696; J1644; J2185; J2270; J2405; J7030; J7050; J7121

== ENCOUNTER 2022-05-02 13:31 | Emergency (ER) | payer MEDICARE ==
[~2022-05-02] VITALS: Ht 165.1 cm; Wt 103.9 kg
[~2022-05-02 13:31] MED LIST changes: +ACIDOPHILUS1 EAC1 PO; +DICLOFENAC SOD100 GM TP; +HUMULIN R100 UNIT/2 INJ; +METFORMIN HCL500 MG PO; +METOPROLOL SUCC25 MG PO; +SIMVASTATIN20 MG PO; +TYLENOL325 MG PO
[2022-05-02] MEDS ORDERED: CEFDINIR300 MG PO (14:51)
[2022-05-02 15:09] VITALS: BP 113/64
[2022-05-02 15:19] LABS: CLARITY,URINE HAZY (CLEAR); COLOR,URINE YELLOW (YELLOW); KETONES,URINE NEGATIVE (NEGATIVE); LEUKOCYTE ESTERASE ,URINE MODERATE (NEGATIVE); NITRITE,URINE NEGATIVE (NEGATIVE); PROTEIN,URINE DIPSTICK NEGATIVE (NEGATIVE); URINE UROBILINOGEN 0.2 mg/dL (0.2 - 1)
[2022-05-02 15:29] LABS: BACTERIA,URINE MODERATE /HPF; WBC,URINE (MAN) 21-50 /HPF (0-5)
== END 2022-05-02 15:56 | disposition home or self-care (01) ==
LOC: ER 13:36
DX: T83.89XA Other specified complication of genitourinary prosthetic devices, implants and grafts, initial encounter (principal); I10 Essential (primary) hypertension; E11.9 Type 2 diabetes mellitus without complications; E03.9 Hypothyroidism, unspecified; F32.A Depression, unspecified; F03.90 Unspecified dementia, unspecified severity, without behavioral disturbance, psychotic disturbance, mood disturbance, and anxiety
CPT/HCPCS: 81001; 87086; 87186; 99283